=== PATIENT | male | born 1970 | race Two or more races ===

== ENCOUNTER → 2020-03-20 19:27 | Outpatient (REF) | payer MEDICAID, SELFPAY | LOC: HO.SL 19:27 | PROVIDERS: PCP Internal Medicine; Visit Provider Nurse Practitioner Family | DX: G47.33 Obstructive sleep apnea (adult) (pediatric) (principal) | CPT/HCPCS: 95810 ==

== ENCOUNTER → 2020-03-24 13:39 | Outpatient (BNVA) | payer MEDICAID, SELFPAY | PROVIDERS: PCP Internal Medicine; Referring Provider Internal Medicine; Visit Provider Surgery | DX: Z87.19 Personal history of other diseases of the digestive system (principal) | CPT/HCPCS: 46600; 99213 ==

== ENCOUNTER → 2020-03-31 14:11 | Outpatient (BNVA) | payer MEDICAID, SELFPAY | PROVIDERS: PCP Internal Medicine; Referring Provider Internal Medicine; Visit Provider Internal Medicine Endocrinology, Diabetes & Metabolism | DX: E10.65 Type 1 diabetes mellitus with hyperglycemia (principal); E10.649 Type 1 diabetes mellitus with hypoglycemia without coma; E10.21 Type 1 diabetes mellitus with diabetic nephropathy; E10.42 Type 1 diabetes mellitus with diabetic polyneuropathy; E78.5 Hyperlipidemia, unspecified; I10 Essential (primary) hypertension; E55.9 Vitamin D deficiency, unspecified; G47.30 Sleep apnea, unspecified; Z96.41 Presence of insulin pump (external) (internal) | CPT/HCPCS: 82947; 99214 ==

== ENCOUNTER → 2020-04-19 08:50 | Outpatient (BNVA) | payer MEDICAID, SELFPAY | PROVIDERS: Visit Provider Nurse Practitioner Family | DX: G47.33 Obstructive sleep apnea (adult) (pediatric) (principal); E10.42 Type 1 diabetes mellitus with diabetic polyneuropathy; E10.21 Type 1 diabetes mellitus with diabetic nephropathy; E10.649 Type 1 diabetes mellitus with hypoglycemia without coma; I10 Essential (primary) hypertension; E55.9 Vitamin D deficiency, unspecified | CPT/HCPCS: 99212 ==

== ENCOUNTER → 2020-07-04 14:16 | Outpatient (BNVA) | payer MEDICAID, SELFPAY | PROVIDERS: PCP Internal Medicine; Visit Provider Internal Medicine Endocrinology, Diabetes & Metabolism | DX: E10.65 Type 1 diabetes mellitus with hyperglycemia (principal); E10.649 Type 1 diabetes mellitus with hypoglycemia without coma; E10.21 Type 1 diabetes mellitus with diabetic nephropathy; E10.42 Type 1 diabetes mellitus with diabetic polyneuropathy; E55.9 Vitamin D deficiency, unspecified; E78.5 Hyperlipidemia, unspecified; I10 Essential (primary) hypertension | CPT/HCPCS: 82947; 99212 ==

== ENCOUNTER → 2020-07-26 09:42 | Outpatient (BNVA) | payer MEDICAID, SELFPAY | PROVIDERS: PCP Internal Medicine; Visit Provider Nurse Practitioner Family ==

== ENCOUNTER → 2020-10-05 14:16 | Outpatient (BNVA) | payer MEDICAID, SELFPAY | PROVIDERS: PCP Internal Medicine; Visit Provider Internal Medicine Endocrinology, Diabetes & Metabolism | DX: E10.65 Type 1 diabetes mellitus with hyperglycemia (principal); E10.649 Type 1 diabetes mellitus with hypoglycemia without coma; E10.21 Type 1 diabetes mellitus with diabetic nephropathy; E10.42 Type 1 diabetes mellitus with diabetic polyneuropathy; E55.9 Vitamin D deficiency, unspecified; E78.5 Hyperlipidemia, unspecified; I10 Essential (primary) hypertension | CPT/HCPCS: 82947; 99212 ==

== ENCOUNTER → 2020-11-22 08:36 | Outpatient (BNVA) | payer MEDICAID, SELFPAY | PROVIDERS: PCP Internal Medicine; Visit Provider Nurse Practitioner Family ==

== ENCOUNTER 2020-12-31 08:09 | Outpatient (REF) | payer MEDICAID, SELFPAY ==
[2020-12-31 10:38] LABS: Alanine Aminotransferase 27 U/L (0-40); Albumin Level 4.4 g/dL (3.5-5.0); Alkaline Phosphatase 60 U/L (39-117); Anion Gap 11 (12-20); Aspartate Amino Transferase 24 U/L (5-37); Bilirubin Total 0.8 mg/dL (0.0-1.0); Blood Urea Nitrogen 19 mg/dL (9-16); Calcium 9.8 mg/dL (8.4-10.2); Carbon Dioxide 27 mmol/L (22-29); Chloride 105 mmol/L (96-108); Cholesterol 196 mg/dL; Estimated Glomerular Filt Rate > 60; Glucose Fasting 112 mg/dL (60-99); HDL Cholesterol 78 mg/dL; LDL Cholesterol Calculated 112 mg/dl; Sodium 138 mmol/L (135-145); Total Protein 6.7 g/dL (6.5-8.0); Triglycerides 31 mg/dL
[2020-12-31 10:44] LABS: Free T4 (Free Thyroxine) 0.99 ng/dL (0.71-1.85); Thyroid Stimulating Hormone 0.78 uIU/mL (0.32-4.0)
[2021-01-01 13:56] LABS: LDL Cholesterol Direct 102 mg/dL (<100)
[2021-01-02 10:04] LABS: Vitamin B12 682 pg/mL (200-900)
== END 2020-12-31 08:10 | disposition home or self-care (01) ==
LOC: HO.LAB 08:09
PROVIDERS: PCP Internal Medicine; Visit Provider Internal Medicine Endocrinology, Diabetes & Metabolism
DX: E10.65 Type 1 diabetes mellitus with hyperglycemia (principal)
CPT/HCPCS: 36415; 80053; 80061; 82607; 83721; 84439; 84443

== ENCOUNTER → 2021-01-03 14:26 | Outpatient (BNVA) | payer MEDICAID, SELFPAY | PROVIDERS: PCP Internal Medicine; Visit Provider Internal Medicine Endocrinology, Diabetes & Metabolism | DX: E10.65 Type 1 diabetes mellitus with hyperglycemia (principal); E10.649 Type 1 diabetes mellitus with hypoglycemia without coma; E10.21 Type 1 diabetes mellitus with diabetic nephropathy; E10.42 Type 1 diabetes mellitus with diabetic polyneuropathy; E78.00 Pure hypercholesterolemia, unspecified; E55.9 Vitamin D deficiency, unspecified; I10 Essential (primary) hypertension | CPT/HCPCS: 82947; 99212 ==

== ENCOUNTER → 2021-04-12 15:10 | Outpatient (BNVA) | payer MEDICAID, SELFPAY | PROVIDERS: PCP Internal Medicine; Referring Provider Internal Medicine; Visit Provider Surgery | DX: Z87.19 Personal history of other diseases of the digestive system (principal) | CPT/HCPCS: 46600; 99212 ==

== ENCOUNTER 2021-04-17 13:44 | Outpatient (REF) | payer MEDICAID, SELFPAY | END 2021-04-17 13:45 | disposition home or self-care (01) | LOC: HO.LAB 13:44 | PROVIDERS: PCP Internal Medicine; Visit Provider Internal Medicine | DX: Z20.822 Contact with and (suspected) exposure to COVID-19 (principal) | CPT/HCPCS: C9803; U0003; U0005 ==

== ENCOUNTER 2021-04-27 09:37 | Outpatient (REF) | payer MEDICAID, SELFPAY ==
[2021-04-27 10:04] LABS: COVID-19 Test Negative (Negative)
== END 2021-04-27 09:38 | disposition home or self-care (01) ==
LOC: HO.LAB 09:37
PROVIDERS: PCP Internal Medicine; Visit Provider Internal Medicine
DX: Z20.822 Contact with and (suspected) exposure to COVID-19 (principal)
CPT/HCPCS: 36415; 87635; C9803

== ENCOUNTER → 2021-05-16 13:33 | Outpatient (BNVA) | payer MEDICAID, SELFPAY | PROVIDERS: PCP Internal Medicine; Visit Provider Nurse Practitioner Gerontology | DX: E10.65 Type 1 diabetes mellitus with hyperglycemia (principal); E10.649 Type 1 diabetes mellitus with hypoglycemia without coma; E10.21 Type 1 diabetes mellitus with diabetic nephropathy; E10.42 Type 1 diabetes mellitus with diabetic polyneuropathy; E78.00 Pure hypercholesterolemia, unspecified; E55.9 Vitamin D deficiency, unspecified; I10 Essential (primary) hypertension; Z79.4 Long term (current) use of insulin; Z96.41 Presence of insulin pump (external) (internal) | CPT/HCPCS: 82947; 83036; 99212 ==

== ENCOUNTER → 2021-06-08 14:05 | Outpatient (BNVA) | payer MEDICAID, SELFPAY | PROVIDERS: PCP Internal Medicine; Visit Provider Registered Nurse Diabetes Educator | DX: E10.21 Type 1 diabetes mellitus with diabetic nephropathy (principal); Z79.4 Long term (current) use of insulin; Z96.41 Presence of insulin pump (external) (internal) | CPT/HCPCS: 99211 ==

== ENCOUNTER → 2021-06-23 14:04 | Outpatient (BNVA) | payer MEDICAID, SELFPAY | PROVIDERS: PCP Internal Medicine; Visit Provider Registered Nurse Diabetes Educator | DX: E10.649 Type 1 diabetes mellitus with hypoglycemia without coma (principal); Z79.4 Long term (current) use of insulin | CPT/HCPCS: 99211 ==

== ENCOUNTER → 2021-07-13 14:36 | Outpatient (BNVA) | payer MEDICAID, SELFPAY | PROVIDERS: PCP Internal Medicine; Visit Provider Registered Nurse Diabetes Educator | DX: E10.649 Type 1 diabetes mellitus with hypoglycemia without coma (principal); Z79.4 Long term (current) use of insulin; Z96.41 Presence of insulin pump (external) (internal) | CPT/HCPCS: 99211 ==

== ENCOUNTER → 2021-08-23 15:07 | Outpatient (BNVA) | payer MEDICAID, SELFPAY | PROVIDERS: PCP Internal Medicine; Visit Provider Registered Nurse Diabetes Educator | DX: E10.21 Type 1 diabetes mellitus with diabetic nephropathy (principal); Z46.81 Encounter for fitting and adjustment of insulin pump; Z79.4 Long term (current) use of insulin | CPT/HCPCS: 99211 ==

== ENCOUNTER → 2021-09-04 14:46 | Outpatient (BNVA) | payer MEDICAID, SELFPAY | PROVIDERS: PCP Internal Medicine; Visit Provider Nurse Practitioner Gerontology | DX: E10.65 Type 1 diabetes mellitus with hyperglycemia (principal); E10.42 Type 1 diabetes mellitus with diabetic polyneuropathy; E10.21 Type 1 diabetes mellitus with diabetic nephropathy; E10.649 Type 1 diabetes mellitus with hypoglycemia without coma; E78.00 Pure hypercholesterolemia, unspecified; E55.9 Vitamin D deficiency, unspecified; I10 Essential (primary) hypertension; Z79.4 Long term (current) use of insulin; Z96.41 Presence of insulin pump (external) (internal) | CPT/HCPCS: 82947; 83036; 99212 ==

== ENCOUNTER → 2021-09-18 15:03 | Outpatient (BNVA) | payer MEDICAID, SELFPAY | PROVIDERS: PCP Internal Medicine; Visit Provider Registered Nurse Diabetes Educator | DX: E10.649 Type 1 diabetes mellitus with hypoglycemia without coma (principal); Z96.41 Presence of insulin pump (external) (internal); Z79.4 Long term (current) use of insulin | CPT/HCPCS: 99211 ==

== ENCOUNTER → 2021-10-19 13:27 | Outpatient (BNVA) | payer MEDICAID, SELFPAY | PROVIDERS: PCP Internal Medicine; Visit Provider Dietitian, Registered | DX: E10.649 Type 1 diabetes mellitus with hypoglycemia without coma (principal) | CPT/HCPCS: 97802 ==

== ENCOUNTER → 2021-12-13 14:14 | Outpatient (BNVA) | payer MEDICAID, SELFPAY | PROVIDERS: PCP Internal Medicine; Visit Provider Nurse Practitioner Gerontology | DX: E10.65 Type 1 diabetes mellitus with hyperglycemia (principal); E10.649 Type 1 diabetes mellitus with hypoglycemia without coma; E10.42 Type 1 diabetes mellitus with diabetic polyneuropathy; E10.21 Type 1 diabetes mellitus with diabetic nephropathy; E78.00 Pure hypercholesterolemia, unspecified; I10 Essential (primary) hypertension; E55.9 Vitamin D deficiency, unspecified; Z46.81 Encounter for fitting and adjustment of insulin pump; Z79.899 Other long term (current) drug therapy | CPT/HCPCS: 82947; 83036; 99212 ==

== ENCOUNTER → 2021-12-19 14:54 | Outpatient (BNVA) | payer MEDICAID, SELFPAY | PROVIDERS: PCP Internal Medicine; Visit Provider Registered Nurse Diabetes Educator | DX: Z46.81 Encounter for fitting and adjustment of insulin pump (principal); E10.649 Type 1 diabetes mellitus with hypoglycemia without coma | CPT/HCPCS: 99211 ==

== ENCOUNTER → 2022-01-10 14:06 | Outpatient (BNVA) | payer MEDICAID, SELFPAY | PROVIDERS: PCP Internal Medicine; Visit Provider Registered Nurse Diabetes Educator | DX: Z46.81 Encounter for fitting and adjustment of insulin pump (principal); E10.21 Type 1 diabetes mellitus with diabetic nephropathy | CPT/HCPCS: 99211 ==

== ENCOUNTER → 2022-01-26 13:09 | Outpatient (BNVA) | payer MEDICAID, SELFPAY | PROVIDERS: PCP Internal Medicine; Visit Provider Registered Nurse Diabetes Educator | DX: E10.649 Type 1 diabetes mellitus with hypoglycemia without coma (principal) | CPT/HCPCS: 99211 ==

== ENCOUNTER → 2022-02-01 08:21 | Outpatient (BNVA) | payer MEDICAID, SELFPAY | PROVIDERS: PCP Internal Medicine; Visit Provider Registered Nurse Diabetes Educator | DX: Z46.81 Encounter for fitting and adjustment of insulin pump (principal); E10.21 Type 1 diabetes mellitus with diabetic nephropathy; Z79.4 Long term (current) use of insulin | CPT/HCPCS: 99211 ==

== ENCOUNTER → 2022-02-08 14:58 | Outpatient (BNVA) | payer MEDICAID, SELFPAY | PROVIDERS: PCP Internal Medicine; Visit Provider Registered Nurse Diabetes Educator | DX: Z46.81 Encounter for fitting and adjustment of insulin pump (principal); E10.649 Type 1 diabetes mellitus with hypoglycemia without coma; E10.21 Type 1 diabetes mellitus with diabetic nephropathy; E10.42 Type 1 diabetes mellitus with diabetic polyneuropathy | CPT/HCPCS: 99211 ==

== ENCOUNTER → 2022-03-15 15:09 | Outpatient (BNVA) | payer MEDICAID, SELFPAY | PROVIDERS: PCP Internal Medicine; Visit Provider Internal Medicine Endocrinology, Diabetes & Metabolism | DX: E10.649 Type 1 diabetes mellitus with hypoglycemia without coma (principal) | CPT/HCPCS: 82947; 83036; 99211; 99212 ==

== ENCOUNTER 2022-03-17 07:30 | Outpatient (REF) | payer MEDICAID, SELFPAY ==
[2022-03-17 08:21] LABS: Anion Gap 15 (12-20); Blood Urea Nitrogen 13 mg/dL (9-16); Calcium 9.6 mg/dL (8.4-10.2); Carbon Dioxide 26 mmol/L (22-29); Chloride 105 mmol/L (96-108); Cholesterol 114 mg/dL; Estimated Glomerular Filt Rate > 60; Glucose Random 102 mg/dL (60-115); HDL Cholesterol 60 mg/dL; LDL Cholesterol Calculated 47 mg/dl; Potassium 4.6 mmol/L (3.3-5.1); Sodium 141 mmol/L (135-145); Triglycerides 38 mg/dL
[2022-03-17 10:13] LABS: Creatinine Urine 46.72 mg/dL; Microalbum/Creatinine Ratio Ur 34.2 ug/mg cr
== END 2022-03-17 07:31 | disposition home or self-care (01) ==
LOC: HO.LAB 07:30
PROVIDERS: Absent Provider Nurse Practitioner Gerontology; PCP Internal Medicine; Visit Provider Internal Medicine Endocrinology, Diabetes & Metabolism
DX: E10.65 Type 1 diabetes mellitus with hyperglycemia (principal)
CPT/HCPCS: 36415; 80048; 80061; 82043

== ENCOUNTER → 2022-04-03 14:58 | Outpatient (BNVA) | payer MEDICAID, SELFPAY | PROVIDERS: PCP Internal Medicine; Visit Provider Registered Nurse Diabetes Educator | DX: E10.21 Type 1 diabetes mellitus with diabetic nephropathy (principal); Z96.41 Presence of insulin pump (external) (internal); Z79.4 Long term (current) use of insulin | CPT/HCPCS: 99211; 99499 ==

== ENCOUNTER → 2022-05-23 15:06 | Outpatient (BNVA) | payer MEDICAID, SELFPAY | PROVIDERS: PCP Internal Medicine; Visit Provider Registered Nurse Diabetes Educator | DX: E10.649 Type 1 diabetes mellitus with hypoglycemia without coma (principal); Z46.81 Encounter for fitting and adjustment of insulin pump; Z79.4 Long term (current) use of insulin | CPT/HCPCS: 99211 ==

== ENCOUNTER → 2022-05-31 09:04 | Outpatient (BNVA) | payer OTHER, MEDICAID, SELFPAY | PROVIDERS: PCP Internal Medicine; Visit Provider Registered Nurse Diabetes Educator | DX: Z46.81 Encounter for fitting and adjustment of insulin pump (principal); E10.649 Type 1 diabetes mellitus with hypoglycemia without coma | CPT/HCPCS: 99211 ==

== ENCOUNTER → 2022-06-12 15:30 | Outpatient (BNVA) | payer OTHER, MEDICAID, SELFPAY | PROVIDERS: PCP Internal Medicine; Visit Provider Internal Medicine Endocrinology, Diabetes & Metabolism | DX: E10.65 Type 1 diabetes mellitus with hyperglycemia (principal); Z96.41 Presence of insulin pump (external) (internal) | CPT/HCPCS: 82947; 83036; 99212 ==

== ENCOUNTER → 2022-06-20 13:17 | Outpatient (BNVA) | payer OTHER, MEDICAID, SELFPAY | PROVIDERS: PCP Internal Medicine; Visit Provider Registered Nurse Diabetes Educator | DX: Z46.81 Encounter for fitting and adjustment of insulin pump (principal); E10.649 Type 1 diabetes mellitus with hypoglycemia without coma; E10.42 Type 1 diabetes mellitus with diabetic polyneuropathy | CPT/HCPCS: 99211 ==

== ENCOUNTER → 2022-08-08 13:29 | Outpatient (BNVA) | payer OTHER, MEDICAID, SELFPAY | PROVIDERS: PCP Internal Medicine; Visit Provider Dietitian, Registered | DX: E10.649 Type 1 diabetes mellitus with hypoglycemia without coma (principal) | CPT/HCPCS: 97802 ==

== ENCOUNTER → 2022-10-26 07:44 | Outpatient (BNVA) | payer OTHER, MEDICAID, SELFPAY | PROVIDERS: PCP Internal Medicine; Visit Provider Registered Nurse Diabetes Educator ==

== ENCOUNTER → 2022-11-13 15:02 | Outpatient (BNVA) | payer OTHER, MEDICAID, SELFPAY | PROVIDERS: PCP Internal Medicine; Visit Provider Internal Medicine Endocrinology, Diabetes & Metabolism | DX: E10.65 Type 1 diabetes mellitus with hyperglycemia (principal); Z79.4 Long term (current) use of insulin; Z96.41 Presence of insulin pump (external) (internal) | CPT/HCPCS: 82947; 83036 ==

== ENCOUNTER → 2022-11-15 11:33 | Outpatient (BNVA) | payer OTHER, MEDICAID, SELFPAY | PROVIDERS: PCP Internal Medicine; Visit Provider Registered Nurse Diabetes Educator ==

== ENCOUNTER 2022-11-17 10:07 | Outpatient (REF) | payer OTHER, MEDICAID, SELFPAY ==
[2022-11-17 11:26] LABS: Alanine Aminotransferase 17 U/L (0-40); Albumin Level 4.4 g/dL (3.5-5.0); Alkaline Phosphatase 79 U/L (39-117); Anion Gap 15 (12-20); Aspartate Amino Transferase 19 U/L (5-37); Bilirubin Direct 0.2 mg/dL (0.0-0.5); Bilirubin Total 0.6 mg/dL (0.0-1.0); Blood Urea Nitrogen 13 mg/dL (9-16); Carbon Dioxide 28 mmol/L (22-29); Chloride 104 mmol/L (96-108); Cholesterol 155 mg/dL; Estimated Glomerular Filt Rate > 60; Glucose Random 166 mg/dL (60-115); HDL Cholesterol 72 mg/dL; LDL Cholesterol Calculated 73 mg/dl; Potassium 4.7 mmol/L (3.3-5.1); Sodium 142 mmol/L (135-145); Total Protein 6.9 g/dL (6.5-8.0); Triglycerides 50 mg/dL
[2022-11-17 11:59] LABS: Prostate Specific Antigen 0.34 ng/mL (<0.05-4.0); TSH reflex Free T4 1.53 uIU/mL (0.32-4.0)
[2022-11-17 12:43] LABS: Reflex LDLD? No
[2022-11-19 04:37] LABS: HIV AB/AG Nonreactive (Nonreactive); HIV Num 1 0.06 S/CO (0.00-0.99)
[2022-11-19 04:44] LABS: ~HepC Num1 0.08 S/CO (0.00-0.79); ~Hepatitis C Antibody Nonreactive (Nonreactive)
== END 2022-11-17 10:08 | disposition home or self-care (01) ==
LOC: HO.LAB 10:07
PROVIDERS: PCP Internal Medicine; Visit Provider Internal Medicine
DX: Z00.00 Encounter for general adult medical examination without abnormal findings (principal); Z12.5 Encounter for screening for malignant neoplasm of prostate; Z11.4 Encounter for screening for human immunodeficiency virus [HIV]; E78.2 Mixed hyperlipidemia; E10.42 Type 1 diabetes mellitus with diabetic polyneuropathy; I10 Essential (primary) hypertension
CPT/HCPCS: 36415; 80048; 80061; 80076; 84153; 84443; 86803; 87389

== ENCOUNTER → 2022-12-19 10:04 | Outpatient (BNVA) | payer OTHER, MEDICAID, SELFPAY | PROVIDERS: PCP Internal Medicine; Visit Provider Surgery | DX: Z87.19 Personal history of other diseases of the digestive system (principal); K64.4 Residual hemorrhoidal skin tags | CPT/HCPCS: 46600 ==

== ENCOUNTER → 2022-12-21 07:36 | Outpatient (BNVA) | payer OTHER, MEDICAID, SELFPAY | PROVIDERS: PCP Internal Medicine; Visit Provider Registered Nurse Diabetes Educator ==

== ENCOUNTER 2023-01-28 10:06 | Outpatient (AMB) | payer OTHER, MEDICAID, SELFPAY ==
[2023-01-28 10:23] VITALS: BP 140/70
--- NOTE | 2023-01-28 10:23 | MHC.OFFVIS ---
Intake Vital Signs 01/28/23 10:23 Height 5 ft 5 in BP 140/70 H Blood Pressure Location Lt brachial Position Sitting Intake Visit Reasons: Cyst~ Lt buttock Intake Note: This patient presents for an assessment for a cyst on the left buttock. Patient c/o; reports left buttock cyst, reports tenderness. Artist'S Representative Required: No Accompanied by: Self / Same As Patient Allergies almond Allergy (Severe, Verified 01/28/23 10:24) THROAT CLOSES UP divalproex sodium [From DEPAKOTE] Allergy (Unknown, Verified 01/28/23 10:24) HIVES Medication List - Last Reconciled 01/28/23 by Aden Moore MD amlodipine 2.5 mg PO DAILY blood sugar diagnostic (FreeStyle Lite Strips) USE DIRECTED TO CHECK BLOOD SUGAR FOUR TIMES DAILY blood-glucose meter (FreeStyle Lite Meter kit) USE TO CHECK BLOOD GLUCOSE LEVEL FOUR TIMES DAILY bupropion HCl 150 mg PO QAM cholecalciferol (vitamin D3) 50 mcg PO DAILY 30 days ezetimibe 10 mg PO DAILY gabapentin 800 mg PO TID glucagon 3 mg/actuation (Baqsimi) 3 mg intranasal ONCE 30 days insulin lispro (Humalog U-100 Insulin) Up to 100 units daily via insulin pump subcut daily; via insulin pump 30 days insulin pump cart,auto,BT-cntr (Omnipod 5 G6 Intro Kit (Gen 5) subcutaneous cartridge with controller) As directed insulin pump cart,automated,BT (Omnipod 5 G6 Pods (Gen 5) subcutaneous cartridge) As directed change every 72 hrs insulin pump cart,cont inf,BT (Omnipod Dash Pods (Gen 4) subcutaneous cartridge) Replace pod every 48 hours insulin syringes (disposable) As directed injects 4 X/day lamotrigine 25 mg PO DAILY lancets (FreeStyle Lancets) As directed tests 4X/day lisinopril 40 mg PO DAILY paliperidone palmitate (Invega Sustenna) 78 mg IM quetiapine 25 mg PO BEDTIME risperidone (Risperdal) 0.5 mg PO DAILY ropinirole 1 mg PO BEDTIME rosuvastatin 40 mg PO DAILY zolpidem 10 mg PO BEDTIME PRN HPI Cyst~ Lt buttock HPI Details He has a lump on the left buttock that he wants removed. He says he has noticed this for about 4 months now. He says that this has been bothering him with pain and discomfort. 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 Mass of buttock Sleep apnea Vitamin D deficiency Surgical History History of colonoscopy (~2013) History of excision of lesion Family History Father History of hypertension Mother History of diabetes mellitus History of cardiovascular disorder History of hypertension Son History of muscular dystrophy Maternal Uncle History of prostate cancer Social History Household Members: Spouse Alcohol intake: current Alcohol intake frequency: holidays/special occasions only Patient Tobacco Use Status: Never used Tobacco e-Cigarette/Vaping Use: Currently Using Substance Use Type: Former Substance User and Marijuana Review of Systems Const Denies chills and Denies fever(s) Card Denies chest pain, Denies dyspnea and Denies dyspnea on exertion Resp Denies cough, Denies dyspnea and Denies dyspnea on exertion GI Denies hematochezia and Denies change in bowel habits Denies hematuria and Denies difficulty urinating Musc Denies back pain and Denies limited range of motion Neuro Denies focal weakness and Denies convulsions Psych Denies depression and Denies mood swings Physical Exam Vital Signs: Last Vital Signs BP 140/70 H 01/28/23 10:23 Const General: comfortable and no acute distress Orientation/consciousness: patient oriented x3 Neck Neck: Yes no lymphadenopathy Resp Auscultation: clear to auscultation bilaterally Cardio Rhythm: regular rhythm GI Palpation (GI): Soft to palpation, nontender and no guarding Back/Spine/Pelvis Other: Subcutaneous mass in the left buttock, about 1 cm in diameter, mobile and well-defined Neuro General: patient oriented x3 Assessment & Plan Assessment & Plan (1) Mass of buttock: Code(s): R22.2 - Localized swelling, mass and lump, trunk Plan: The seems to be a lipoma. I explained the technique of excision under local anesthesia in the office. I reviewed the risks including but not limited to bleeding and infections, as well as the benefits and alternatives. He wants to proceed. This will be done in the office on his next visit. Coding Level of Care Code Est Pt Level 3 (42366) Diagnoses Mass of buttock R22.2
== END 2023-01-28 10:53 | disposition home or self-care (01) ==
PROVIDERS: PCP Internal Medicine; Referring Provider Internal Medicine Geriatric Medicine; Visit Provider Surgery
DX: R22.2 Localized swelling, mass and lump, trunk (principal)
CPT/HCPCS: 99213

== ENCOUNTER → 2023-01-28 10:06 | Outpatient (BNVA) | payer OTHER, MEDICAID, SELFPAY | PROVIDERS: PCP Internal Medicine; Referring Provider Internal Medicine Geriatric Medicine; Visit Provider Surgery ==

== ENCOUNTER 2023-01-28 14:45 | Outpatient (AMB) | payer OTHER, MEDICAID, SELFPAY ==
--- NOTE | 2023-01-28 15:23 | MHC.AMDMED ---
Intake Intake Visit Reasons: DM Automatic Chief Required: No Accompanied by: Self / Same As Patient Allergies almond Allergy (Severe, Verified 01/28/23 10:24) THROAT CLOSES UP divalproex sodium [From DEPAKOTE] Allergy (Unknown, Verified 01/28/23 10:24) HIVES HPI Comprehensive Diabetes Asmnt Most Recent Diabetes Results: Cholesterol 155 mg/dL 11/17/22 HDL Cholesterol 72 mg/dL 11/17/22 Triglycerides 50 mg/dL 11/17/22 Creatinine 1.05 mg/dL (0.5-1.4) 11/17/22 Blood Urea Nitrogen 13 mg/dL (9-16) 11/17/22 Sodium 142 mmol/L (135-145) 11/17/22 Potassium 4.7 mmol/L (3.3-5.1) 11/17/22 Chloride 104 mmol/L (96-108) 11/17/22 Carbon Dioxide 28 mmol/L (22-29) 11/17/22 Calcium 10.0 mg/dL (8.4-10.2) 11/17/22 AST 19 U/L (5-37) 11/17/22 ALT 17 U/L (0-40) 11/17/22 Total Protein 6.9 g/dL (6.5-8.0) 11/17/22 Albumin 4.4 g/dL (3.5-5.0) 11/17/22 [facility] Medical History (Updated 01/28/23 @ 10:51 by Aden Moore MD) AIN grade II Diabetes mellitus Diabetes type 1, uncontrolled Diabetic nephropathy associated with type 1 diabetes mellitus Diabetic polyneuropathy associated with type 1 diabetes mellitus History of anal dysplasia Hyperlipidemia Hypertension 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 Mass of buttock Sleep apnea Vitamin D deficiency Surgical History History of colonoscopy (~2013) History of excision of lesion Family History Father History of hypertension Mother History of diabetes mellitus History of cardiovascular disorder History of hypertension Son History of muscular dystrophy Maternal Uncle History of prostate cancer Social History Household Members: Spouse Alcohol intake: current Alcohol intake frequency: holidays/special occasions only Patient Tobacco Use Status: Never used Tobacco e-Cigarette/Vaping Use: Currently Using Substance Use Type: Former Substance User and Marijuana Assessment & Plan Assessment & Plan (1) 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 Patient reports when he has hyperglycemia he prefers to set increase temp basal. Patient also continues to bolus after eating, which contributes to postprandial hyperglycemia. The following topics were reviewed today: - using activity feature with Omnipod 5 - How to interpret data - benefits of using auto mode ?auto mode:7% ?manual mode:93% - Inserting infusion set or Pod site rotation Average glucose for the past 2 weeks with 152 mg/dL Patient above target 33% Patient at target 59% Patient below target 8% Encourage patient to use auto mode as much as possible. Adjusted lunchtime insulin to carb ratio, and decreased target goals. See changes below Dexcom account information: User Name: [email or web address] Password: [email or web address] Setting verified by [employer] Basal rate(s) (units/hour) : 12 AM to 12 AM 0.65 units / hr 12 PM? to 12 AM ? 0.95 units / hr? Bolus setting Insulin Carbohydrate Ratio (s) 12 AM? to? 11 AM? 1:15?? New 11 AM to 3 PM 1:18 3 PM to 12 AM 1:14 Correction Factor / Sensitivity Factor 12 AM-5:30 AM 1:70 5:30 AM to 12 AM 1:50 Active Insulin Time:?New 3 hours Target(s): New 12 AM to 6 AM 120 mg/dL New 6 AM to 3 PM? 110 mg/dL New 3 PM to 12 AM 110 mg/dL Reverse correction: On Patient Instructions: Patient will follow-up with clinical nurse educator in 3 weeks Coding Level of Care Code Est Pt Level 1 (52705) Diagnoses 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 E10.649
== END 2023-01-28 15:28 | disposition home or self-care (01) ==
PROVIDERS: PCP Internal Medicine; Visit Provider Registered Nurse Diabetes Educator
DX: E10.649 Type 1 diabetes mellitus with hypoglycemia without coma (principal)
CPT/HCPCS: 99211

== ENCOUNTER 2023-02-11 14:40 | Outpatient (REF) | payer OTHER, MEDICAID, SELFPAY | END 2023-02-11 14:41 | disposition home or self-care (01) | LOC: HO.LNP 14:40 | PROVIDERS: PCP Internal Medicine; Visit Provider Surgery | DX: R22.2 Localized swelling, mass and lump, trunk (principal) | CPT/HCPCS: 11402; 88304; 88305 ==

== ENCOUNTER 2023-02-11 14:40 | Outpatient (AMB) | payer OTHER, MEDICAID, SELFPAY ==
[2023-02-11 14:55] VITALS: BP 96/52; PULSE 75; BMI 24.8
--- NOTE | 2023-02-11 14:55 | MHC.OFFVIS ---
Intake Vital Signs 02/11/23 14:55 Height 5 ft 5 in Weight 149 lb BMI 24.8 BP 96/52 L Blood Pressure Location Rt brachial Position Sitting Pulse 75 Intake Visit Reasons: Exc subcutaneous left buttock mass Intake Note: Ptient here for exc of lt buttock mass. 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 Mass of buttock Sleep apnea Vitamin D deficiency Surgical History History of colonoscopy (~2013) History of excision of lesion Family History Father History of hypertension Mother History of diabetes mellitus History of cardiovascular disorder History of hypertension Son History of muscular dystrophy Maternal Uncle History of prostate cancer Social History Household Members: Spouse Alcohol intake: current Alcohol intake frequency: holidays/special occasions only Patient Tobacco Use Status: Never used Tobacco e-Cigarette/Vaping Use: Currently Using Substance Use Type: Former Substance User and Marijuana Physical Exam Vital Signs: Last Vital Signs Pulse 75 02/11/23 14:55 BP 96/52 L 02/11/23 14:55 BMI result Body Mass Index 24.8 Office Procedures Excision Details: He was placed in prone position. The area of the subcutaneous mass was prepped and draped. Lidocaine 1% was used for local anesthesia. I made an incision on the skin overlying the mass. This was carried down sharply through the full-thickness of the skin and subcutaneous mass until I have visualize the mass. This was an irregular, fibrotic and calcified mass, about 1 cm in size. This was excised sharply and sent as a specimen. I closed the incision with full-thickness nylon 3-0 interrupted sutures. Dressings were applied. The procedure was completed. He tolerated procedure well. There were no immediate complications. There was minimal blood loss. [id number]/arms/legs 1.1-2cm Procedure code (CPT) selection complete Assessment & Plan Assessment & Plan (1) Mass of buttock: Code(s): R22.2 - Localized swelling, mass and lump, trunk Plan: Excision was done. He tolerated procedure well. He was given wound care instructions. He will be seen in the office for follow-up. We will await for the path report. Coding Level of Care Code Procedure Only Diagnoses Mass of buttock R22.2 CPT Codes Trunk/Arms/Legs - CPT: 73053-zaxgo/arms/legs 1.1-2cm ([id number])
== END 2023-02-11 15:38 | disposition home or self-care (01) ==
PROVIDERS: PCP Internal Medicine; Visit Provider Surgery
DX: L72.0 Epidermal cyst (principal)
CPT/HCPCS: 11402

== ENCOUNTER 2023-02-13 15:06 | Outpatient (AMB) | payer OTHER, MEDICAID, SELFPAY ==
--- NOTE | 2023-02-13 15:07 | A.OFFVIS_ITS ---
Intake Vital Signs 02/13/23 15:08 Height 5 ft 5 in Weight 149 lb 4.047 oz BMI 24.8 BP 102/44 L Blood Pressure Location Lt brachial Position Sitting Pulse 69 Pulse Source Pulse Oximeter Intake Visit Reasons: DM pump and sensor Intake Note: Patient present today to follow up on Type 1 Diabetes Mellitus. Patient receives DME supplies through: [employer] Last Diabetic Eye exam: approx 9 months ago Last Podiatry Visit: Over 1 year ago Random Glucose: 144 mg/dl HgA1C: 6.4% Javascript Ui Developer Required: No Accompanied by: Self / Same As Patient Allergies almond Allergy (Severe, Verified 02/13/23 15:12) THROAT CLOSES UP divalproex sodium [From DEPAKOTE] Allergy (Unknown, Verified 02/13/23 15:12) HIVES HPI HPI Comments History of Present Illness Details Patient is 52-year-old male with DM type 1 diagnosed at 7 years of age who presents for management of diabetes. Past medical history: Diabetes type 1, bipolar disorder hypertension hyperlipidemia Micro and macrovascular complications: Retinopathy, nephropathy Diabetes medications: Omnipod pump 5 and Dexcom G 6 with Humalog insulin. Settings Basal rate(s) (units/hour) : 12 AM to 12 AM 0.65 units / hr 12 PM? to 12 AM ? 0.95 units / hr? Bolus setting Insulin Carbohydrate Ratio (s) 12 AM? to? 11 AM? 1:15?? New 11 AM to 3 PM 1:18 3 PM to 12 AM 1:14 Correction Factor / Sensitivity Factor 12 AM-5:30 AM 1:70 5:30 AM to 12 AM 1:50 Active Insulin Time:?New 3 hours Target(s): New 12 AM to 6 AM 120 mg/dL New 6 AM to 3 PM? 110 mg/dL New 3 PM to 12 AM 110 mg/dL Total daily dose of insulin is 25.7 with 60% basal and 40% bolus. Order motors use 85% of time with manual mode 15%. Total carbs 146.5 CGM: average blood glucose for the last 2 weeks is 144. standard deviations 54. GM I 6.8 3% blood glucose very low less than 54. 4% low less than 70. 63% in target range of 71-180. The rest high. C GM is active 100%. Pattern shows hypoglycemia occurring after dinner and to a lesser extent after breakfast and lunch Symptoms reported: + Tingling in lower extremities Hypoglycemia: most days, sometimes after meals and 3 in the afternoon particularly if doesn't eat lunch . Reports that blood glucose can be down to 30 can feel normal. Treats with juice Hyperglycemia: denies urinary frequency, + nocturia, polydypsia States he is not eating as much as lost 10 lb. 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 Ophthalmology evaluation: last saw 2 mos ago Laboratory Tests 12/31/20 12/31/20 12/31/20 08:30 08:30 08:30 Creatinine 1.02 Estimated GFR > 60 Hgb A1c (Clinic) Triglycerides 31 Cholesterol 196 LDL Cholesterol Di rect 102 H LDL Cholesterol, C alc 112 HDL Cholesterol 78 Vitamin B12 682 TSH 0.78 01/03/21 15:06 Creatinine Estimated GFR Hgb A1c (Clinic) 7.3 H Triglycerides Cholesterol LDL Cholesterol Di rect LDL Cholesterol, C alc HDL Cholesterol Vitamin B12 TSH PFSH Medical History AIN grade II Diabetes mellitus Diabetes type 1, uncontrolled Diabetic nephropathy associated with type 1 diabetes mellitus Diabetic polyneuropathy associated with type 1 diabetes mellitus History of anal dysplasia Hyperlipidemia Hypertension 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 Mass of buttock Sleep apnea Vitamin D deficiency Surgical History History of colonoscopy (~2013) History of excision of lesion Family History Father History of hypertension Mother History of diabetes mellitus History of cardiovascular disorder History of hypertension Son History of muscular dystrophy Maternal Uncle History of prostate cancer Social History Household Members: Spouse Alcohol intake: current Alcohol intake frequency: holidays/special occasions only Patient Tobacco Use Status: Never used Tobacco e-Cigarette/Vaping Use: Currently Using Substance Use Type: Former Substance User and Marijuana Physical Exam Vital Signs: Last Vital Signs Pulse 69 02/13/23 15:08 BP 102/44 L 02/13/23 15:08 BMI result Body Mass Index 24.8 Absence of Cushingoid features. Absence of acromegalic features. Neck exam reveals nl size thyroid about 15 gms. No thyroid nodules palpable. No carotid bruits present. Lungs CTA. Heart S1 S2, Reg R/R. No M/R/ G. Skin exam reveals absence of vitiligo or acanthosis nigricans. Abdominal exam reveals Soft NT/ND with NA BS. No organomegaly present. Extrem Other: Visual exam of foot performed. No ulcerations or open lesions. No onchomycosis, no callouses.Pulses 2 + distally. Sensation intact to monofilament exam. Vibratory sensation sensed 10 seconds in right, 10 seconds in left with 128 Hz tuning fork Results AMB Hemoglobin A1c AMB Hemoglobin A1c 6.4 % Last Edit by Amber Spicer on 02/13/23 15:31 Results Reviewed Results Reviewed: 02/13/23 15:18 Glucose, Whole Blood Routine Laboratory Last Values Glucose (Clinic) 144 mg/dL (60-115) H 02/13/23 15:18 Hgb A1c (Clinic) 6.4 % (4.0-6.0) H 02/13/23 15:24 Assessment & Plan Assessment & Plan (1) Diabetes type 1, uncontrolled: Code(s): E10.65 - Type 1 diabetes mellitus with hyperglycemia Qualifiers: Glycemic state: with hyperglycemia Qualified Code(s): E10.65 - Type 1 diabetes mellitus with hyperglycemia Plan: This is a 51-year-old male with history of type 1 diabetes being treated with the Omnipod 5 pump with Dexcom G6 with good glycemic control and known microvascular complications namely neuropathy. The plan is to loosen the I:C to 1:15 at 3 PM Patient will follow up with automated teller manager and additional changes including loosening the insulin: Carbohydrate at lunch if patient continues to have hypoglycemia mid- afternoon may need to be made Orders: Orders AMB Hemoglobin A1c Today E10.649 - Type 1 diabetes mellitus with hypoglycemia without coma Coding Level of Care Code Est Pt Level 4 (15640) Diagnoses Diabetes type 1, uncontrolled E10.65 Glycemic state: with hyperglycemia
[2023-02-13 15:08] VITALS: BP 102/44; PULSE 69; BMI 24.8
[2023-02-13 15:22] LABS: Glucose, Whole Blood 144 mg/dL (60-115)
== END 2023-02-13 15:41 | disposition home or self-care (01) ==
PROVIDERS: PCP Internal Medicine; Visit Provider Internal Medicine Endocrinology, Diabetes & Metabolism
DX: E10.65 Type 1 diabetes mellitus with hyperglycemia (principal); E10.649 Type 1 diabetes mellitus with hypoglycemia without coma
CPT/HCPCS: 99214

== ENCOUNTER → 2023-02-13 15:06 | Outpatient (BNVA) | payer OTHER, MEDICAID, SELFPAY | PROVIDERS: PCP Internal Medicine; Visit Provider Internal Medicine Endocrinology, Diabetes & Metabolism | DX: E10.649 Type 1 diabetes mellitus with hypoglycemia without coma (principal); E10.65 Type 1 diabetes mellitus with hyperglycemia; E10.21 Type 1 diabetes mellitus with diabetic nephropathy; E10.42 Type 1 diabetes mellitus with diabetic polyneuropathy; Z79.4 Long term (current) use of insulin; Z96.41 Presence of insulin pump (external) (internal) | CPT/HCPCS: 82947; 83036 ==

== ENCOUNTER 2023-02-20 14:12 | Outpatient (AMB) | payer OTHER, MEDICAID, SELFPAY ==
--- NOTE | 2023-02-20 14:44 | A.OFFVIS_ITS ---
Intake Intake Visit Reasons: DM Computer Network And Systems Engineer Required: No Accompanied by: Self / Same As Patient Allergies almond Allergy (Severe, Verified 02/13/23 15:12) THROAT CLOSES UP divalproex sodium [From DEPAKOTE] Allergy (Unknown, Verified 02/13/23 15:12) HIVES HPI Comprehensive Diabetes Asmnt Most Recent Diabetes Results: Cholesterol 155 mg/dL 11/17/22 HDL Cholesterol 72 mg/dL 11/17/22 Triglycerides 50 mg/dL 11/17/22 Creatinine 1.05 mg/dL (0.5-1.4) 11/17/22 Blood Urea Nitrogen 13 mg/dL (9-16) 11/17/22 Sodium 142 mmol/L (135-145) 11/17/22 Potassium 4.7 mmol/L (3.3-5.1) 11/17/22 Chloride 104 mmol/L (96-108) 11/17/22 Carbon Dioxide 28 mmol/L (22-29) 11/17/22 Calcium 10.0 mg/dL (8.4-10.2) 11/17/22 AST 19 U/L (5-37) 11/17/22 ALT 17 U/L (0-40) 11/17/22 Total Protein 6.9 g/dL (6.5-8.0) 11/17/22 Albumin 4.4 g/dL (3.5-5.0) 11/17/22 [facility] Medical History AIN grade II Diabetes mellitus Diabetes type 1, uncontrolled Diabetic nephropathy associated with type 1 diabetes mellitus Diabetic polyneuropathy associated with type 1 diabetes mellitus History of anal dysplasia Hyperlipidemia Hypertension 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 Mass of buttock Sleep apnea Vitamin D deficiency Surgical History History of colonoscopy (~2013) History of excision of lesion Family History Father History of hypertension Mother History of diabetes mellitus History of cardiovascular disorder History of hypertension Son History of muscular dystrophy Maternal Uncle History of prostate cancer Social History Household Members: Spouse Alcohol intake: current Alcohol intake frequency: holidays/special occasions only Patient Tobacco Use Status: Never used Tobacco e-Cigarette/Vaping Use: Currently Using Substance Use Type: Former Substance User and Marijuana Assessment & Plan Assessment & Plan (1) 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 Patient reports when he has hyperglycemia he prefers to set increase temp basal.? Patient also continues to bolus after eating, which contributes to postprandial hyperglycemia. The following topics were reviewed today: - using activity feature with Omnipod 5 - How to interpret data - benefits of using auto mode ?auto mode:65% ?manual mode:35% - Inserting infusion set or Pod site rotation Average glucose for the past 2 weeks with 146 mg/dL Patient above target 25% Patient at target 67% Patient below target 8% Patient has improved time spent in auto mode from 7% to 65% in the last 3 weeks, patient is still consistently having extended hypoglycemic events when he is in auto mode. See decreases to basal rate in increase to insulin to carb ratio below. ? Dexcom account information: User Name: [email or web address] Password: [email or web address] Setting verified by [employer], see changes below Basal rate(s) (units/hour) : 12 AM to 12 AM 0.65 units / hr New 12 AM to 12 AM 0.50 units / hr 12 PM? to 12 AM ? 0.95 units / hr?New 2 PM? to 12 AM ? 0.75 units / hr? Bolus setting Insulin Carbohydrate Ratio (s) 12 AM? to? 11 AM? 1:15??New 12 AM? to? 11 AM? 1:16 11 AM to 3 PM 1:18 New 11 AM to 3 PM 1:18.5 3 PM to 12 AM 1:15 New 3 PM to 12 AM 1:16 Correction Factor / Sensitivity Factor 12 AM-5:30 AM 1:70 5:30 AM to 12 AM 1:50 Active Insulin Time:?New 3 hours Target(s): 12 AM to 6 AM 120 mg/dL 6 AM to 3 PM? 110 mg/dL 3 PM to 12 AM 110 mg/dL Reverse correction: On Patient Instructions: Patient will follow-up with sewer pipe offbearer in 3 months, patient will contact sewer pipe offbearer if hypoglycemia persists Coding Level of Care Code Est Pt Level 1 (64911) Diagnoses 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 E10.649
== END 2023-02-20 14:44 | disposition home or self-care (01) ==
PROVIDERS: PCP Internal Medicine; Visit Provider Registered Nurse Diabetes Educator
DX: E10.649 Type 1 diabetes mellitus with hypoglycemia without coma (principal)

== ENCOUNTER → 2023-02-20 14:12 | Outpatient (BNVA) | payer OTHER, MEDICAID, SELFPAY | PROVIDERS: PCP Internal Medicine; Visit Provider Registered Nurse Diabetes Educator | DX: Z46.81 Encounter for fitting and adjustment of insulin pump (principal); E10.649 Type 1 diabetes mellitus with hypoglycemia without coma | CPT/HCPCS: 99211 ==

== ENCOUNTER 2023-02-25 14:45 | Outpatient (AMB) | payer OTHER, MEDICAID, SELFPAY ==
--- NOTE | 2023-02-25 14:48 | A.OFFVIS_ITS ---
Intake Vital Signs 02/25/23 14:52 Height 5 ft 5 in Weight 147 lb BMI 24.5 BP 119/56 L Blood Pressure Location Rt brachial Position Sitting Pulse 67 Intake Visit Reasons: Follow Up Exc left buttock mass Intake Note: This patient presents for a post-op assessment status post excision left buttock mass. Patient c/o; reports no complaints or concerns at this time pertaining to surgery. Lands Resource Manager Required: No Accompanied by: Self / Same As Patient Allergies almond Allergy (Severe, Verified 02/25/23 14:53) THROAT CLOSES UP divalproex sodium [From DEPAKOTE] Allergy (Unknown, Verified 02/25/23 14:53) HIVES HPI Follow Up Exc left buttock mass HPI Details He underwent excision of a left buttock mass under local anesthesia last 02/11/2023. He tolerated procedure well and currently denies significant complaints. 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 Diabetic nephropathy associated with type 1 diabetes mellitus Diabetic polyneuropathy associated with type 1 diabetes mellitus Diabetes type 1, uncontrolled AIN grade II Hyperlipidemia Hypertension Diabetes mellitus Surgical History History of excision of mass (~02/11/23) History of excision of lesion History of colonoscopy (~2013) Family History Father History of hypertension Mother History of diabetes mellitus History of cardiovascular disorder History of hypertension Son History of muscular dystrophy Maternal Uncle History of prostate cancer Social History Household Members: Spouse Alcohol intake: current Alcohol intake frequency: holidays/special occasions only Patient Tobacco Use Status: Never used Tobacco e-Cigarette/Vaping Use: Currently Using Substance Use Type: Former Substance User and Marijuana Review of Systems Const Denies chills and Denies fever(s) Card Denies chest pain, Denies dyspnea and Denies dyspnea on exertion Resp Denies cough, Denies dyspnea and Denies dyspnea on exertion GI Denies hematochezia and Denies change in bowel habits Denies hematuria and Denies difficulty urinating Musc Denies back pain and Denies limited range of motion Neuro Denies focal weakness and Denies convulsions Psych Denies depression and Denies mood swings Physical Exam Vital Signs: Last Vital Signs Pulse 67 02/25/23 14:52 BP 119/56 L 02/25/23 14:52 BMI result Body Mass Index 24.5 Const General: comfortable and no acute distress Back/Spine/Pelvis Other: Excision site on the left buttock is well healed, not infected, sutures intact Assessment & Plan Assessment & Plan (1) Mass of buttock: Code(s): R22.2 - Localized swelling, mass and lump, trunk Plan: Status post excision. His path report shows panniculitis and subcutaneous fat necrosis. His incision is well healed. I removed his sutures. I explained to him the benign nature of the pathology. He can follow up on a p.r.n. basis. Coding Level of Care Code Global (81302) Diagnoses Mass of buttock R22.2
[2023-02-25 14:52] VITALS: BP 119/56; PULSE 67; BMI 24.5
== END 2023-02-25 14:57 | disposition home or self-care (01) ==
PROVIDERS: PCP Internal Medicine; Visit Provider Surgery
DX: R22.2 Localized swelling, mass and lump, trunk (principal)
CPT/HCPCS: 99024

== ENCOUNTER → 2023-02-25 14:45 | Outpatient (BNVA) | payer OTHER, MEDICAID, SELFPAY | PROVIDERS: PCP Internal Medicine; Visit Provider Surgery ==

== ENCOUNTER 2023-05-22 14:35 | Outpatient (AMB) | payer OTHER, MEDICAID, SELFPAY ==
--- NOTE | 2023-05-22 15:13 | MHC.AMDMED ---
Intake Intake Visit Reasons: DM/Confirmed Junior Designer Required: No Accompanied by: Self / Same As Patient Allergies almond Allergy (Severe, Verified 02/25/23 14:53) THROAT CLOSES UP divalproex sodium [From DEPAKOTE] Allergy (Unknown, Verified 02/25/23 14:53) HIVES HPI Comprehensive Diabetes Asmnt Most Recent Diabetes Results: No Data to Display [facility] Medical History Mass of buttock History of anal dysplasia Sleep apnea Vitamin D deficiency 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 Diabetic nephropathy associated with type 1 diabetes mellitus Diabetic polyneuropathy associated with type 1 diabetes mellitus Diabetes type 1, uncontrolled AIN grade II Hyperlipidemia Hypertension Diabetes mellitus Surgical History History of excision of mass (~02/11/23) History of excision of lesion History of colonoscopy (~2013) Family History Father History of hypertension Mother History of diabetes mellitus History of cardiovascular disorder History of hypertension Son History of muscular dystrophy Maternal Uncle History of prostate cancer Social History Household Members: Spouse Alcohol intake: current Alcohol intake frequency: holidays/special occasions only Patient Tobacco Use Status: Never used Tobacco e-Cigarette/Vaping Use: Currently Using Substance Use Type: Former Substance User and Marijuana Assessment & Plan Assessment & Plan (1) 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: Code(s): E10.649 - Type 1 diabetes mellitus with hypoglycemia without coma Plan: Patient presents for pump training for Omnipod 5 with Dexcom G 6 The following topics were reviewed today: - using activity feature with Omnipod 5 - How to interpret data - benefits of using auto mode - Inserting infusion set or Pod site rotation Average glucose for the past 2 weeks with 184 mg/dL Patient above target 43% Patient at target 52% Patient below target 4% patient is in auto mode 52% the time in manual on 48% time. on days where patient is in auto mode his average glucose is 140 mg/dL, on days that patient is in manual mode his glucose is averaging 200 mg/dL patient reports that he has been eating more than usual so he has been switching into manual mode to use temp basal, but then forgets to go back into auto mode Patient also continues to bolus after eating, which contributes to postprandial hyperglycemia. encourage patient to bolus 15 minutes prior to meals ? Dexcom account information: User Name: [email or web address] Password: [email or web address] Setting verified by [facility], see changes below Basal rate(s) (units/hour) : 12 AM to 12 AM 0.60 units / hr New 12 AM to 12 AM 0.65 units / hr 12 PM? to 12 AM ? 0.75 units / hr?New 2 PM? to 12 AM ? 0.95 units / hr? Bolus setting Insulin Carbohydrate Ratio (s) 12 AM? to? 11 AM? 1:16??New 12 AM? to? 11 AM? 1:15.5 11 AM to 3 PM 1:18.5 New 11 AM to 3 PM 1:18 3 PM to 12 AM 1:16 New 3 PM to 12 AM 1:15.5 Correction Factor / Sensitivity Factor 12 AM-5:30 AM 1:70 5:30 AM to 12 AM 1:50 Active Insulin Time:?New 3 hours Target(s): 12 AM to 6 AM 120 mg/dL 6 AM to 3 PM? 110 mg/dL 3 PM to 12 AM 110 mg/dL Reverse correction: On Coding Level of Care Code Est Pt Level 1 (13240) Diagnoses 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 E10.649
== END 2023-05-22 15:14 | disposition home or self-care (01) ==
PROVIDERS: PCP Internal Medicine; Visit Provider Registered Nurse Diabetes Educator
DX: E10.649 Type 1 diabetes mellitus with hypoglycemia without coma (principal)

== ENCOUNTER → 2023-05-22 14:35 | Outpatient (BNVA) | payer OTHER, MEDICAID, SELFPAY | PROVIDERS: PCP Internal Medicine; Visit Provider Registered Nurse Diabetes Educator | DX: Z46.81 Encounter for fitting and adjustment of insulin pump (principal); E10.649 Type 1 diabetes mellitus with hypoglycemia without coma | CPT/HCPCS: 99211 ==

== ENCOUNTER 2023-05-29 14:41 | Outpatient (AMB) | payer OTHER, MEDICAID, SELFPAY ==
[2023-05-29 14:42] VITALS: BP 122/48; PULSE 66; BMI 25.0
--- NOTE | 2023-05-29 14:42 | MHC.OFFVIS ---
Intake Vital Signs 05/29/23 14:42 Height 5 ft 5 in Weight 150 lb 5.684 oz BMI 25.0 BP 122/48 L Blood Pressure Location Lt brachial Position Sitting Pulse 66 Pulse Source Pulse Oximeter Intake Visit Reasons: DM-CONFIRMED Intake Note: Patient presents today to follow up on DMT1. Last Diabetic Eye exam: 04/2022 Last Podiatry Visit: None Random Glucose: 153 mg/dl HgA1C:7.1% Entry Level Paralegal Required: No Accompanied by: Self / Same As Patient Allergies almond Allergy (Severe, Verified 05/29/23 14:48) THROAT CLOSES UP divalproex sodium [From DEPAKOTE] Allergy (Unknown, Verified 05/29/23 14:48) HIVES HPI HPI Comments History of Present Illness Details Patient is 52-year-old male with DM type 1 diagnosed at 7 years of age who presents for management of diabetes. Past medical history: Diabetes type 1, bipolar disorder hypertension hyperlipidemia Micro and macrovascular complications: Retinopathy, nephropathy Diabetes medications: Omnipod pump 5 and Dexcom G 6 with Humalog insulin. Settings Basal rate(s) (units/hour) : 12 AM to 12 PM 0.65 units / hr 12 PM? to 12 AM ? 0.95 units / hr? Bolus setting Insulin Carbohydrate Ratio (s) 12 AM? to? 11 AM? 1:15.5?? New 11 AM to 3 PM 1:18 3 PM to 12 AM 1:15.5 Correction Factor / Sensitivity Factor 12 AM-5:30 AM 1:70 5:30 AM to 12 AM 1:60 Active Insulin Time:?New 3 hours Target(s): New 12 AM to 6 AM 120 mg/dL New 6 AM to 3 PM? 110 mg/dL New 3 PM to 12 AM 110 mg/dL Total daily dose of insulin is 27.5 with 59% basal and 41% bolus. Auto mode use 55% of time with manual mode 45%. Total carbs 127.8 CGM: average blood glucose for the last 2 weeks is 162. standard deviations 68. GM I 7.2 23% blood glucose very low less than 54. 4% low less than 70. 58% in target range of 71-180. The rest high. C GM is active 100%. Pattern shows hypoglycemia occurring after dinner and to a lesser extent after breakfast and lunch Symptoms reported: + Tingling in lower extremities Hypoglycemia: rare l. Treats with juice Hyperglycemia: denies urinary frequency, + nocturia, polydypsia States he is not eating as much as lost 10 lb. 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 Ophthalmology evaluation: last saw beginning of this yr Laboratory Tests 12/31/20 12/31/20 12/31/20 08:30 08:30 08:30 Creatinine 1.02 Estimated GFR > 60 Hgb A1c (Clinic) Triglycerides 31 Cholesterol 196 LDL Cholesterol Di rect 102 H LDL Cholesterol, C alc 112 HDL Cholesterol 78 Vitamin B12 682 TSH 0.78 01/03/21 15:06 Creatinine Estimated GFR Hgb A1c (Clinic) 7.3 H Triglycerides Cholesterol LDL Cholesterol Di rect LDL Cholesterol, C alc HDL Cholesterol Vitamin B12 TSH PFSH Medical History Mass of buttock History of anal dysplasia Sleep apnea Vitamin D deficiency 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 Diabetic nephropathy associated with type 1 diabetes mellitus Diabetic polyneuropathy associated with type 1 diabetes mellitus Diabetes type 1, uncontrolled AIN grade II Hyperlipidemia Hypertension Diabetes mellitus Surgical History History of excision of mass (~02/11/23) History of excision of lesion History of colonoscopy (~2013) Family History Father History of hypertension Mother History of diabetes mellitus History of cardiovascular disorder History of hypertension Son History of muscular dystrophy Maternal Uncle History of prostate cancer Social History Household Members: Spouse Alcohol intake: current Alcohol intake frequency: holidays/special occasions only Patient Tobacco Use Status: Never used Tobacco e-Cigarette/Vaping Use: Currently Using Substance Use Type: Former Substance User and Marijuana Physical Exam Vital Signs: Last Vital Signs Pulse 66 05/29/23 14:42 BP 122/48 L 05/29/23 14:42 BMI result Body Mass Index 25.0 Absence of Cushingoid features. Absence of acromegalic features. Neck exam reveals nl size thyroid about 15 gms. No thyroid nodules palpable. No carotid bruits present. Lungs CTA. Heart S1 S2, Reg R/R. No M/R/ G. Skin exam reveals absence of vitiligo or acanthosis nigricans. Abdominal exam reveals Soft NT/ND with NA BS. No organomegaly present. Extrem Other: Visual exam of foot performed. No ulcerations or open lesions. No onchomycosis, no callouses.Pulses 2 + distally. Sensation intact to monofilament exam. Vibratory sensation sensed 10 seconds in right, 10 seconds in left with 128 Hz tuning fork Results Reviewed Results Reviewed: Laboratory Last Values Glucose (Clinic) 153 mg/dL (60-115) H 05/29/23 14:53 Assessment & Plan Assessment & Plan (1) Diabetes type 1, uncontrolled: Code(s): E10.65 - Type 1 diabetes mellitus with hyperglycemia Qualifiers: Glycemic state: with hyperglycemia Qualified Code(s): E10.65 - Type 1 diabetes mellitus with hyperglycemia Plan: This is a 51-year-old male with history of type 1 diabetes being treated with the Omnipod 5 pump with Dexcom G6 with good glycemic control and known microvascular complications namely neuropathy. But significant hypoglycemia early and mid afternoon The plan is to impress on the patient to use the auto mode more frequently and to bolus before meals. If he continues to experience hypoglycemia while in auto mode could consider loosening insulin: Carbohydrate at 00:00 to 01:16. He can make that adjustment we follows up with the telehealth nurse educator if necessary. Will also check microalbumin to creatinine ratio Orders: Orders Microalbumin, Random (w Creat) Today E10.65 - Type 1 diabetes mellitus with hyperglycemia Coding Level of Care Code Est Pt Level 4 (25899) Diagnoses Uncontrolled type 1 diabetes mellitus with hyperglycemia E10.65 Glycemic state: with hyperglycemia
[2023-05-29 14:58] LABS: Glucose, Whole Blood 153 mg/dL (60-115)
== END 2023-05-29 16:23 | disposition home or self-care (01) ==
PROVIDERS: PCP Internal Medicine; Visit Provider Internal Medicine Endocrinology, Diabetes & Metabolism
DX: E10.65 Type 1 diabetes mellitus with hyperglycemia (principal)
CPT/HCPCS: 99214

== ENCOUNTER → 2023-05-29 14:41 | Outpatient (BNVA) | payer OTHER, MEDICAID, SELFPAY | PROVIDERS: PCP Internal Medicine; Visit Provider Internal Medicine Endocrinology, Diabetes & Metabolism | DX: E10.65 Type 1 diabetes mellitus with hyperglycemia (principal); Z96.41 Presence of insulin pump (external) (internal) | CPT/HCPCS: 82947 ==

== ENCOUNTER → 2023-05-30 14:20 | Outpatient (BNV) | payer OTHER, MEDICAID, SELFPAY | PROVIDERS: PCP Internal Medicine; Visit Provider Internal Medicine Endocrinology, Diabetes & Metabolism | DX: E10.42 Type 1 diabetes mellitus with diabetic polyneuropathy (principal) | CPT/HCPCS: 83036 ==

== ENCOUNTER 2023-07-23 15:01 | Outpatient (AMB) | payer OTHER, MEDICAID, SELFPAY ==
--- NOTE | 2023-07-23 15:05 | A.OFFVIS_ITS ---
Intake Intake Visit Reasons: DM/CONFIRMED Airdrop Systems Technician Required: No Accompanied by: Self / Same As Patient Allergies almond Allergy (Severe, Verified 05/29/23 14:48) THROAT CLOSES UP divalproex sodium [From DEPAKOTE] Allergy (Unknown, Verified 05/29/23 14:48) HIVES HPI Comprehensive Diabetes Asmnt Most Recent Diabetes Results: No Data to Display [facility] Medical History Mass of buttock History of anal dysplasia Sleep apnea Vitamin D deficiency 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 Diabetic nephropathy associated with type 1 diabetes mellitus Diabetic polyneuropathy associated with type 1 diabetes mellitus Diabetes type 1, uncontrolled AIN grade II Hyperlipidemia Hypertension Diabetes mellitus Surgical History History of excision of mass (~02/11/23) History of excision of lesion History of colonoscopy (~2013) Family History Father History of hypertension Mother History of diabetes mellitus History of cardiovascular disorder History of hypertension Son History of muscular dystrophy Maternal Uncle History of prostate cancer Social History Household Members: Spouse Alcohol intake: current Alcohol intake frequency: holidays/special occasions only Patient Tobacco Use Status: Never used Tobacco e-Cigarette/Vaping Use: Currently Using Substance Use Type: Former Substance User and Marijuana Assessment & Plan Assessment & Plan (1) Diabetic polyneuropathy associated with type 1 diabetes mellitus: Code(s): E10.42 - Type 1 diabetes mellitus with diabetic polyneuropathy Plan: Patient presents for pump training for Omnipod 5 with Dexcom G 6 The following topics were reviewed today: - using activity feature with Omnipod 5 - How to interpret data - benefits of using auto mode - Inserting infusion set or Pod site rotation Average glucose for the past 2 weeks with 152 mg/dL Patient above target 30% Patient at target 65% Patient below target 5% patient has increase automode 83% from 52% at prior visit. Reports he still uses temp basal when he knows he is going to eat lot of high carbohydrate foods. He also will use temp basal when he feels his glucose levels are going too low Patient continues to work towards bolusing before meals ? Dexcom account information: User Name: [email or web address] Password: [email or web address]! Setting verified by [facility], no changes made at today's visit Basal rate(s) (units/hour) : 12 AM to 12 AM 0.65 units / hr 2 PM? to 12 AM ? 0.95 units / hr? Bolus setting Insulin Carbohydrate Ratio (s) 12 AM? to? 11 AM? 1:15.5 11 AM to 3 PM 1:18 New 3 PM to 12 AM 1:15.5 Correction Factor / Sensitivity Factor 12 AM-5:30 AM 1:70 5:30 AM to 12 AM 1:50 Active Insulin Time:?New 3 hours Target(s): 12 AM to 6 AM 120 mg/dL 6 AM to 3 PM? 110 mg/dL 3 PM to 12 AM 110 mg/dL Reverse correction: On Patient Instructions: Patient will follow-up with welding machine operator thermit in 4 months Coding Level of Care Code Est Pt Level 1 (99871) Diagnoses Diabetic polyneuropathy associated with type 1 diabetes mellitus E10.42
== END 2023-07-23 15:28 | disposition home or self-care (01) ==
PROVIDERS: PCP Internal Medicine; Visit Provider Registered Nurse Diabetes Educator
DX: E10.42 Type 1 diabetes mellitus with diabetic polyneuropathy (principal)

== ENCOUNTER → 2023-07-23 15:01 | Outpatient (BNVA) | payer OTHER, MEDICAID, SELFPAY | PROVIDERS: PCP Internal Medicine; Visit Provider Registered Nurse Diabetes Educator | DX: Z46.81 Encounter for fitting and adjustment of insulin pump (principal); E10.42 Type 1 diabetes mellitus with diabetic polyneuropathy | CPT/HCPCS: 99211 ==

== ENCOUNTER 2023-09-14 09:08 | Outpatient (REF) | payer OTHER, MEDICAID, SELFPAY ==
[2023-09-14 10:13] LABS: Creatinine Urine 61.05 mg/dL; Microalbum/Creatinine Ratio Ur 173.6 ug/mg cr (<30)
== END 2023-09-14 09:09 | disposition home or self-care (01) ==
LOC: HO.LAB 09:08
PROVIDERS: PCP Internal Medicine; Visit Provider Internal Medicine Endocrinology, Diabetes & Metabolism
DX: E10.65 Type 1 diabetes mellitus with hyperglycemia (principal)
CPT/HCPCS: 82043; 82570

== ENCOUNTER 2023-10-09 14:24 | Outpatient (AMB) | payer OTHER, MEDICAID, SELFPAY ==
--- NOTE | 2023-10-09 14:33 | A.OFFVIS_ITS ---
Vital Signs 10/09/23 14:38 Height 5 ft 5 in Weight 151 lb 10.848 oz BMI 25.2 BP 132/56 L Blood Pressure Location Rt brachial Position Sitting Pulse 72 Pulse Source Pulse Oximeter Intake Visit Reasons: DM with pump Intake Note: Patient presents today to follow up on D1MT. Patient receives DME supplies through: [employer] Patient receives pump supplies through: [facility] Last Diabetic Eye exam:has an upcoming appt in November Last Podiatry Visit: Does not see a Director [employer] Random Glucose: 197 mg/dl HgA1c: 7.4% Lead Burner Helper Required: No Accompanied by: Self / Same As Patient Allergies almond Allergy (Severe, Verified 10/09/23 14:39) THROAT CLOSES UP divalproex sodium [From DEPAKOTE] Allergy (Unknown, Verified 10/09/23 14:39) HIVES Medication List - Last Reconciled 10/09/23 by Peña Garcia MD blood sugar diagnostic (FreeStyle Lite Strips) DIRECTED TO TEST BLOOD SUGAR FOUR TIMES DAILY blood-glucose meter (FreeStyle Lite Meter kit) USE DIRECTED TO TEST BLOOD SUGAR FOUR TIMES DAILY. bupropion HCl XL 300 mg PO QAM buspirone 10 mg PO BID gabapentin 800 mg PO TID insulin lispro (Humalog U-100 Insulin) Up to 100 units daily via insulin pump subcut daily; via insulin pump 30 days insulin pump cart,auto,BT-cntr (Omnipod 5 G6 Intro Kit (Gen 5) subcutaneous cartridge with controller) As directed insulin pump cart,automated,BT (Omnipod 5 G6 Pods (Gen 5) subcutaneous cartridge) As directed change every 72 hrs insulin pump cart,cont inf,BT (Omnipod Dash Pods (Gen 4) subcutaneous cartridge) Replace pod every 48 hours insulin syringes (disposable) As directed injects 4 X/day lancets (FreeStyle Lancets) As directed tests 4X/day lisinopril 40 mg PO DAILY lorazepam 0.5 mg PO TID PRN mirtazapine 45 mg PO BEDTIME quetiapine 25 mg PO BEDTIME quetiapine 200 mg PO BEDTIME rosuvastatin 40 mg PO DAILY HPI Comments Details: Patient is 53-year-old male with DM type 1 diagnosed at 7 years of age who presents for management of diabetes. Past medical history: Diabetes type 1, bipolar disorder hypertension hyperlipidemia Micro and macrovascular complications: Retinopathy, nephropathy Diabetes medications: Omnipod pump 5 and Dexcom G 6 with Humalog insulin. Settings Basal rate(s) (units/hour) : 12 AM to 12 PM 0.60 units / hr 12 PM? to 12 AM ? 0.95 units / hr? Bolus setting Insulin Carbohydrate Ratio (s) 12 AM? to? 11 AM? 1:15.5 11 AM to 3 PM 1:18 New 3 PM to 12 AM 1:15.5 Correction Factor / Sensitivity Factor 12 AM-5:30 AM 1:70 5:30 AM to 12 AM 1:50 Active Insulin Time:?New 3 hours Target(s): 12 AM to 6 AM 120 mg/dL 6 AM to 3 PM? 110 mg/dL 3 PM to 12 AM 110 mg/dL Total daily dose of insulin is 27.3 with 58% basal and 42% bolus. Auto mode use 93% of time with manual mode 7%. Total carbs 142.9 CGM: average blood glucose for the last 2 weeks is 157 . standard deviations 60. GM I 7.1 1 % blood glucose very low less than 54. 3% low less than 70. 58% in target range of 71-180. The rest high. C GM is active 100%. Pattern shows hypoglycemia occurring after breakfas tand to a lesser extent after lunch and dinner Symptoms reported: + Tingling in lower extremities Hypoglycemia: after breakfast Treats with juice Hyperglycemia: denies urinary frequency, + nocturia, polydypsia States he is not eating as much as lost 10 lb. 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 Ophthalmology evaluation: last saw last yr - has appt 11/2023 Laboratory Tests 12/31/20 12/31/20 12/31/20 08:30 08:30 08:30 Creatinine 1.02 Estimated GFR > 60 Hgb A1c (Clinic) Triglycerides 31 Cholesterol 196 LDL Cholesterol Direct 102 H LDL Cholesterol, Calc 112 HDL Cholesterol 78 Vitamin B12 682 TSH 0.78 01/03/21 15:06 Creatinine Estimated GFR Hgb A1c (Clinic) 7.3 H Triglycerides Cholesterol LDL Cholesterol Direct LDL Cholesterol, Calc HDL Cholesterol Vitamin B12 TSH [facility] Medical History Mass of buttock History of anal dysplasia Sleep apnea Vitamin D deficiency 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 Diabetic nephropathy associated with type 1 diabetes mellitus Diabetic polyneuropathy associated with type 1 diabetes mellitus Diabetes type 1, uncontrolled AIN grade II Hyperlipidemia Hypertension Diabetes mellitus Surgical History History of excision of mass (~02/11/23) History of excision of lesion History of colonoscopy (~2013) Family History Father History of hypertension Mother History of diabetes mellitus History of cardiovascular disorder History of hypertension Son History of muscular dystrophy Maternal Uncle History of prostate cancer Social History Household Members: Spouse Alcohol intake: current Alcohol intake frequency: holidays/special occasions only Patient Tobacco Use Status: Never used Tobacco e-Cigarette/Vaping Use: Currently Using Substance Use Type: Former Substance User and Marijuana Physical Exam Vital Signs: Last Vital Signs Pulse 72 10/09/23 14:38 BP 132/56 L 10/09/23 14:38 BMI result Body Mass Index 25.2 Absence of Cushingoid features. Absence of acromegalic features. Neck exam reveals nl size thyroid about 15 gms. No thyroid nodules palpable. No carotid bruits present. Lungs CTA. Heart S1 S2, Reg R/R. No M/R/ G. Skin exam reveals absence of vitiligo or acanthosis nigricans. Abdominal exam reveals Soft NT/ND with NA BS. No organomegaly present. Extrem Other: Visual exam of foot performed. No ulcerations or open lesions. No onchomycosis, no callouses.Pulses 2 + distally. Sensation intact to monofilament exam. Vibratory sensation sensed 10 seconds in right, 10 seconds in left with 128 Hz tuning fork Results AMB Hemoglobin A1c AMB Hemoglobin A1c 7.4 % Last Edit by ATIF Carrasco on 10/09/23 15:03 Results Reviewed Results Reviewed: Laboratory Last Values Glucose (Clinic) 197 mg/dL (60-115) H 10/09/23 14:46 Assessment & Plan Assessment & Plan (1) Diabetes type 1, uncontrolled: Code(s): E10.65 - Type 1 diabetes mellitus with hyperglycemia Category: Medical Qualifiers: Glycemic state: with hyperglycemia Qualified Code(s): E10.65 - Type 1 diabetes mellitus with hyperglycemia Plan: This is a 53-year-old male with history of type 1 diabetes being treated with the Omnipod 5 pump with Dexcom G6 with good glycemic control and known microvascular complications namely neuropathy. But significant hypoglycemia early afternoon The plan is to i loosening insulin: Carbohydrate at 00:00 to 01:17. He can make that adjustment we follows up with the automatic machines supervisor if necessary. . Microalbuminuria has worsened and will recheck in 3 months' time. If microalbumin remains persistently elevated, could consider adding hydrochlorothiazide if bp remains elevated . Another alternative would be to add Karendia Orders: Orders Microalbumin, Random (w Creat) 3 Months E10.65 - Type 1 diabetes mellitus with hyperglycemia AMB Hemoglobin A1c Today E10.65 - Type 1 diabetes mellitus with hyperglycemia Coding Level of Care Code Est Pt Level 4 (01859) Diagnoses Uncontrolled type 1 diabetes mellitus with hyperglycemia E10.65 Glycemic state: with hyperglycemia
[2023-10-09 14:38] VITALS: BP 132/56; PULSE 72; BMI 25.2
[2023-10-09 14:50] LABS: Glucose, Whole Blood 197 mg/dL (60-115)
== END 2023-10-09 15:17 | disposition home or self-care (01) ==
PROVIDERS: PCP Internal Medicine; Visit Provider Internal Medicine Endocrinology, Diabetes & Metabolism
DX: E10.65 Type 1 diabetes mellitus with hyperglycemia (principal)
CPT/HCPCS: 99214

== ENCOUNTER → 2023-10-09 14:24 | Outpatient (BNVA) | payer OTHER, MEDICAID, SELFPAY | PROVIDERS: PCP Internal Medicine; Visit Provider Internal Medicine Endocrinology, Diabetes & Metabolism | DX: E10.65 Type 1 diabetes mellitus with hyperglycemia (principal); Z96.41 Presence of insulin pump (external) (internal) | CPT/HCPCS: 82947; 83036 ==

== ENCOUNTER 2023-10-15 12:31 | Outpatient (REF) | payer OTHER, MEDICAID, SELFPAY ==
--- NOTE | ~2023-10-15 | XR_ITS ---
EXAMINATION: XR SHOULDER, RIGHT CLINICAL INFORMATION: Right shoulder pain. COMPARISON: None available. TECHNIQUE: 5 views of the right shoulder. FINDINGS: Moderate degenerative changes in the acromioclavicular joint with joint space narrowing and hypertrophic change. Glenohumeral alignment preserved. Tiny calcifications in the soft tissues along the superolateral aspect of the humeral head suggestive of rotator cuff pathology. XR/XR shoulder RT min 2V IMPRESSION: 1. Moderate degenerative changes in the acromioclavicular joint. 2. Tiny calcifications in the soft tissues along the superolateral aspect of the humeral head suggestive of rotator cuff pathology.
== END 2023-10-15 12:32 | disposition home or self-care (01) ==
LOC: HO.XRAY 12:31
PROVIDERS: PCP Internal Medicine; Visit Provider Internal Medicine
DX: M25.511 Pain in right shoulder (principal)
CPT/HCPCS: 73030

== ENCOUNTER 2023-11-05 14:28 | Outpatient (AMB) | payer OTHER, MEDICAID, SELFPAY ==
[2023-11-05 14:45] VITALS: BMI 25.1
--- NOTE | 2023-11-05 14:45 | A.OFFVIS_ITS ---
Vital Signs 11/05/23 14:45 Height 5 ft 5 in Weight 151 lb BMI 25.1 Intake Visit Reasons: Acute pain of the right shoulder. Intake Note: Vasiliy is a 53 year old 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 male who presents as a new patient with Right shoulder pain and weakness. The patient states that his symptoms have gotten worse over the last year in spite of continued non operative treatments. 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 He has done physical therapy which aggravated his pain. The patient has failed the last 6 weeks of conservative treatment. He has tried Tylenol and anti- inflammatory medicines which gave him minimal relief. The patient states that he has weakness when lifting his right hand above shoulder height. Allergies almond Allergy (Severe, Verified 11/05/23 14:59) THROAT CLOSES UP divalproex sodium [From DEPAKOTE] Allergy (Unknown, Verified 11/05/23 14:59) [facility] Medical History Mass of buttock History of anal dysplasia Sleep apnea Vitamin D deficiency 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 Diabetic nephropathy associated with type 1 diabetes mellitus Diabetic polyneuropathy associated with type 1 diabetes mellitus Diabetes type 1, uncontrolled AIN grade II Hyperlipidemia Hypertension Diabetes mellitus Surgical History History of excision of mass (~02/11/23) History of excision of lesion History of colonoscopy (~2013) Family History Father History of hypertension Mother History of diabetes mellitus History of cardiovascular disorder History of hypertension Son History of muscular dystrophy Maternal Uncle History of prostate cancer Social History Household Members: Spouse Alcohol intake: current Alcohol intake frequency: holidays/special occasions only Patient Tobacco Use Status: Never used Tobacco e-Cigarette/Vaping Use: Currently Using Substance Use Type: Former Substance User and Marijuana Current occupational status: employed 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, 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 Physical Exam Vital Signs: BMI result Body Mass Index 25.1 Const Other: Well-nourished well-developed very friendly male awake alert and oriented x3 in no acute distress Extrem Other: Bilateral upper extremity examination shows good capillary refill, no skin lesions noted, normal sensation light touch Right shoulder examination shows decreased range of motion when compared to his left shoulder, 4+ out of 5 strength with supraspinatus testing, positive impingement signs, tenderness over his acromioclavicular joint, no instability Results Reviewed Results Reviewed: X-rays of the patient's right shoulder show severe acromioclavicular joint narrowing, a type 2 acromion, no acute bony abnormalities Assessment & Plan Assessment & Plan (1) Right shoulder pain: Code(s): M25.511 - Pain in right shoulder Category: Medical Plan Mr. Pierce presents with progressively worsening right shoulder pain and weakness due to impingement syndrome and possible full-thickness rotator cuff tearing. Thus, I will send the patient for an MRI of his right shoulder for further evaluation. If he does have a full-thickness tear I will recommend surgical repair to optimize his future functional level. The patient will continue with his range of motion exercises in the meantime. Feel free to call me at any time should questions regarding his orthopedic management arise. Thank you very much for asking me to see this very friendly gentleman. I spent 20 minutes in reviewing the patient's records and imaging studies, seeing the patient and documenting in the medical record. Orders: Orders MR shoulder RT wo con Today M25.511 - Pain in right shoulder Coding Level of Care Code New Pt Level 3 (58080) Diagnoses Right shoulder pain M25.511
== END 2023-11-05 15:23 | disposition home or self-care (01) ==
PROVIDERS: PCP Internal Medicine; Visit Provider Orthopaedic Surgery
DX: M25.511 Pain in right shoulder (principal)
CPT/HCPCS: 99203

== ENCOUNTER → 2023-11-05 14:28 | Outpatient (BNVA) | payer OTHER, MEDICAID, SELFPAY | PROVIDERS: PCP Internal Medicine; Visit Provider Orthopaedic Surgery ==

== ENCOUNTER 2023-11-19 12:57 | Outpatient (REF) | payer OTHER, MEDICAID, SELFPAY ==
[2023-11-19 14:32] LABS: Creatinine Urine 20.91 mg/dL
== END 2023-11-19 12:58 | disposition home or self-care (01) ==
LOC: HO.LAB 12:57
PROVIDERS: PCP Internal Medicine; Visit Provider Internal Medicine Endocrinology, Diabetes & Metabolism
DX: E10.65 Type 1 diabetes mellitus with hyperglycemia (principal)
CPT/HCPCS: 82043; 82570

== ENCOUNTER 2023-11-21 15:14 | Outpatient (AMB) | payer OTHER, MEDICAID, SELFPAY ==
--- NOTE | 2023-11-21 15:44 | MHC.AMDMED ---
Intake Intake Visit Reasons: DM/CONFIRMED Provisioning Analyst Required: No Accompanied by: Self / Same As Patient Allergies almond Allergy (Severe, Verified 11/05/23 14:59) THROAT CLOSES UP divalproex sodium [From DEPAKOTE] Allergy (Unknown, Verified 11/05/23 14:59) HIVES HPI Comprehensive Diabetes Asmnt Most Recent Diabetes Results: Microalb/Creat Ratio 86.0 ug/mg cr (<30) H 11/19/23 PFSH Medical History Mass of buttock History of anal dysplasia Sleep apnea Vitamin D deficiency 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 Diabetic nephropathy associated with type 1 diabetes mellitus Diabetic polyneuropathy associated with type 1 diabetes mellitus Diabetes type 1, uncontrolled AIN grade II Hyperlipidemia Hypertension Diabetes mellitus Surgical History History of excision of mass (~02/11/23) History of excision of lesion History of colonoscopy (~2013) Family History Father History of hypertension Mother History of diabetes mellitus History of cardiovascular disorder History of hypertension Son History of muscular dystrophy Maternal Uncle History of prostate cancer Social History Household Members: Spouse Alcohol intake: current Alcohol intake frequency: holidays/special occasions only Patient Tobacco Use Status: Never used Tobacco e-Cigarette/Vaping Use: Currently Using Substance Use Type: Former Substance User and Marijuana Current occupational status: employed 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 Dexcom account information: User Name: Password: [email or web address]! 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 Reviewed with patient how to use activity mode. Showed patient how to turn it on and set time. Reinforced the importance of reducing the amount of hypoglycemia. Changed insulin to carb ratio after 3PM, see below Setting verified by CDCES, see changes made at today's visit Basal rate(s) (units/hour) : 12 AM to 12 AM 0.65 units / hr 2 PM? to 12 AM ? 0.95 units / hr? Bolus setting Insulin Carbohydrate Ratio (s) 12 AM? to? 11 AM? 1:15.5 11 AM to 3 PM 1:18 3 PM to 12 AM 1:15.5 New 3 PM to 12 AM 1:16 Correction Factor / Sensitivity Factor 12 AM-5:30 AM 1:70 5:30 AM to 12 AM 1:50 Active Insulin Time:?New 3 hours Patient Instructions: Patient will follow-up in 2 weeks Coding Level of Care Code Est Pt Level 1 (39542) Diagnoses 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 E10.649
== END 2023-11-21 15:47 | disposition home or self-care (01) ==
PROVIDERS: PCP Internal Medicine; Visit Provider Registered Nurse Diabetes Educator
DX: E10.649 Type 1 diabetes mellitus with hypoglycemia without coma (principal)

== ENCOUNTER → 2023-11-21 15:14 | Outpatient (BNVA) | payer OTHER, MEDICAID, SELFPAY | PROVIDERS: PCP Internal Medicine; Visit Provider Registered Nurse Diabetes Educator | DX: E10.649 Type 1 diabetes mellitus with hypoglycemia without coma (principal); Z46.81 Encounter for fitting and adjustment of insulin pump; Z79.4 Long term (current) use of insulin | CPT/HCPCS: 99211 ==

== ENCOUNTER 2023-11-30 07:17 | Outpatient (REF) | payer OTHER, MEDICAID, SELFPAY ==
[2023-11-30 08:17] LABS: Anion Gap 12 (12-20); Blood Urea Nitrogen 13 mg/dL (9-16); Calcium 9.3 mg/dL (8.4-10.2); Carbon Dioxide 27 mmol/L (22-29); Chloride 108 mmol/L (96-108); Cholesterol 141 mg/dL (<200); Estimated Glomerular Filt Rate > 60; Glucose Random 108 mg/dL (60-115); HDL Cholesterol 71 mg/dL (>40); LDL Cholesterol Calculated 65 mg/dL (<100); Potassium 4.3 mmol/L (3.3-5.1); Sodium 143 mmol/L (135-145); Triglycerides 28 mg/dL (<150)
== END 2023-11-30 07:18 | disposition home or self-care (01) ==
LOC: HO.LAB 07:17
PROVIDERS: Visit Provider Internal Medicine Endocrinology, Diabetes & Metabolism
DX: E10.65 Type 1 diabetes mellitus with hyperglycemia (principal)
CPT/HCPCS: 36415; 80048; 80061

== ENCOUNTER 2023-12-05 15:08 | Outpatient (AMB) | payer OTHER, MEDICAID, SELFPAY ==
--- NOTE | 2023-12-05 15:30 | A.OFFVIS_ITS ---
Intake Intake Visit Reasons: DM/CONFIRMED Quality Assurance/R&D Lab Technician Required: No Accompanied by: Self / Same As Patient Allergies almond Allergy (Severe, Verified 11/05/23 14:59) THROAT CLOSES UP divalproex sodium [From DEPAKOTE] Allergy (Unknown, Verified 11/05/23 14:59) HIVES HPI Comprehensive Diabetes Asmnt Most Recent Diabetes Results: Microalb/Creat Ratio 86.0 ug/mg cr (<30) H 11/19/23 Cholesterol 141 mg/dL (<200) 11/30/23 HDL Cholesterol 71 mg/dL (>40) 11/30/23 Triglycerides 28 mg/dL (<150) 11/30/23 Creatinine 0.84 mg/dL (0.5-1.4) 11/30/23 Blood Urea Nitrogen 13 mg/dL (9-16) 11/30/23 Sodium 143 mmol/L (135-145) 11/30/23 Potassium 4.3 mmol/L (3.3-5.1) 11/30/23 Chloride 108 mmol/L (96-108) 11/30/23 Carbon Dioxide 27 mmol/L (22-29) 11/30/23 Calcium 9.3 mg/dL (8.4-10.2) 11/30/23 [facility] Medical History Mass of buttock History of anal dysplasia Sleep apnea Vitamin D deficiency 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 Diabetic nephropathy associated with type 1 diabetes mellitus Diabetic polyneuropathy associated with type 1 diabetes mellitus Diabetes type 1, uncontrolled AIN grade II Hyperlipidemia Hypertension Diabetes mellitus Surgical History History of excision of mass (~02/11/23) History of excision of lesion History of colonoscopy (~2013) Family History Father History of hypertension Mother History of diabetes mellitus History of cardiovascular disorder History of hypertension Son History of muscular dystrophy Maternal Uncle History of prostate cancer Social History Household Members: Spouse Alcohol intake: current Alcohol intake frequency: holidays/special occasions only Patient Tobacco Use Status: Never used Tobacco e-Cigarette/Vaping Use: Currently Using Substance Use Type: Former Substance User and Marijuana Current occupational status: employed 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, 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 Assessment & Plan Assessment & Plan (1) 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: Code(s): E10.649 - Type 1 diabetes mellitus with hypoglycemia without coma Plan: Patient presents for pump training for Omnipod 5 with Dexcom G 6 The following topics were reviewed today: - using activity feature with Omnipod 5 - using extended bolus for snacking in the evening - benefits of using auto mode - Inserting infusion set or Pod site rotation Average glucose for the past 2 weeks with 143 mg/dL Patient above target 21% Patient at target 74% Patient below target 5% Automode 80% Manual 20% ? Dexcom account information: User Name: [email or web address] Password: [email or web address]! Patient's of hypoglycemia has improved from 11% to 5%, patient is still having hypoglycemia in afternoon and early evening. This could be due to physicality of his job and patient is concerned about his kidney function so reports sometimes he over corrects or puts temp basal on when he thinks glucose is too high Setting verified by CDCES, see changes made at today's visit Basal rate(s) (units/hour) : 12 AM to 12 AM 0.65 units / hr 2 PM? to 12 AM ? 0.95 units / hr? Bolus setting Insulin Carbohydrate Ratio (s) 12 AM? to? 11 AM? 1:15.5 11 AM to 3 PM 1:18 3 PM to 12 AM 1:16 Correction Factor / Sensitivity Factor 12 AM-5:30 AM 1:70 5:30 AM to 12 AM 1:50 Target: 120 mg/dL Target threshold 130 mg/dL Due to patient's hypoglycemic events between 14:00 to 19:00 increased target goal to 130 mg/dL Active Insulin Time:?3 hours Patient Instructions: Patient will follow-up with staff educator in 1 month Coding Level of Care Code Est Pt Level 1 (72105) Diagnoses 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 E10.649
== END 2023-12-05 15:37 | disposition home or self-care (01) ==
PROVIDERS: PCP Internal Medicine; Visit Provider Registered Nurse Diabetes Educator
DX: E10.649 Type 1 diabetes mellitus with hypoglycemia without coma (principal)

== ENCOUNTER → 2023-12-05 15:08 | Outpatient (BNVA) | payer OTHER, MEDICAID, SELFPAY | PROVIDERS: PCP Internal Medicine; Visit Provider Registered Nurse Diabetes Educator | DX: Z46.81 Encounter for fitting and adjustment of insulin pump (principal); E10.649 Type 1 diabetes mellitus with hypoglycemia without coma | CPT/HCPCS: 99211 ==

== ENCOUNTER 2023-12-23 14:32 | Outpatient (AMB) | payer OTHER, MEDICAID, SELFPAY ==
[2023-12-23 14:34] VITALS: BMI 25.1
--- NOTE | 2023-12-23 14:34 | A.OFFVIS_ITS ---
Vital Signs 12/23/23 14:34 Height 5 ft 5 in Weight 151 lb BMI 25.1 Intake Visit Reasons: OV-Acute pain of the right shoulder-6wk F/U Intake Note: Vasiliy is a 53 year old right hand dominant male who presents today for a follow up of right shoulder pain. Patient reports that he is having pain in both of his shoulders, right shoulder worse than the left. 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 Hx of DM. Allergies almond Allergy (Severe, Verified 11/05/23 14:59) THROAT CLOSES UP divalproex sodium [From DEPAKOTE] Allergy (Unknown, Verified 11/05/23 14:59) HIVES HPI HPI OV-Acute pain of the right shoulder-6wk F/U: Details: This is a 53 yo M with right shoulder pain for ~6 months. 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 He is diabetic and his sugard have been running high ( 300s) recently. He describes right shoulder pain at night and with overhead work/reaching. [facility] Medical History Mass of buttock History of anal dysplasia Sleep apnea Vitamin D deficiency 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 Diabetic nephropathy associated with type 1 diabetes mellitus Diabetic polyneuropathy associated with type 1 diabetes mellitus Diabetes type 1, uncontrolled AIN grade II Hyperlipidemia Hypertension Diabetes mellitus Surgical History History of excision of mass (~02/11/23) History of excision of lesion History of colonoscopy (~2013) Family History Father History of hypertension Mother History of diabetes mellitus History of cardiovascular disorder History of hypertension Son History of muscular dystrophy Maternal Uncle History of prostate cancer Social History Household Members: Spouse Alcohol intake: current Alcohol intake frequency: holidays/special occasions only Patient Tobacco Use Status: Never used Tobacco e-Cigarette/Vaping Use: Currently Using Substance Use Type: Former Substance User and Marijuana Current occupational status: employed 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, 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 Physical Exam Vital Signs: BMI result Body Mass Index 25.1 Const General: cooperative, healthy appearing, no acute distress and well groomed Orientation/consciousness: oriented to person and oriented to place HEENT Head: Yes normal to inspection, Yes normocephalic and Yes atraumatic Eyes General: appearance normal, both eyes and all related structures Alignment and Position: alignment normal Conjunctivae: conjunctivae normal EOM: EOMs intact bilaterally Neck Neck: Yes normal visual inspection and Yes trachea midline Resp Other: No rerpiratory distress Effort & Inspection: normal respiratory effort and able to speak in complete sentences Cardio Other: Palpable radial pulse with no appreciable rythmic abnormalities GI Other: No abdominal distension Back/Spine/Pelvis Cervical Spine: normal cervical lordosis and cervical ROM normal Skin General skin exam: no rashes or lesions noted Neuro General: oriented to person, oriented to place and gait normal Extrem Other: Shoulder: 30/90/`30/L5 +H/N Neg lift off/EC Results Reviewed Results Reviewed: I personally reviewed relevant radiographs. Nl shoulder radiographs Assessment & Plan Assessment & Plan (1) Right shoulder pain: Code(s): M25.511 - Pain in right shoulder Category: Medical Plan: This is a 53 yo RHD powder coat painter with atraumatic right shoulder pain. He has not done PT. Injections are currently contraindicated given high sugars. He will see me back after PT. Orders: Orders PT Evaluation and Treatment 12/23/23 M25.511 - Pain in right shoulder Coding Level of Care Code Est Pt Level 4 (10539) Diagnoses Right shoulder pain M25.511
== END 2023-12-23 14:52 | disposition home or self-care (01) ==
PROVIDERS: PCP Internal Medicine; Visit Provider Orthopaedic Surgery
DX: M25.511 Pain in right shoulder (principal)
CPT/HCPCS: 99213

== ENCOUNTER → 2023-12-23 14:32 | Outpatient (BNVA) | payer OTHER, MEDICAID, SELFPAY | PROVIDERS: PCP Internal Medicine; Visit Provider Orthopaedic Surgery ==

== ENCOUNTER 2024-01-01 14:41 | Outpatient (AMB) | payer OTHER, MEDICAID, SELFPAY ==
--- NOTE | 2024-01-01 15:46 | MHC.OFFVIS ---
Vital Signs 01/01/24 15:48 Height 5 ft 5 in Weight 152 lb BMI 25.3 BP 157/72 H Blood Pressure Location Lt brachial Position Sitting Pulse 61 Intake Visit Reasons: History of anal dysplasia, 1 year Intake Note: This patient presents for a yearly follow-up for History of anal dysplasia. Patient c/o: no concerns. Senior Construction Manager Required: No Accompanied by: Self / Same As Patient Allergies almond Allergy (Severe, Verified 01/01/24 15:47) THROAT CLOSES UP divalproex sodium [From DEPAKOTE] Allergy (Unknown, Verified 01/01/24 15:47) HIVES Medication List - Last Reconciled 01/01/24 by Aden Moore MD blood sugar diagnostic (FreeStyle Lite Strips) DIRECTED TO TEST BLOOD SUGAR FOUR TIMES DAILY blood-glucose meter (FreeStyle Lite Meter kit) USE DIRECTED TO TEST BLOOD SUGAR FOUR TIMES DAILY. gabapentin 800 mg PO TID Humalog U-100 Insulin (insulin lispro) 100 units subcut DAILY NS insulin pump cart,auto,BT-cntr (Omnipod 5 G6 Intro Kit (Gen 5) subcutaneous cartridge with controller) As directed insulin pump cart,automated,BT (Omnipod 5 G6 Pods (Gen 5) subcutaneous cartridge) As directed change every 72 hrs insulin pump cart,cont inf,BT (Omnipod Dash Pods (Gen 4) subcutaneous cartridge) Replace pod every 48 hours insulin syringes (disposable) As directed injects 4 X/day lancets (FreeStyle Lancets) As directed tests 4X/day lisinopril 40 mg PO DAILY lorazepam 0.5 mg PO TID PRN quetiapine 25 mg PO BEDTIME quetiapine 200 mg PO BEDTIME rosuvastatin 40 mg PO DAILY HPI HPI History of anal dysplasia, 1 year: Details: 53-year-old male here for follow-up for a history of AIN 2. He had an anal polyp removed in 2019. This had shown a into in the specimen He currently denies any bleeding. Denies any pain in his anus or rectum. He denies any GI complaints. PENDING SALE TO [facility] Medical History Mass of buttock History of anal dysplasia Sleep apnea Vitamin D deficiency 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 Diabetic nephropathy associated with type 1 diabetes mellitus Diabetic polyneuropathy associated with type 1 diabetes mellitus Diabetes type 1, uncontrolled AIN grade II Hyperlipidemia Hypertension Diabetes mellitus Surgical History History of excision of mass (~02/11/23) History of excision of lesion History of colonoscopy (~2013) Family History Father History of hypertension Mother History of diabetes mellitus History of cardiovascular disorder History of hypertension Son History of muscular dystrophy Maternal Uncle History of prostate cancer Social History Household Members: Spouse Alcohol intake: current Alcohol intake frequency: holidays/special occasions only Patient Tobacco Use Status: Never used Tobacco e-Cigarette/Vaping Use: Currently Using Substance Use Type: Former Substance User and Marijuana Current occupational status: employed 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, 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 Review of Systems Const Denies chills and Denies fever(s) Card Denies chest pain, Denies dyspnea and Denies dyspnea on exertion Resp Denies cough, Denies dyspnea and Denies dyspnea on exertion GI Denies hematochezia and Denies change in bowel habits Denies hematuria and Denies difficulty urinating Musc Denies back pain and Denies limited range of motion Neuro Denies focal weakness and Denies convulsions Psych Denies depression and Denies mood swings Physical Exam Vital Signs: Last Vital Signs Pulse 61 01/01/24 15:48 BP 157/72 H 01/01/24 15:48 BMI result Body Mass Index 25.3 Const General: comfortable and no acute distress Orientation/consciousness: patient oriented x3 Neck Neck: Yes no lymphadenopathy Resp Auscultation: clear to auscultation bilaterally Cardio Rhythm: regular rhythm GI Other: Rectal exam shows no perianal lesions Palpation (GI): Soft to palpation, nontender and no guarding Neuro General: patient oriented x3 Office Procedures Anoscopy He was in yolanda-knife position. The anoscope was gently inserted. A full examination of the anal canal was done. He had small hemorrhoidal tissue internal. There were no lesions. No obvious abnormality of the mucosa or the anoderm. I did not see any bleeding. There was no fissure or ulceration There was no induration on digital exam. [id number] Assessment & Plan Assessment & Plan (1) History of anal dysplasia: Code(s): Z87.19 - Personal history of other diseases of the digestive system Category: Medical Plan: Current exam and anoscopy done does not reveal any abnormality in the anal canal all the perirectal area. There were no lesions, any ulceration or fissure. There was no bleeding He denies any complaints with regards to his anus. We will repeat his colonoscopy in about a year. I emphasized this to him and he says he understands. Coding Level of Care Code Est Pt Level 3 (02325) Diagnoses History of anal dysplasia Z87.19 CPT Codes Details - CPT: 45262-[id number] ([id number])
[2024-01-01 15:48] VITALS: BP 157/72; PULSE 61; BMI 25.3
== END 2024-01-01 16:11 | disposition home or self-care (01) ==
PROVIDERS: PCP Internal Medicine; Visit Provider Surgery
DX: Z87.19 Personal history of other diseases of the digestive system (principal)
CPT/HCPCS: 46600; 99213

== ENCOUNTER → 2024-01-01 14:41 | Outpatient (BNVA) | payer OTHER, MEDICAID, SELFPAY | PROVIDERS: PCP Internal Medicine; Visit Provider Surgery | DX: Z87.19 Personal history of other diseases of the digestive system (principal) | CPT/HCPCS: 46600 ==

== ENCOUNTER 2024-01-08 14:39 | Outpatient (AMB) | payer OTHER, MEDICAID, SELFPAY ==
--- NOTE | 2024-01-08 14:45 | A.OFFVIS_ITS ---
Vital Signs 01/08/24 14:50 Height 5 ft 5 in Weight 152 lb 1.903 oz BMI 25.3 BP 134/64 Blood Pressure Location Rt brachial Position Sitting Pulse 68 Pulse Source Pulse Oximeter Intake Visit Reasons: T1DM/CONFIRMED Intake Note: New Patient presents today to established treatment for Type 1 Diabetes Mellitus: Most recent Eye Exam: Has an appt on 01/09/2024 Most recent Podiatry Exam: Does not see a Lower School Spanish Teacher Most recent HbA1c: 7.0 %, 01/08/2024 Random Glucose- 85mg/dL, Today Greenkeeper Required: No Accompanied by: Self / Same As Patient Allergies almond Allergy (Severe, Verified 01/08/24 14:45) THROAT CLOSES UP divalproex sodium [From DEPAKOTE] Allergy (Unknown, Verified 01/08/24 14:45) HIVES HPI Comments Details: Patient is 53-year-old male with DM type 1 diagnosed at 7 years of age who presents for management of diabetes. He was last seen by Dr. Garcia 10/08 and by Brittani DIAZ earlier today. Past medical history: Diabetes type 1, bipolar disorder hypertension hyperlipidemia Micro and macrovascular complications: Retinopathy, nephropathy Diabetes medications: Omnipod pump 5 and Dexcom G 6 with Humalog insulin. He is entering an extensive amount of carbs in the evening. 24 recall shows not enough protein intake during the day and excess carbs in the cecy Dexcom average glucose: [162 ] Glucose Managment indicator [7.2 ] % TIme in range: [12] % very high (above 250) [20 ] % high ?(181-250) [ 62] % in range ?(70-180] [3 ] % low (69-55) [3 ] % ?very low (below 54) Basal rate(s) (units/hour) : 12 AM to 12 AM 0.65 units / hr 2 PM? to 12 AM ? 0.95 units / hr? Bolus setting Insulin Carbohydrate Ratio (s) 12 AM? to? 11 AM? 17 11 AM to 3 PM 1:18 3 PM to 12 AM 1:14 Correction Factor / Sensitivity Factor 12 AM-5:30 AM 1:70 5:30 AM to 12 AM 1:50 Target: 120 mg/dL Target threshold 120 mg/dL 2:00pm to 7 PM 130 mg/dL 7 PM to 12 AM 110 mg/dL Active Insulin Time:?3 hours Symptoms reported: + Tingling in lower extremities Hypoglycemia: rare. 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 - [employer] education: followed by [employer] Spanish Teacher: Ophthalmology evaluation: goes annually [facility] Medical History Mass of buttock History of anal dysplasia Sleep apnea Vitamin D deficiency 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 Diabetic nephropathy associated with type 1 diabetes mellitus Diabetic polyneuropathy associated with type 1 diabetes mellitus Diabetes type 1, uncontrolled AIN grade II Hyperlipidemia Hypertension Diabetes mellitus Surgical History History of excision of mass (~02/11/23) History of excision of lesion History of colonoscopy (~2013) Family History Father History of hypertension Mother History of diabetes mellitus History of cardiovascular disorder History of hypertension Son History of muscular dystrophy Maternal Uncle History of prostate cancer Social History Household Members: Spouse Alcohol intake: current Alcohol intake frequency: holidays/special occasions only Patient Tobacco Use Status: Never used Tobacco e-Cigarette/Vaping Use: Currently Using Substance Use Type: Former Substance User and Marijuana Current occupational status: employed 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 No ulcerations or open lesions. No onchomycosis, no callouses. Sensation intact to monofilament exam. Vibratory sensation is normal with 128 Hz tuning fork. Results AMB Hemoglobin A1c AMB Hemoglobin A1c 7.0 % Last Edit by ATIF Wade on 01/08/24 15:05 Results Reviewed Results Reviewed: Laboratory Last Values Glucose (Clinic) 85 mg/dL (60-115) 01/08/24 14:55 Hgb A1c (Clinic) 7.0 % (4.0-6.0) H 01/08/24 15:05 Laboratory Tests 11/17/22 10/09/23 11/30/23 10:25 14:49 07:25 Potassium 4.3 BUN 13 Creatinine 0.84 Estimated GFR > 60 Random Glucose 108 Hgb A1c (Clinic) 7.4 H Calcium 9.3 D Triglycerides 28 Cholesterol 141 LDL Cholesterol, Calc 65 HDL Cholesterol 71 TSH 1.53 Assessment & Plan Assessment & Plan (1) Diabetes type 1, uncontrolled: Code(s): E10.65 - Type 1 diabetes mellitus with hyperglycemia Category: Medical Qualifiers: Glycemic state: with hyperglycemia Qualified Code(s): E10.65 - Type 1 diabetes mellitus with hyperglycemia Plan: TYpe 1 with swings in glucose readings. He is entering fictious carbs in the evening. Caerb ratio adjustment to give additional insulin for carbs and he was asked to accurately enter carbs. He was also asked to increase protein intake during the day ad to reduce the amount of carbohydrates he is consuming in the evening. Patient teaching: The patient was counseled to achieve a target A1C of 7% (154 avg). Fasting blood sugars should be 90-130 in the morning and less than 180 two hours after meals. Reviewed the relationship between poor diabetic control and the developement of complications The patient was counseled to always carry a source of sugar and on the rule of 15's: Take 3 glucose tablets and repeat again in 15 minutes if blood sugar is not in normal range. Continue to repeat every 15 minutes until blood sugar is normal. Backup insulin plan, DKA prevention and high glucose protocol Orders: Orders AMB Hemoglobin A1c 01/08/24 E11.9 - Type 2 diabetes mellitus without complications Coding Level of Care Code Est Pt Level 4 (69737) Diagnoses Uncontrolled type 1 diabetes mellitus with hyperglycemia E10.65 Glycemic state: with hyperglycemia Time Spent (min) 30 Comment chart review, face to face, documentation
[2024-01-08 14:50] VITALS: BP 134/64; PULSE 68; BMI 25.3
[2024-01-08 14:59] LABS: Glucose, Whole Blood 85 mg/dL (60-115)
== END 2024-01-08 16:00 | disposition home or self-care (01) ==
PROVIDERS: PCP Internal Medicine; Visit Provider Nurse Practitioner Adult Health
DX: E10.65 Type 1 diabetes mellitus with hyperglycemia (principal)
CPT/HCPCS: 99214

== ENCOUNTER 2024-01-08 14:39 | Outpatient (AMB) | payer OTHER, MEDICAID, SELFPAY ==
--- NOTE | 2024-01-08 14:51 | MHC.AMDMED ---
Intake Intake Visit Reasons: 30 min/COMFIRMED Allergies almond Allergy (Severe, Verified 01/08/24 14:45) THROAT CLOSES UP divalproex sodium [From DEPAKOTE] Allergy (Unknown, Verified 01/08/24 14:45) HIVES HPI Comprehensive Diabetes Asmnt Most Recent Diabetes Results: Microalb/Creat Ratio 86.0 ug/mg cr (<30) H 11/19/23 Cholesterol 141 mg/dL (<200) 11/30/23 HDL Cholesterol 71 mg/dL (>40) 11/30/23 Triglycerides 28 mg/dL (<150) 11/30/23 Creatinine 0.84 mg/dL (0.5-1.4) 11/30/23 Blood Urea Nitrogen 13 mg/dL (9-16) 11/30/23 Sodium 143 mmol/L (135-145) 11/30/23 Potassium 4.3 mmol/L (3.3-5.1) 11/30/23 Chloride 108 mmol/L (96-108) 11/30/23 Carbon Dioxide 27 mmol/L (22-29) 11/30/23 Calcium 9.3 mg/dL (8.4-10.2) 11/30/23 AST 19 U/L (5-37) 11/17/22 ALT 17 U/L (0-40) 11/17/22 Total Protein 6.9 g/dL (6.5-8.0) 11/17/22 Albumin 4.4 g/dL (3.5-5.0) 11/17/22 [facility] Medical History Mass of buttock History of anal dysplasia Sleep apnea Vitamin D deficiency 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 Diabetic nephropathy associated with type 1 diabetes mellitus Diabetic polyneuropathy associated with type 1 diabetes mellitus Diabetes type 1, uncontrolled AIN grade II Hyperlipidemia Hypertension Diabetes mellitus Surgical History History of excision of mass (~02/11/23) History of excision of lesion History of colonoscopy (~2013) Family History Father History of hypertension Mother History of diabetes mellitus History of cardiovascular disorder History of hypertension Son History of muscular dystrophy Maternal Uncle History of prostate cancer Social History Household Members: Spouse Alcohol intake: current Alcohol intake frequency: holidays/special occasions only Patient Tobacco Use Status: Never used Tobacco e-Cigarette/Vaping Use: Currently Using Substance Use Type: Former Substance User and Marijuana Current occupational status: employed 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, 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 Assessment & Plan Assessment & Plan (1) 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: Code(s): E10.649 - Type 1 diabetes mellitus with hypoglycemia without coma Plan: Patient presents for pump training for Omnipod 5 with Dexcom G 6 The following topics were reviewed today: - using activity feature with Omnipod 5 - using extended bolus for snacking in the evening - benefits of using auto mode - Inserting infusion set or Pod site rotation Average glucose for the past 2 weeks with 162 mg/dL Patient above target 21% Patient at target 32% Patient below target 6% Automode 67% Manual 33% ? Dexcom account information: User Name: [email or web address] Password: [email or web address] Patient reports he sometimes adds extra carbohydrate when he is not eating to try and bring glucose levels down. Explained to patient this makes it difficult to make pump adjustments. Suggested to patient we increase insulin action time from 3 hours to 3-1/2 hours, this may slightly reduce boluses and corrections with the intention of lowering the risk of hypoglycemia Patient declined to change anything in the pump today. Reports he knows that his behavior causes many of his hypoglycemia events. Encourage patient not to enter phantom carbs. Patient has visit with CARTON FORMING MACHINE ADJUSTER today, he will have A1c drawn for that visit Setting verified by [facility], patient declined to make changes in insulin pump settings Basal rate(s) (units/hour) : 12 AM to 12 AM 0.65 units / hr 2 PM? to 12 AM ? 0.95 units / hr? Bolus setting Insulin Carbohydrate Ratio (s) 12 AM? to? 11 AM? 1:15.5 11 AM to 3 PM 1:18 3 PM to 12 AM 1:16 Correction Factor / Sensitivity Factor 12 AM-5:30 AM 1:70 5:30 AM to 12 AM 1:50 Target: 120 mg/dL Target threshold 120 mg/dL 2:00pm to 7 PM 130 mg/dL 7 PM to 12 AM 110 mg/dL Active Insulin Time:?3 hours Patient Instructions: Patient will follow-up with certified breastfeeding educator in 2 month Coding Level of Care Code Est Pt Level 1 (75652) Diagnoses 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 E10.649
== END 2024-01-08 15:59 | disposition home or self-care (01) ==
PROVIDERS: PCP Internal Medicine; Visit Provider Registered Nurse Diabetes Educator
DX: E10.649 Type 1 diabetes mellitus with hypoglycemia without coma (principal)

== ENCOUNTER → 2024-01-08 14:39 | Outpatient (BNVA) | payer OTHER, MEDICAID, SELFPAY | PROVIDERS: PCP Internal Medicine; Visit Provider Nurse Practitioner Adult Health | DX: Z46.81 Encounter for fitting and adjustment of insulin pump (principal); E10.649 Type 1 diabetes mellitus with hypoglycemia without coma; E10.65 Type 1 diabetes mellitus with hyperglycemia | CPT/HCPCS: 82947; 83036; 99211 ==

== ENCOUNTER 2024-01-29 13:33 | Outpatient (AMB) | payer OTHER, MEDICAID, SELFPAY ==
--- NOTE | 2024-01-29 13:34 | A.OFFVIS_ITS ---
Vital Signs 01/29/24 13:35 Height 5 ft 5 in Weight 156 lb 8.451 oz BMI 26.0 BP 122/62 Blood Pressure Location Rt brachial Position Sitting Pulse 70 Pulse Source Pulse Oximeter Intake Visit Reasons: T1DM/CONFIRMED Intake Note: Patient presents today for a follow-up on Type 1 Diabetes Mellitus: Last Diabetic Eye exam: 01/09/2024 Last Podiatry Exam: Does not see a Supervisor Money Room Most recent HbA1c: 7.0%, 01/08/2024 Random Glucose- 146mg/dL, Today Generator Rebuilder Required: No Accompanied by: Self / Same As Patient Allergies almond Allergy (Severe, Verified 01/29/24 13:35) THROAT CLOSES UP divalproex sodium [From DEPAKOTE] Allergy (Unknown, Verified 01/29/24 13:35) HIVES HPI Comments Details: Patient is 53-year-old male with DM type 1 diagnosed at 7 years of age who presents for management of diabetes. He was last seen by myself 3 weeks ago and by Brittani DIAZ earlier today. Past medical history: Diabetes type 1, bipolar disorder hypertension hyperlipidemia Micro and macrovascular complications: Retinopathy, nephropathy Diabetes medications: Omnipod pump 5 and Dexcom G 6 with Humalog insulin. At his last visit he was eating and entering in the pump an extensive amount of carbs in the evening. Prior 24 recall shows not enough protein intake during the day and excess carbs in the cecy. He is working on this. Has difficulty on the week end when he purchases two loaves of uzbek water bread. Dexcom G6 average glucose: [159 ] Glucose Managment indicator [7.1] % TIme in rof paange: [11] % very high (above 250) [16 ] % high ?(181-250) [ 69] % in range ?(70-180] [2 ] % low (69-55) [2 ] % ?very low (below 54) Basal rate(s) (units/hour) : 12 AM to 12 AM 0.60 units / hr 2 PM? to 12 AM ? 0.95 units / hr? Bolus setting Insulin Carbohydrate Ratio (s) 12 AM? to? 11 AM? 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 Accountant Helper - CDE education: followed by CDE Supervisor Money Room: Ophthalmology evaluation: goes annually last exam January 2024 no changes in retinopathy prior h/o laser x 3 PFSH Medical History Mass of buttock History of anal dysplasia Sleep apnea Vitamin D deficiency 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 Diabetic nephropathy associated with type 1 diabetes mellitus Diabetic polyneuropathy associated with type 1 diabetes mellitus Diabetes type 1, uncontrolled AIN grade II Hyperlipidemia Hypertension Diabetes mellitus Surgical History History of excision of mass (~02/11/23) History of excision of lesion History of colonoscopy (~2013) Family History Father History of hypertension Mother History of diabetes mellitus History of cardiovascular disorder History of hypertension Son History of muscular dystrophy Maternal Uncle History of prostate cancer Social History Household Members: Spouse Alcohol intake: current Alcohol intake frequency: holidays/special occasions only Patient Tobacco Use Status: Never used Tobacco e-Cigarette/Vaping Use: Currently Using Substance Use Type: Former Substance User and Marijuana Current occupational status: employed 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 Absence of acromegalic features. Neck exam reveals nl size thyroid about 15 gms. No thyroid nodules palpable. Respiratory effect normal. Skin exam reveals absence of vitiligo or acanthosis nigricans. Extrem Other: Visual exam of foot performed. No ulcerations or open lesions. No onchomycosis, no interdigit maceration or fissuring, no callouses. Results Reviewed Results Reviewed: Laboratory Last Values Glucose (Clinic) 146 mg/dL (60-115) H 01/29/24 13:40 Laboratory Tests 02/06/20 11/17/22 05/30/23 07:35 10:25 14:20 Plt Count 265 Potassium Creatinine Estimated GFR Glucose (Clinic) Hgb A1c (Clinic) 7.1 H Calcium AST 19 ALT 17 Triglycerides Cholesterol LDL Cholesterol, Calc HDL Cholesterol Urine Creatinine Urine Microalbumin Microalb/Creat Ratio 10/09/23 11/19/23 11/30/23 14:49 12:59 07:25 Plt Count Potassium 4.3 Creatinine 0.84 Estimated GFR > 60 Glucose (Clinic) Hgb A1c (Clinic) 7.4 H Calcium 9.3 D AST ALT Triglycerides 28 Cholesterol 141 LDL Cholesterol, Calc 65 HDL Cholesterol 71 Urine Creatinine 20.91 Urine Microalbumin 18.0 Microalb/Creat Ratio 86.0 H 01/08/24 01/08/24 14:55 15:05 Plt Count Potassium Creatinine Estimated GFR Glucose (Clinic) 85 Hgb A1c (Clinic) 7.0 H Calcium AST ALT Triglycerides Cholesterol LDL Cholesterol, Calc HDL Cholesterol Urine Creatinine Urine Microalbumin Microalb/Creat Ratio Assessment & Plan Assessment & Plan (1) Diabetes type 1, uncontrolled: Code(s): E10.65 - Type 1 diabetes mellitus with hyperglycemia Category: Medical Qualifiers: Glycemic state: with hyperglycemia Qualified Code(s): E10.65 - Type 1 diabetes mellitus with hyperglycemia Plan: 53-year-old type 1 diabetic with most recent A1c 7%. Given his prior history of hypoglycemia would not recommend attempting to decrease his A1c less than 7%. He was contacted to call our office in between visits if his blood sugars are running above target or having any lows. Fib 4 screen done today for fatty liver: Advanced fibrosis excluded. Backup insulin plan 18 units of insulin for 24 hours plus usual doses of Humalog prox 5 units per meal. Medications: New acetone (urine) test (Ketone Urine Test strips) As directed glucose over 250, illness, nausea, vomiting 25 ea 1RF E10.21 - Type 1 diabetes mellitus with diabetic nephropathy insulin glargine (Lantus U-100 Insulin) 18 units (0.18 mL) subcut DAILY PRN 10 mL 1RF pump failure 30 days MDD 18 units E10.65 - Type 1 diabetes mellitus with hyperglycemia glucagon 3 mg/actuation (Baqsimi) 3 mg intranasal BID PRN 2 ea 1RF unresponsive hypoglycemia 30 days MDD 6 mg E10.65 - Type 1 diabetes mellitus with hyperglycemia Patient Instructions: The patient was counseled to always carry a source of sugar and on the rule of 15's: Take 3 glucose tablets and repeat again in 15 minutes if blood sugar is not in normal range. Continue to repeat every 15 minutes until blood sugar is normal. Symptoms of DKA were reviewed: early: frequent urination, dry mouth, fatigue, feeling ill, severe symptoms: ketones in the urine, abdominal pain, nausea, vomiting and weakness. It is important to hydrate with sugar free liquids every 30 minutes and bring the sugars down to normal levels. Pump failure plan reviewed Coding Level of Care Code Est Pt Level 4 (80840) Diagnoses Uncontrolled type 1 diabetes mellitus with hyperglycemia E10.65 Glycemic state: with hyperglycemia Time Spent (min) 30 Comment Time spent reviewing labs/provider notes, sensor/pump reports, face to face, chart doc
[2024-01-29 13:35] VITALS: BP 122/62; PULSE 70; BMI 26.0
[2024-01-29 13:45] LABS: Glucose, Whole Blood 146 mg/dL (60-115)
== END 2024-01-29 14:05 | disposition home or self-care (01) ==
PROVIDERS: PCP Internal Medicine; Visit Provider Nurse Practitioner Adult Health
DX: E10.65 Type 1 diabetes mellitus with hyperglycemia (principal)
CPT/HCPCS: 99214

== ENCOUNTER → 2024-01-29 13:33 | Outpatient (BNVA) | payer OTHER, MEDICAID, SELFPAY | PROVIDERS: PCP Internal Medicine; Visit Provider Nurse Practitioner Adult Health | DX: E10.65 Type 1 diabetes mellitus with hyperglycemia (principal) | CPT/HCPCS: 82947 ==

== ENCOUNTER 2024-02-03 13:47 | Outpatient (AMB) | payer OTHER, MEDICAID, SELFPAY ==
--- NOTE | 2024-02-03 14:13 | A.OFFVIS_ITS ---
Intake Visit Reasons: OV-Acute pain of the right shoulder-6wk F/U Intake Note: Vasiliy is a 53 year old right hand dominant male who presents today for a follow up of right shoulder pain, he was instructed to work with PT . Injections contraindicated due to high sugars. Patient has continued to work with physical therapy which has significantly improved his symptoms. Allergies almond Allergy (Severe, Verified 01/29/24 13:35) THROAT CLOSES UP divalproex sodium [From DEPAKOTE] Allergy (Unknown, Verified 01/29/24 13:35) HIVES HPI HPI OV-Acute pain of the right shoulder-6wk F/U: Details: Vasiliy is a 53 year old right hand dominant male who presents today for a follow up of right shoulder pain, he was instructed to work with PT . Injections contraindicated due to high sugars. Patient has continued to work with physical therapy which has significantly improved his symptoms. [facility] Medical History Mass of buttock History of anal dysplasia Sleep apnea Vitamin D deficiency 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 Diabetic nephropathy associated with type 1 diabetes mellitus Diabetic polyneuropathy associated with type 1 diabetes mellitus Diabetes type 1, uncontrolled AIN grade II Hyperlipidemia Hypertension Diabetes mellitus Surgical History History of excision of mass (~02/11/23) History of excision of lesion History of colonoscopy (~2013) Family History Father History of hypertension Mother History of diabetes mellitus History of cardiovascular disorder History of hypertension Son History of muscular dystrophy Maternal Uncle History of prostate cancer Social History Household Members: Spouse Alcohol intake: current Alcohol intake frequency: holidays/special occasions only Patient Tobacco Use Status: Never used Tobacco e-Cigarette/Vaping Use: Currently Using Substance Use Type: Former Substance User and Marijuana Current occupational status: employed 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 October f/ PRN Coding Level of Care Code Est Pt Level 3 (67257) Diagnoses Right shoulder pain M25.511
== END 2024-02-03 15:56 | disposition home or self-care (01) ==
PROVIDERS: PCP Internal Medicine; Visit Provider Orthopaedic Surgery
DX: M25.511 Pain in right shoulder (principal)
CPT/HCPCS: 99212

== ENCOUNTER → 2024-02-03 13:47 | Outpatient (BNVA) | payer OTHER, MEDICAID, SELFPAY | PROVIDERS: PCP Internal Medicine; Visit Provider Orthopaedic Surgery ==

== ENCOUNTER 2024-02-06 16:00 | Outpatient (RCR) | payer OTHER, MEDICAID, SELFPAY ==
--- NOTE | 2024-01-10 15:57 | MHC.PT.EP ---
[facility] [place] Office [place] Office [place] Office [address] Darshan Stroud [address] [phone] F: [phone] F: [phone] F: [phone] F: [phone] Physical Therapy Plan of Care Date of Evaluation: 01/10/24 Date of Surgery: Diagnosis: RIGHT shoulder pain (MD Dx) RIGHT ACJ OA (Mod on x-ray imaging) (PT Dx) RS Assessment: Patient is a pleasant 53 y.o. male who is referred to PT by Dr. Fer Hartmann MD of [facility] Orthopedics with Dx of RIGHT shoulder pain. PT diagnosis is RIGHT ACJ OA (Mod on x-ray imaging). Patient impairments include pain, limited shoulder ROM, shoulder weakness. 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 Patient will benefit from skilled PT to address aforementioned impairments and functional limitations to meet established goals. Frequency and Duration: The patient will be seen 1x/week for 4 weeks Short Term Goals: 2 weeks Patient demonstrates consistency and independence with HEP to self manage symptoms Retirement Goals: 4 weeks Patient presents with increased RIGHT shoulder flexion AROM 150 degrees to reach to high cabinets without pain. Patient presents with increased RIGHT shoulder ER AROM 60 degrees to be able to reach behind back for dressing. Treatment Plan: Modalities to reduce pain, spasms and effusion. Manual therapy to restore motion and function. Therapeutic exercise to improve strength and flexibility. Neuromuscular re-education for posture and balance. Therapeutic activities to return to functional activities of daily living. Electronically signed by: Dk Rucker, PT, DPT Please sign and return to therapist. Thank you for your referral.
--- NOTE | 2024-03-11 12:54 | MHC.PT.DC ---
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 He ceased attending PT after this session and is therefore discharged from PT at this time. Electronically signed by: Dk Rucker, PT, DPT Please sign and return to therapist. Thank you for your referral.
== END 2024-03-11 12:54 | disposition home or self-care (01) ==
LOC: HO.PT 16:00
PROVIDERS: PCP Internal Medicine; Visit Provider Orthopaedic Surgery
DX: M25.511 Pain in right shoulder (principal)
CPT/HCPCS: 97110; 97140; 97161; 97530

== ENCOUNTER 2024-03-11 14:30 | Outpatient (AMB) | payer OTHER, MEDICAID, SELFPAY ==
--- NOTE | 2024-03-11 14:40 | A.OFFVIS_ITS ---
Intake Intake Visit Reasons: 30 min/CONFIRMED Digital Project Coordinator Required: No Accompanied by: Self / Same As Patient Allergies almond Allergy (Severe, Verified 01/29/24 13:35) THROAT CLOSES UP divalproex sodium [From DEPAKOTE] Allergy (Unknown, Verified 01/29/24 13:35) HIVES HPI Comprehensive Diabetes Asmnt Most Recent Diabetes Results: Microalb/Creat Ratio 86.0 ug/mg cr (<30) H 11/19/23 Cholesterol 141 mg/dL (<200) 11/30/23 HDL Cholesterol 71 mg/dL (>40) 11/30/23 Triglycerides 28 mg/dL (<150) 11/30/23 Creatinine 0.84 mg/dL (0.5-1.4) 11/30/23 Blood Urea Nitrogen 13 mg/dL (9-16) 11/30/23 Sodium 143 mmol/L (135-145) 11/30/23 Potassium 4.3 mmol/L (3.3-5.1) 11/30/23 Chloride 108 mmol/L (96-108) 11/30/23 Carbon Dioxide 27 mmol/L (22-29) 11/30/23 Calcium 9.3 mg/dL (8.4-10.2) 11/30/23 AST 19 U/L (5-37) 11/17/22 ALT 17 U/L (0-40) 11/17/22 Total Protein 6.9 g/dL (6.5-8.0) 11/17/22 Albumin 4.4 g/dL (3.5-5.0) 11/17/22 [facility] Medical History Mass of buttock History of anal dysplasia Sleep apnea Vitamin D deficiency 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 Diabetic nephropathy associated with type 1 diabetes mellitus Diabetic polyneuropathy associated with type 1 diabetes mellitus Diabetes type 1, uncontrolled AIN grade II Hyperlipidemia Hypertension Diabetes mellitus Surgical History History of excision of mass (~02/11/23) History of excision of lesion History of colonoscopy (~2013) Family History Father History of hypertension Mother History of diabetes mellitus History of cardiovascular disorder History of hypertension Son History of muscular dystrophy Maternal Uncle History of prostate cancer Social History Household Members: Spouse Alcohol intake: current Alcohol intake frequency: holidays/special occasions only Patient Tobacco Use Status: Never used Tobacco e-Cigarette/Vaping Use: Currently Using Substance Use Type: Former Substance User and Marijuana Current occupational status: employed 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, 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 Assessment & Plan Assessment & Plan (1) 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: Code(s): E10.649 - Type 1 diabetes mellitus with hypoglycemia without coma Plan: Patient presents for pump training for Omnipod 5 with Dexcom G 6 The following topics were reviewed today: - using activity feature with Omnipod 5 - using extended bolus for snacking in the evening - benefits of using automode - Inserting infusion set or Pod site rotation Average glucose for the past 2 weeks with 163 mg/dL Patient above target 33% Patient at target 65% Patient below target 3% Automode 67% Manual 33% ? Dexcom account information: User Name: [email or web address] Password: [email or web address] Patient's last A1c in 12/2023 7% auto mode 90% Manual mode 10% Patient hypoglycemic range has improved from 6% at last visit to 3% at this visit. Encourage patient to stay in automode as much as possible, this will reduce his risk of hypoglycemia. Discussed with patient if he would like to switch from Dexcom G6 sensors to Dexcom G7 sensors, he needs to wait until he can receive the Dexcom G7 Omnipod pods Once he receives them if he has questions he can contact family life educator Setting verified by [facility], no changes made to today's pump settings Basal rate(s) (units/hour) : 12 AM to 12 AM 0.65 units / hr 2 PM? to 12 AM ? 0.95 units / hr? Bolus setting Insulin Carbohydrate Ratio (s) 12 AM? to? 11 AM? 1:15.5 11 AM to 3 PM 1:18 3 PM to 12 AM 1:16 Correction Factor / Sensitivity Factor 12 AM-5:30 AM 1:70 5:30 AM to 12 AM 1:50 Target: 120 mg/dL Target threshold 120 mg/dL 2:00pm to 7 PM 130 mg/dL 7 PM to 12 AM 110 mg/dL Active Insulin Time:?3 hours Patient Instructions: Contact family life educator with questions or concerns Follow-up with family life educator in 4 months Coding Level of Care Code Est Pt Level 1 (54427) Diagnoses 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 E10.649
== END 2024-03-11 14:56 | disposition home or self-care (01) ==
PROVIDERS: PCP Internal Medicine; Visit Provider Registered Nurse Diabetes Educator
DX: E10.649 Type 1 diabetes mellitus with hypoglycemia without coma (principal)

== ENCOUNTER → 2024-03-11 14:30 | Outpatient (BNVA) | payer OTHER, MEDICAID, SELFPAY | PROVIDERS: PCP Internal Medicine; Visit Provider Registered Nurse Diabetes Educator | DX: Z46.81 Encounter for fitting and adjustment of insulin pump (principal); E10.649 Type 1 diabetes mellitus with hypoglycemia without coma | CPT/HCPCS: 99211 ==

== ENCOUNTER 2024-04-01 15:41 | Outpatient (REF) | payer OTHER, MEDICAID, SELFPAY ==
[2024-04-01 17:03] LABS: Alanine Aminotransferase 29 U/L (0-40); Albumin Level 4.4 g/dL (3.5-5.0); Alkaline Phosphatase 69 U/L (39-117); Anion Gap 11 (12-20); Aspartate Amino Transferase 29 U/L (5-37); Bilirubin Total 0.4 mg/dL (0.0-1.0); Blood Urea Nitrogen 12 mg/dL (9-16); Calcium 9.9 mg/dL (8.4-10.2); Carbon Dioxide 30 mmol/L (22-29); Chloride 105 mmol/L (96-108); Cholesterol 140 mg/dL (<200); Estimated Glomerular Filt Rate > 60; Glucose Random 60 mg/dL (60-115); HDL Cholesterol 70 mg/dL (>40); LDL Cholesterol Calculated 61 mg/dL (<100); Potassium 4.3 mmol/L (3.3-5.1); Prostate Specific Antigen Scr 0.52 ng/mL (<0.05-4.0); Sodium 142 mmol/L (135-145); Total Protein 6.9 g/dL (6.5-8.0); Triglycerides 46 mg/dL (<150)
== END 2024-04-01 15:42 | disposition home or self-care (01) ==
LOC: HO.HHCL 15:41
PROVIDERS: Visit Provider Internal Medicine
DX: Z00.00 Encounter for general adult medical examination without abnormal findings (principal); E10.42 Type 1 diabetes mellitus with diabetic polyneuropathy; I10 Essential (primary) hypertension; Z12.5 Encounter for screening for malignant neoplasm of prostate
CPT/HCPCS: 36415; 80053; 80061; 84153

== ENCOUNTER 2024-04-30 15:17 | Outpatient (AMB) | payer OTHER, MEDICAID, SELFPAY ==
--- NOTE | 2024-04-30 07:23 | A.OFFVIS_ITS ---
Vital Signs 04/30/24 15:33 Height 5 ft 5 in Weight 167 lb 8.821 oz BMI 27.9 BP 136/74 Blood Pressure Location Rt brachial Position Sitting Pulse 100 Pulse Source Pulse Oximeter Intake Visit Reasons: T1DM/CONF Intake Note: Patient presents today for a follow-up on Type 1 Diabetes Mellitus: Last Diabetic Eye exam: 01/09/2024 Last Podiatry Exam: Does not see a Brush Sander Most recent HbA1c: 7.0%, 04/30/2024 Random Glucose- 125 mg/dL, Today High Pressure Operator Required: No Accompanied by: Self / Same As Patient Allergies almond Allergy (Severe, Verified 01/29/24 13:35) THROAT CLOSES UP divalproex sodium [From DEPAKOTE] Allergy (Unknown, Verified 01/29/24 13:35) HIVES HPI Comments Details: Patient is 53-year-old male with DM type 1 diagnosed at 7 years of age who presents for management of diabetes. He was last seen by myself 01/29/24 and by Brittani DIAZ 03/11/2024 A1C 7.0% Past medical history: Diabetes type 1, bipolar disorder hypertension hyperlipidemia Micro and macrovascular complications: Retinopathy, nephropathy Diabetes medications: Omnipod pump 5 and Dexcom G 6 with Humalog insulin. At his last visit he was eating and entering in the pump an extensive amount of carbs in the evening. Prior 24 recall shows not enough protein intake during the day and excess carbs in the cecy. He is working on this. Has difficulty on the week end when he purchases two loaves of mongolian water bread. 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 Next screen 12/09 Button Maker - CDE education: followed by CDE Brush Sander: Ophthalmology evaluation: goes annually last exam January 2024 no changes in retinopathy prior h/o laser x 3 Basal rate(s) (units/hour) : 12 AM to 12 AM 0.65 units / hr 2 PM? to 12 AM ? 0.95 units / hr? Bolus setting Insulin Carbohydrate Ratio (s) 12 AM? to? 11 AM? 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 Diabetic nephropathy associated with type 1 diabetes mellitus Diabetic polyneuropathy associated with type 1 diabetes mellitus Diabetes type 1, uncontrolled AIN grade II Hyperlipidemia Hypertension Diabetes mellitus Surgical History History of excision of mass (~02/11/23) History of excision of lesion History of colonoscopy (~2013) Family History Father History of hypertension Mother History of diabetes mellitus History of cardiovascular disorder History of hypertension Son History of muscular dystrophy Maternal Uncle History of prostate cancer Social History Household Members: Spouse Alcohol intake: current Alcohol intake frequency: holidays/special occasions only Patient Tobacco Use Status: Never used Tobacco e-Cigarette/Vaping Use: Currently Using Substance Use Type: Former Substance User and Marijuana Current occupational status: employed 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 Absence of acromegalic features. Neck exam reveals nl size thyroid about 15 gms. No thyroid nodules palpable. No carotid bruits present. Lungs CTA. Heart S1 S2, Reg R/R. No M/R G. Skin exam reveals absence of vitiligo or acanthosis nigricans. No edema Visual exam of foot performed. No ulcerations or open lesions. No inter digit maceration or fissuring. No onychomycosis, no callouses. Sensation intact to monofilament exam. Vibratory sensation is normal with 128 Hz tuning fork. Results Reviewed Results Reviewed: Laboratory Last Values Glucose (Clinic) 125 mg/dL (60-115) H 04/30/24 15:38 Assessment & Plan Assessment & Plan (1) Diabetes type 1, uncontrolled: Code(s): E10.65 - Type 1 diabetes mellitus with hyperglycemia Category: Medical Qualifiers: Glycemic state: with hyperglycemia Qualified Code(s): E10.65 - Type 1 diabetes mellitus with hyperglycemia Plan: 53-year-old type 1 diabetic with neuropathy and stable retinopathy with recent A1c of on an insulin pump. The patient had an opportunity to ask questions regarding treatment plan. The patient expressed understanding and agreement with the above treatment plan. The patient is aware they should contact our office by phone for worsening glucose readings or for any low blood sugars which may warrant a change in diabetes medication. Compliance is encouraged with medications and any followup testing/consults which may have been ordered. Orders: Orders AMB Hemoglobin A1c Today E10.65 - Type 1 diabetes mellitus with hyperglycemia Patient Instructions: The patient was counseled to achieve a target A1C of 7% (154 avg). Fasting blood sugars should be 90-130 in the morning and less than 180 two hours after meals. Reviewed the relationship between poor diabetic control and the development of complications. The patient was counseled to always carry a source of sugar and on the rule of 15's: Take 3 glucose tablets and repeat again in 15 minutes if blood sugar is not in normal range. Continue to repeat every 15 minutes until blood sugar is normal. Troubleshooting after starting new pod or inserting new insulin set: Occlusion, adhesive tape sensitivity, redness Check BG 2 hours after site change Safety information: Importance of a backup plan, for manual injections, proper prescriptions and emergency supplies ketone strips, and rules for testing for ketones Symptoms of DKA (diabetic ketoacidosis): early: frequent urination, dry mouth, fatigue, feeling ill, severe symptoms: ketones in the urine, abdominal pain, nausea, vomiting and weakness. It is important to hydrate with sugar free liquids every 15-30 minutes and bring the sugars down to normal levels. If you are moderate or severe with ketones or unable to bring glucose to less than 200, go to the emergency room. Check your feet daily looking for any signs of infection, ulceration and seek medical attention if this occurs. Break in shoes gradually and do not wear open-toed shoes or walk barefooted. Coding Diagnoses Uncontrolled type 1 diabetes mellitus with hyperglycemia E10.65 Glycemic state: with hyperglycemia
[2024-04-30 15:33] VITALS: BP 136/74; PULSE 100; BMI 27.9
[2024-04-30 15:42] LABS: Glucose, Whole Blood 125 mg/dL (60-115)
== END 2024-04-30 16:04 | disposition home or self-care (01) ==
PROVIDERS: PCP Internal Medicine; Visit Provider Nurse Practitioner Adult Health
DX: E10.65 Type 1 diabetes mellitus with hyperglycemia (principal)

== ENCOUNTER → 2024-04-30 15:17 | Outpatient (BNVA) | payer OTHER, MEDICAID, SELFPAY | PROVIDERS: PCP Internal Medicine; Visit Provider Nurse Practitioner Adult Health | DX: E10.65 Type 1 diabetes mellitus with hyperglycemia (principal); Z96.41 Presence of insulin pump (external) (internal) | CPT/HCPCS: 82947; 83036 ==

== ENCOUNTER 2024-07-09 15:33 | Outpatient (AMB) | payer OTHER, MEDICAID, SELFPAY ==
--- NOTE | 2024-07-09 16:05 | A.OFFVIS_ITS ---
Intake Intake Visit Reasons: 30 min Senior Qa Analyst Required: No Accompanied by: Self / Same As Patient Allergies almond Allergy (Severe, Verified 01/29/24 13:35) THROAT CLOSES UP divalproex sodium [From DEPAKOTE] Allergy (Unknown, Verified 01/29/24 13:35) HIVES HPI Comprehensive Diabetes Asmnt Most Recent Diabetes Results: Microalb/Creat Ratio 86.0 ug/mg cr (<30) H 11/19/23 Cholesterol 140 mg/dL (<200) 04/01/24 HDL Cholesterol 70 mg/dL (>40) 04/01/24 Triglycerides 46 mg/dL (<150) 04/01/24 Creatinine 0.88 mg/dL (0.5-1.4) 04/01/24 Blood Urea Nitrogen 12 mg/dL (9-16) 04/01/24 Sodium 142 mmol/L (135-145) 04/01/24 Potassium 4.3 mmol/L (3.3-5.1) 04/01/24 Chloride 105 mmol/L (96-108) 04/01/24 Carbon Dioxide 30 mmol/L (22-29) H 04/01/24 Calcium 9.9 mg/dL (8.4-10.2) 04/01/24 AST 29 U/L (5-37) 04/01/24 ALT 29 U/L (0-40) 04/01/24 Total Protein 6.9 g/dL (6.5-8.0) 04/01/24 Albumin 4.4 g/dL (3.5-5.0) 04/01/24 [facility] Medical History Mass of buttock History of anal dysplasia Sleep apnea Vitamin D deficiency 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 Diabetic nephropathy associated with type 1 diabetes mellitus Diabetic polyneuropathy associated with type 1 diabetes mellitus Diabetes type 1, uncontrolled AIN grade II Hyperlipidemia Hypertension Diabetes mellitus Surgical History History of excision of mass (~02/11/23) History of excision of lesion History of colonoscopy (~2013) Family History Father History of hypertension Mother History of diabetes mellitus History of cardiovascular disorder History of hypertension Son History of muscular dystrophy Maternal Uncle History of prostate cancer Social History Household Members: Spouse Alcohol intake: current Alcohol intake frequency: holidays/special occasions only Patient Tobacco Use Status: Never used Tobacco e-Cigarette/Vaping Use: Currently Using Substance Use Type: Former Substance User and Marijuana Current occupational status: employed 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, 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 Assessment & Plan Assessment & Plan (1) Diabetes type 1, uncontrolled: Code(s): E10.65 - Type 1 diabetes mellitus with hyperglycemia Qualifiers: Glycemic state: with hyperglycemia Qualified Code(s): E10.65 - Type 1 diabetes mellitus with hyperglycemia Plan: Patient presents for pump training for Omnipod 5 with Dexcom G 6 The following topics were reviewed today: - using activity feature with Omnipod 5 - small self adjustments if changing insulin pump settings - Dexcom G6 versus Dexcom G7 - Inserting infusion set or Pod site rotation Average glucose for the past 2 weeks with 141 mg/dL Patient above target 20% Patient at target 73% Patient below target 7% Automode 93% Manual 7% ? Patient's last A1c on 04/30/24 7% Dexcom account information: User Name: [email or web address] Password: [email or web address] Patient continues to add extra carbohydrate when he is not eating to try and bring glucose levels down. Explained to patient this makes it difficult to make pump adjustments and puts him at higher risk for hypoglycemia Patient also made some self adjustments changing his insulin to carb ratio in the afternoons from 1:16-1:12 which has caused increase in hypoglycemia Encourage patient not to enter phantom carbs. Setting verified by CDCES, see changes below Basal rate(s) (units/hour) : 12 AM to 12 AM 0.7 units / hr 2 PM? to 12 AM ? 1 units / hr? Bolus setting Insulin Carbohydrate Ratio (s) 12 AM? to? 11 AM? 1:15 11 AM to 3 PM 1:20 3 PM to 12 AM 1:12 New PM to 12 AM 1:15 Correction Factor / Sensitivity Factor 12 AM-5:30 AM 1:60 5:30 AM to 12 AM 1:50 Target: 120 mg/dL Target threshold 120 mg/dL 2:00pm to 7 PM 130 mg/dL 7 PM to 12 AM 110 mg/dL Active Insulin Time:?3.5 hours Patient Instructions: Patient will follow-up with Diabetes Education nurse in 6 weeks' Coding Level of Care Code Est Pt Level 1 (76607) Diagnoses Uncontrolled type 1 diabetes mellitus with hyperglycemia E10.65 Glycemic state: with hyperglycemia
--- OUTSIDE RECORDS SUMMARY | 2024-07-09 18:28 | XMS_ITS | Encounter Summary ---
Author Organization [facility] Address [address] [place] [address] Care Team Providers Care Advertising Sales Assistant Name Role Phone Tian Chan MD Primary Care Provide r Encounter Details Date Type Department Care Team ([facility] st Contact Info) Description 10/25/2022 Abstract [facility] MEDICINE [address] [place] [address] Tian Chan MD [address] [place] [address] Social History Tobacco Use Types Packs/Day Years Used Date Smoking Tobacco: Never Assessed Sex and Gender Information Value Date Recorded Sex Assigned at Male 04/16/2022 10:15 AM EDT Legal Sex Male 10:15 AM EDT Gender Identity Male 04/16/2022 10:15 AM EDT Sexual Orientation Straight 04/16/2022 10 :15 AM EDT documented as of this encounter Plan of Treatment Not on file documented as of this encounter Procedures Procedure Name Priority Date/Time Associated Diagnosis Comments COLONOSCOPY Routine 06/23/2019 documented in this encounter Results * Colonoscopy (06/23/2019) Colonoscopy Normal Normal 06/23/2019 Narrative Gloria Rai - 06/23/2019 Recommended 5 year follow up Historical Provider HEALTH MAINTENANCE Edited Result - Final documented in this encounter Visit Diagnoses Not on filedocumented in this encounter Care Teams Advertising Sales Assistant Relationship Specialty Start Date End Date Tian Chan MD [address] [place] [address] PCP - General Internal Medicine 10/04/15 documented as of this encounter
--- OUTSIDE RECORDS SUMMARY | 2024-07-09 18:28 | XMS_ITS | Encounter Summary ---
Author Organization [employer] Address [address] [place] [address] Care Team Providers Care Marketing Sales Supervisor Name Role Phone Tian Chan MD Primary Care Provide r Encounter Details Date Type Department Care Team (Late st Contact Info) Description 08/20/2022 Orders Only [facility] MED & PEDS [address] [place] [address] Harriet Garcia LPN Social History Tobacco Use Types Packs/Day Years [...] on file documented as of this encounter Visit Diagnoses Not on filedocumented in this encounter Care Teams Marketing Sales Supervisor Relationship Specialty Start Date End Date Tian Chan MD [address] [place] [id number] PCP - General Internal Medicine 10/04/15 documented as of this encounter
--- OUTSIDE RECORDS SUMMARY | 2024-07-09 18:28 | XMS_ITS | Encounter Summary ---
Author Organization [email or web address] [facility] Address [address] [place] [address] Care Team Providers Care Supervisor Dog License Officer Name Role Phone Tian Chan MD Primary Care Provide r Encounter Details Date Type Department Care Team (Latest Contact Info) Description 10/17/2021 Abstract [facility] CONVERSIONS Dental, Provider, DDS Social History Tobacco Use Types Packs/Day Years [...] on filedocumented in this encounter Care Teams Supervisor Dog License Officer Relationship Specialty Start Date End Date Tian Chan MD [address] [place] [id number] PCP - General Internal Medicine 10/04/15 documented as of this encounter
== END 2024-07-09 16:18 | disposition home or self-care (01) ==
PROVIDERS: PCP Internal Medicine; Visit Provider Registered Nurse Diabetes Educator
DX: E10.65 Type 1 diabetes mellitus with hyperglycemia (principal)

== ENCOUNTER → 2024-07-09 15:33 | Outpatient (BNVA) | payer OTHER, MEDICAID, SELFPAY | PROVIDERS: PCP Internal Medicine; Visit Provider Registered Nurse Diabetes Educator | DX: Z46.81 Encounter for fitting and adjustment of insulin pump (principal); E10.65 Type 1 diabetes mellitus with hyperglycemia | CPT/HCPCS: 99211 ==

== ENCOUNTER 2024-08-06 15:19 | Outpatient (AMB) | payer OTHER, MEDICAID, SELFPAY ==
--- NOTE | 2024-08-06 08:42 | A.OFFVIS_ITS ---
Vital Signs 08/06/24 15:22 Height 5 ft 5 in Weight 156 lb 8.451 oz BMI 26.0 BP 128/80 Blood Pressure Location Rt brachial Position Sitting Pulse 98 Pulse Source Pulse Oximeter Pulse Oximetry (%) 100 Oxygen Delivery Method Room Air Intake Visit Reasons: Type 1 DM Intake Note: Patient presents today for a follow-up on Type 1 Diabetes Mellitus: Last Diabetic Eye exam: 01/09/2024 Last Podiatry Exam: Does not see a Administrative Support Assistant Most recent HbA1c: 6.9%, 08/06/2024 Random Glucose- 102 mg/dL, Today Information Technology Technician Required: No Accompanied by: Self / Same As Patient Allergies almond Allergy (Severe, Verified 01/29/24 13:35) THROAT CLOSES UP divalproex sodium [From DEPAKOTE] Allergy (Unknown, Verified 01/29/24 13:35) HIVES HPI Comments Details: Patient is 54-year-old male with DM type 1 diagnosed at 7 years of age who presents for management of diabetes. He was last seen by myself 04/30/24 with a A1C of 7% and by Brittani DIAZ 07/30/24 at which time his insulin carbohydrate ratio was adjusted in the evening to prevent postprandial lows. A1C 08/06/24 6.9% with no lows. Past medical history: Diabetes type 1, bipolar disorder hypertension hyperlipidemia Micro and macrovascular complications: Retinopathy, nephropathy Diabetes medications: Omnipod pump 5 and Dexcom G 6 with Humalog insulin. At his last visit he was eating and entering in the pump an extensive amount of carbs in the evening. Prior 24 recall shows not enough protein intake during the day and excess carbs in the cecy. He is working on this. Has difficulty on the week end when he purchases two loaves of canadian water bread. 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 Next screen 12/09 Phone Manager - CDE education: followed by CDE Administrative Support Assistant: Has retinopathy: Ophthalmology evaluation: goes annually last exam January 2024 no changes in retinopathy prior h/o laser x 3 Backup insulin plan Lantus 17 units Usual doses of Humalog pre meal settings not confirmed today Basal rate(s) (units/hour) : 12 AM to 12 AM 0.7 units / hr 2 PM? to 12 AM ? 1 units / hr? Bolus setting Insulin Carbohydrate Ratio (s) 12 AM? to? 11 AM? 1:15 11 AM to 3 PM 1:20 3 PM to 12 AM 1:15 Correction Factor / Sensitivity Factor 12 AM-5:30 AM 1:60 5:30 AM to 12 AM 1:50 Target: 120 mg/dL Target threshold 120 mg/dL 2:00pm to 7 PM 130 mg/dL 7 PM to 12 AM 110 mg/dL [facility] Medical History Mass of buttock History of anal dysplasia Sleep apnea Vitamin D deficiency 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 Diabetic nephropathy associated with type 1 diabetes mellitus Diabetic polyneuropathy associated with type 1 diabetes mellitus Diabetes type 1, uncontrolled AIN grade II Hyperlipidemia Hypertension Diabetes mellitus Surgical History History of excision of mass (~02/11/23) History of excision of lesion History of colonoscopy (~2013) Family History Father History of hypertension Mother History of diabetes mellitus History of cardiovascular disorder History of hypertension Son History of muscular dystrophy Maternal Uncle History of prostate cancer Social History Household Members: Spouse Alcohol intake: current Alcohol intake frequency: holidays/special occasions only Patient Tobacco Use Status: Never used Tobacco e-Cigarette/Vaping Use: Currently Using Substance Use Type: Former Substance User and Marijuana Current occupational status: employed 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 Absence of acromegalic features. Neck exam reveals nl size thyroid about 15 gms. No thyroid nodules palpable. Heart S1 S2, Reg R/R. No M/R G. Skin exam reveals absence of vitiligo or acanthosis nigricans. Visual exam of foot performed. No ulcerations or open lesions. No inter digit maceration or fissuring. No onychomycosis, no callouses. Sensation intact to monofilament exam. Vibratory sensation is normal with 128 Hz tuning fork. Results AMB Hemoglobin A1c AMB Hemoglobin A1c 6.9 % Last Edit by ATIF Wade on 08/06/24 15:40 Results Reviewed Results Reviewed: Laboratory Last Values Glucose (Clinic) 102 mg/dL (60-115) 08/06/24 15:27 Assessment & Plan Assessment & Plan (1) Diabetes type 1, uncontrolled: Code(s): E10.65 - Type 1 diabetes mellitus with hyperglycemia Category: Medical Qualifiers: Glycemic state: with hyperglycemia Qualified Code(s): E10.65 - Type 1 diabetes mellitus with hyperglycemia Plan: see below Plan 54-year-old type 1 diabetic with stable retinopathy and neuropathy with an A1c 08/06/24 6.9%. Previous A1c 7%. The patient had an opportunity to ask questions regarding treatment plan. The patient expressed understanding and agreement with the above treatment plan. The patient is aware they should contact our office by phone for worsening glucose readings or for any low blood sugars which may warrant a change in d iabetes medication. Compliance is encouraged with medications and any followup testing/consults which may have been ordered. Orders: Orders AMB Glucose Monitoring Today E10.65 - Type 1 diabetes mellitus with hyperglycemia AMB Hemoglobin A1c Today E10.649 - Type 1 diabetes mellitus with hypoglycemia without coma Medications: New insulin lispro up to 100 units via continuous infusion via insulin pump subcutaneously daily; 30 days 30 mL 6RF Changed From gabapentin 800 mg PO TID 90 tabs 3RF E10.42 - Type 1 diabetes mellitus with diabetic polyneuropathy To gabapentin 800 mg PO BID 30 days 60 tabs 3RF MDD 1600 E10.42 - Type 1 diabetes mellitus with diabetic polyneuropathy Refilled insulin glargine (Lantus U-100 Insulin) 16 units (0.16 mL) subcut DAILY 30 days PRN 10 mL 1RF pump failure MDD 18 units E10.65 - Type 1 diabetes mellitus with hyperglycemia Discontinued Humalog U-100 Insulin (insulin lispro) Discontinued Reason: Duplicate 100 units subcut DAILY 30 days 30 mL 2RF NS E10.65 - Type 1 diabetes mellitus with hyperglycemia insulin lispro (Humalog U-100 Insulin) Discontinued Reason: Doctor's Order up to 100 units daily via insulin pump subcutaneously daily; 30 days 30 mL 11RF Patient Instructions: Symptoms of DKA (diabetic ketoacidosis): early: frequent urination, dry mouth, fatigue, feeling ill, severe symptoms: ketones in the urine, abdominal pain, nausea, vomiting and weakness. It is important to hydrate with sugar free l iquids every 15-30 minutes and bring the sugars down to normal levels. If you are moderate or severe with ketones or unable to bring glucose to less than 200, go to the emergency room. Written DKA sheet given Troubleshooting after starting new pod or inserting new insulin set: Occlusion, adhesive tape sensitivity, redness Check BG 2 hours after site change Safety information: Importance of a backup plan, for manual injections, proper prescriptions and emergency supplies ketone strips, and rules for testing for ketones Take 15 carb carbohydrate grams to treat a low sugar (3-4 glucose tablets, half a glass of juice or 15 carbohydrate grams of soft candy such as gummie snacks). Recheck your sugar in 15 minutes and re-treat again with 15 carbohydrate grams if low or still with symptoms. Do not drive a car or operate machinery if you do not know what your blood sugar is, if it is low or in excess of 300. Sick day management reviewed Check your feet daily looking for any signs of infection, drainage, redness, ulceration and seek medical attention if this occurs. Break in shoes gradually and do not wear open-toed shoes or walk stocking footed or barefooted. Coding Level of Care Code Est Pt Level 5 (83559) Complex EM visit Add On G2211 Diagnoses Uncontrolled type 1 diabetes mellitus with hyperglycemia E10.65 Glycemic state: with hyperglycemia Time Spent (min) 45 Comment Time spent reviewing labs/provider notes, face to face, chart doc
[2024-08-06 15:22] VITALS: BP 128/80; PULSE 98; O2SAT 100; BMI 26.0
[2024-08-06 15:35] LABS: Glucose, Whole Blood 102 mg/dL (60-115)
--- OUTSIDE RECORDS SUMMARY | 2024-08-06 16:23 | XMS_ITS | Encounter Summary ---
Author Organization [employer] Address [address] [place] [address] Care Team Providers Care Manager Cath Lab Name Role Phone Tian Chan MD Primary Care Provide r Encounter Details Date Type Department Care Team (Late st Contact Info) Description 08/20/2022 Orders Only [facility] MED & PEDS [address] [place] [address] Harriet Garcia LPN Social History Tobacco Use [...] on filedocumented in this encounter Care Teams Manager Cath Lab Relationship Specialty Start Date End Date Tian Chan MD [address] [place] [phone] PCP - General Internal Medicine 10/04/15 documented as of this encounter
--- OUTSIDE RECORDS SUMMARY | 2024-08-06 16:23 | XMS_ITS | Encounter Summary ---
Author Organization [employer] Address [address] [facility] [address] [place] [address] Care Team Providers Care Television Station Manager Name Role Phone Tian Chan MD Primary Care Provide r Reason for Visit * Reason Comments Cough Encounter Details Date Type Department Care Team ([facility] st Contact Info) Description 07/30/2024 1:40 PM EST Office Visit [facility] [address], [place] [phone] Sandra Babin NP [address] [place], [place] [phone] Cough in adult patient (Primary Dx); Influenza A; Nausea; Elevated blood pressure reading in office with diagnosis of hypertension Social History Tobacco Use Types Packs/Day Years Used Date Smoking Tobacco: Never Passive Smoke Exposure: Never Smokeless Tobacco: Never Depression Answer Date Recorded Patient Health Questionnaire-9 Score 2 10/15/2023 Patient Health Questionnaire-9 Score 2 10/15/2023 Last PHQ-9: Questionnaire Data Not on file 0 10/15/2023 Housing Stability Answer Date Recorded What is your housing situation today? I have mary honeycutt 10/15/[address] you li ve. Do you have problems with any of the following? None of the above 10/15/2023 Transportation Answer Date Recorded In the past 12 months, has l ack of transportation kept you from medical appts, meetings, work or from getting things needed for daily living? No 10/15/2023 Utilities Answer Date Recorded In the past 12 months, has t he electric, gas, oil or water company threatened to shut off services in your home? No 10/15/2023 Depression Answer Date Recorded Patient Health Questionnaire-2 Score 0 10/15/2023 Sex and Gender Information Value Date Recorded Sex Assigned at Male 04/16/2022 10:15 AM EDT Legal Sex Male 10:15 AM EDT Gender Identity Male 04/16/2022 10:15 AM EDT Sexual Orientation Straight 04/16/2022 10 :15 AM EDT documented as of this encounter Last Filed Vital Signs Vital Sign Reading Time Taken Comments Blood Pressure 146/84 07/30/2024 1:42 PM EST Pulse 99 07/30/2024 1:42 PM EST Temperature 36.8 ??C (98.2 ??F) 07/30/2024 1:42 PM ES T Respiratory Rate 18 07/30/2024 1:42 PM EST Oxygen Saturation 97% 07/30/2024 1:42 PM EST Inhaled Oxygen Concentration - - Weight 71.2 kg (157 lb) 07/30/2024 1:42 PM EST Height - - Body Mass Index 24.59 01/16/2024 2:38 PM EDT documented in this encounter Progress Notes * Sandra Babin NP - 07/30/2024 1:40 PM EST SUBJECTIVE: Vasiliy Pierce is a 54 y.o. male who presents to the [facility] for a sick visit. Denies recent illness, injury, or hospitalization. HPI Complains of generalized body ache that started 4 days ago, followed by decreased appetitie, diarrhea, vomiting (non-bilious, non bloody), leg cramping with standing, cough, nausea that started 2 days ago. Has been taking tylenol 975 mg two times daily for his symptoms. States his glucose readings have been elevated at 207 and he has been treating with insulin pump. Denies fever, chills, confusion. He is noted to have increased BP reading in the clinic today. States he took his BP med just beforecoming to the clinic today. Review of Systems Constitutional: Positive for appetite change. Negative for chills and fever. HENT: Negative. Negative for congestion and sore throat. Eyes: Negative for discharge. Respiratory: Positive for cough. Negative for chest tightness and shortness of breath. Cardiovascular: Negative for chest pain and palpitations. Gastrointestinal: Positive for nausea and vomiting. Negative for abdominal pain, constipation and diarrhea. Genitourinary: Negative. Negative for difficulty urinating. Musculoskeletal: Positive for myalgias. Negative for arthralgias. Skin: Negative for rash. Neurological: Negative. Negative for dizziness, speech difficulty, light- headedness and headaches. Hematological: Negative. Psychiatric/Behavioral: Negative for behavioral problems, self-injury and suicidal ideas. The patient is not nervous/anxious. OBJECTIVE: Visit Vitals BP (!) 146/84 (BP Location: Left arm, Patient Position: Sitting, BP Cuff Size: Adult) Pulse 99 Temp 98.2 ??F (36.8 ??C) (Temporal) Resp 18 Wt 157 lb (71.2 kg) SpO2 97% BMI 24.59 kg/m?? Smoking Status Never BSA 1.83 m?? Patient Active Problem List Diagnosis Type 1 diabetes mellitus ([facility]) Tubular adenoma Mixed hyperlipidemia Mild intermittent asthma Microalbuminuria Insulin pump in place Hypertension Diabetic retinopathy ([facility]) Diabetic polyneuropathy ([facility]) Chronic hyperkalemia Bipolar disorder ([facility]) AIN grade II Restless legs syndrome Preventative health care Acute pain of right shoulder Office Visit on 07/30/2024 Component Date Value Ref Range Status Influenza B 07/30/2024 Negative Negative, Indeterminate Final Influenza A 07/30/2024 Positive (A) Negative, Indeterminate Final Rapid COVID Ag 07/30/2024 Negative Final Physical Exam Vitals reviewed. Constitutional: General: He is not in acute distress. Appearance: Normal appearance. He is not ill-appearing. HENT: Head: Normocephalic and atraumatic. Right Ear: External ear normal. Left Ear: External ear normal. Nose: Nose normal. Mouth/Throat: Mouth: Mucous membranes are moist. Pharynx: Oropharynx is clear. Uvula midline. No oropharyngeal exudate, posterior oropharyngeal erythema or uvula swelling. Tonsils: No tonsillar exudate or tonsillar abscesses. Eyes: General: No scleral icterus. Extraocular Movements: Extraocular movements intact. Cardiovascular: Rate and Rhythm: Normal rate and regular rhythm. Pulses: Normal pulses. Heart sounds: Normal heart sounds. Pulmonary: Effort: Pulmonary effort is normal. No respiratory distress. Breath sounds: Normal breath sounds. Musculoskeletal: General: Normal range of motion. Cervical back: Normal range of motion. Neurological: General: No focal deficit present. Mental Status: He is alert and oriented to person, place, and time. Gait: Gait normal. Psychiatric: Mood and Affect: Mood normal. Behavior: Behavior normal. Assessment/Plan Diagnoses and all orders for this visit: Cough in adult patient - Influenza B (ID NOW Rapid Molecular) - Influenza A (ID NOW Rapid Molecular) - POCT Rapid COVID Ag Influenza A Comments: -POC positive Flu A -Rapid COVID-19, Influenza B negative today -advised increase fluid intake and rest, tylenol/ibuprofen for fever/pain -advised bland diet (food examples provided), slowly progressing as tolerated -if sore throat: salt water gargles, drink tea with honey & lemon, suck lozenge -rx'ed tamiflu and benzonatate pearls -return to walk-in center with worsening symptoms or no improvement -work note provided to return on Saturday08/04/24 Orders: - oseltamivir (Tamiflu) 75 MG capsule; Take 1 capsule (75 mg) by mouth 2 times daily for 5 days. - benzonatate (Tessalon Perles) 100 MG capsule; Take 1 capsule (100 mg) by mouth if needed in the morning, at noon, and at bedtime for cough for up to 7 days. Do not crush or chew. Nausea - ondansetron (Zofran) 4 MG tablet; Take 1 tablet (4 mg) by mouth every 8 (eight) hours if needed for nausea or vomiting for up to 10 doses. Elevated blood pressure reading in office with diagnosis of hypertension Comments: -persistent med compliance advised -lifestyle modifications reviewed documented in this encounter Plan of Treatment Not on file documented as of this encounter Procedures Procedure Name Priority Date/Time Associated Diagnosis Comments POCT INFLUENZA B (ID NOW RAPID MOLECULAR) Routine 07/30/2024 1:53 PM EST Cough in adult patient POCT INFLUENZA A (ID NOW RAPID MOLECULAR) Routine 07/30/2024 1:53 PM EST Cough in adult patient POCT RAPID COVID ANTIGEN Routine 07/30/2024 1:53 PM EST Cough in adult patient documented in this encounter Results * POCT Rapid COVID Ag (07/30/2024 1:53 PM EST) Rapid COVID Ag Negative Swab 07/30/2024 1:53 PM EST us Sandra Babin [employer] SALES CONSULTANT POINT OF CARE TEST ENTER/EDIT O RDERABLES Final Result * (ABNORMAL) Influenza A (ID NOW Rapid Molecular) (07/30/2024 1:53 PM EST) Influenza A Positive( A) Negative, Indeterminate [facility] Swab 07/30/2024 1:53 PM EST us Sandra Mack [employer] SALES CONSULTANT POINT OF CARE TEST ENTER/EDIT O RDERABLES Final Result Performing Organization Address City/[facility]/ZIP Co de Phone Number [facility] [address] [place] [phone] * Influenza B (ID NOW Rapid Molecular) (07/30/2024 1:53 PM EST) Pathologist [facility] Influenza B Negative Negative, Indeterminate [facility] Swab 07/30/2024 1:53 PM EST us Sandra Babin [employer] SALES CONSULTANT POINT OF CARE TEST ENTER/EDIT O RDERABLES Final Result Performing Organization Address [facility] Co de Phone Number [facility] [address] [place] [phone] documented in this encounter Visit Diagnoses Diagnosis Cough in adult patient- Primary Influenza A Influenza with other respiratory manifestations Nausea Nausea alone Elevated blood pressure reading in office with diagnosis of hypertension documented in this encounter Additional Health Concerns Assessment Noted Time PHQ-9 Depression Total Score: 2 10/15/19 24 10:54 AM EDT documented as of this encounter Care Teams Television Station Manager Relationship Specialty Start Date End Date Tian Chan MD [address] [place] [phone] PCP - General Internal Medicine 10/04/15 documented as of this encounter
--- OUTSIDE RECORDS SUMMARY | 2024-08-06 16:23 | XMS_ITS | Encounter Summary ---
Author Organization [facility] Address [address] [facility] [address] [place] [address] Care Team Providers Care Ball Worker Name Role Phone Tian Chan MD Primary Care Provide r Encounter Details Date Type Department Care Team (Latest Contact Info) Description 10/17/2021 Abstract [facility] CONVERSIONS Dental, Provider, DDS Social History [...] on filedocumented in this encounter Care Teams Ball Worker Relationship Specialty Start Date End Date Tian Chan MD [address] [place] [phone] PCP - General Internal Medicine 10/04/15 documented as of this encounter
--- OUTSIDE RECORDS SUMMARY | 2024-08-06 16:23 | XMS_ITS | Clinical Summary ---
Author Organization [employer] Address [address] [facility] [address] [place] [address] Care Team Providers Care Remote Sensing Technician Name Role Phone Tian Chan MD Primary Care Provide r Allergies Active Allergy Reactions Criticality Noted Date Comments Bupropion Rash Low Nsaids 10/14/2006 Other reaction(s): Hyperkalemia Valproic Acid Other Medications FREESTYLE LITE test stripIndications :Diabetic retinopathy screening INSERT 1 STRIP INTO THE MACHINE 6 TIMES EVERY DAY 200 strip 5 3 Active rOPINIRole (Requip) 1 MG tabletIndication s:Restless leg syndrome TAKE 1 TABLET BY MOUTH EVERY NIGHT AT BEDTIME 30 tablet 5 3 Active HumaLOG 100 UNIT/ML solution 3 Active Insulin Disposable Pump (Omnipod 5 G6 Pod, Gen 5,) misc USE DIRECTED CHANGE EVERY 72 HRS 3 Active lisinopril 40 MG tablet Take 40 mg by mouth in the morning. 3 Active Invega Sustenna 78 MG/0.5ML suspension prefilled syringe ADMINISTER 0.5 ML IN THE MUSCLE 1 TIME A MONTH 3 Active rosuvastatin (Crestor) 40 MG tablet Take 40 mg by mouth in the morning. 3 Active amLODIPine (Norvasc) 2.5 MG tablet Take 2.5 mg by mouth in the morning. 3 Active Blood Glucose Monitoring Suppl (FreeStyle Lite) w/Device kit DIRECTED TO TEST BLOOD SUGAR FOUR TIMES DAILY 3 Active gabapentin (Neurontin) 800 MG tablet Take 800 mg by mouth 3 times daily. 3 Active Blood Pressure Monitor kitIndications:P rimary hypertension Check blood pressure once a week 1 kit 4 Active buPROPion XL (Wellbutrin XL) 300 MG 24 hr tablet Take 300 mg by mouth in the morning. 4 Active mirtazapine (Remeron) 45 MG tablet Take 45 mg by mouth at bedtime. 4 Active QUEtiapine (SEROquel) 200 MG tablet Take 200 mg by mouth at bedtime. 4 Active busPIRone (Buspar) 10 MG tablet Take 10 mg by mouth 2 times daily. 4 Active LORazepam (Ativan) 0.5 MG tablet Take 0.5 mg by mouth if needed in the morning, at noon, and at bedtime for anxiety. 4 Active ondansetron (Zofran) 4 MG tabletIndication s:Nausea Take 1 tablet (4 mg) by mouth every 8 (eight) hours if needed for nausea or vomiting for up to 10 doses. 10 tablet 5 Active benzonatate (Tessalon Perles) 100 MG capsuleIndicatio ns:Influenza A Take 1 capsule (100 mg) by mouth if needed in the morning, at noon, and at bedtime for cough for up to 7 days. Do not crush or chew. 20 capsule 5 08/06/19 25 Active oseltamivir (Tamiflu) 75 MG capsuleIndicatio ns:Influenza A Take 1 capsule (75 mg) by mouth 2 times daily for 5 days. 10 capsule 5 08/04/19 25 Active Problems Problem Noted Date Diagnosed Date Acute pain of right shoulder 10/15/2023 Assessment & Plan (01/16/2024 3:15 PM EDT): Pt with c/o new onset of right shoulder pain x 6 months. 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 On exam he has decreased ROM Etiology ? DJD, Impingement Sx ? Plain films right shoulder showed:Moderate degenerative changes in the acromioclavicular joint. 2. Tiny calcifications in the soft tissues along the superolateral aspect of the humeral head suggestive of rotator cuff pathology. , Cannot take NSAIDS Ortho saw him 12/2023 recommended PT first, no steroid injection given high sugars Assessment & Plan (10/15/2023 11:11 AM EDT): Pt with c/o new onset of right shoulder pain x 6 months. 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 On exam he has decreased ROM Etiology ? DJD, Impingement Sx ? Plan: Plain films right shoulder, Cannot take NSAIDS Ortho for consideration of steroid injection Restless legs syndrome 11/15/2022 Assessment & Plan (11/15/2022 3:01 PM EDT): Pt states [facility] 11/15/2022 Assessment & Plan (11/15/2022 2:11 PM EDT): Colonoscopy with tubular adenoma Mar 2014. Repeat 06/23/2019 showed a rectal papilloma Dr Davey Tubular adenoma 11/14/2022 Assessment & Plan (11/15/2022 2:09 PM EDT): Last colonoscopy 06/23/2019 showed rectal papilloma Diabetic polyneuropathy 11/14/2022 Assessment & Plan (11/15/2022 2:07 PM EDT): Pt with c/o burning pain both legs but more pronounced on his right leg due to Diabetic Neuropathy Pt initially reported great benefit with Neurontin that was increased up to 800 mg po TID. insurance declined to pay for Lyrica. Arterial U/S. 07/09/2019 was unremarkable. I had previously discussed with pt the fact that he had stopped some of the SSRIs he had been before and this seemed to coincide with his worsening Polyneuropathy Pt is taking latuda 20 mg in am and 80 mg at PM feels better prescribed by Endocrinology Last seen 11/13/[address] Garcia 4 month f/u AIN grade II 11/14/2022 Assessment & Plan (01/16/2024 3:13 PM EDT): Evaluated for this by Dr Moore, last seen 01/01/2024. Anoscopy normal will continue to follow with him for repeat colonoscopy Assessment & Plan (10/15/2023 10:57 AM EDT): Evaluated for this by Dr Moore, last seen 12/2022 will continue to follow with him for repeat anoscopy once a year Assessment & Plan (11/15/2022 2:57 PM EDT): Evaluated for this by Dr Moore, last seen 04/12/2021, will continue to follow with him for repeat anoscopy Will refer back Type 1 diabetes mellitus 01/01/2017 Assessment & Plan (01/16/2024 3:12 PM EDT): Pt here for a f/u Pt is under the care of acid patroller , seen 01/08/2024 He is on: Insulin pump as per Endocrinology being treated with the Omnipod 5 pump with Dexcom G6 with good glycemic control . Follow with endocrinology in 3 months' time. Hgb A1c 10/15/2023: 10/15/2023 Eye exam done on: 09/[address] Urvashi Whyte in the past he was seen by Dr Gonzalez (capacity manager) Dx mod Diabetic retinopathy. referred to [facility] Microalbumin checked on: 02/06/2020 was: 30 Pt on an MENDOZA inhibitor. Foot check risk of 1 Pt reports compliance with Asa 81 mg po daily Pt advised to: adhere to diabetic diet check your blood sugars regularly check your feet on a daily basis. Assessment & Plan (10/15/2023 11:13 AM EDT): Pt here for a f/u Pt is under the care of acid patroller , seen 10/09/2023 He is on: Insulin pump as per Endocrinology being treated with the Omnipod 5 pump with Dexcom G6 with good glycemic control . Follow with endocrinology in 3 months' time. Hgb A1c 10/15/2023: 10/15/2023 Eye exam done on: 09/[address] Urvashi Whyte in the past he was seen by Dr Gonzalez (capacity manager) Dx mod Diabetic retinopathy. referred to [facility] Microalbumin checked on: 02/06/2020 was: 30 Pt on an MENDOZA inhibitor. Foot check risk of 1 Pt reports compliance with Asa 81 mg po daily Pt advised to: adhere to diabetic diet check your blood sugars regularly check your feet on a daily basis. Assessment & Plan (11/15/2022 2:06 PM EDT): Pt here for a f/u Pt is under the care of acid patroller , seen 11/13/2022 He is on: Insulin pump as per Endocrinology Hgb A1c 11/15/2022: Eye exam done on: 09/[address] Urvashi Whyte in the past he was seen by Dr Gonzalez (capacity manager) Dx mod Diabetic retinopathy. referred to [facility] Microalbumin checked on: 02/06/2020 was: 30 Pt on an MENDOZA inhibitor. Foot check risk of 1 Pt reports compliance with Asa 81 mg po daily Pt advised to: adhere to diabetic diet check your blood sugars regularly check your feet on a daily basis. Mild intermittent asthma 08/16/2016 Assessment & Plan (11/15/2022 2:10 PM EDT): PFTS suggestive of this Currently doing well Pro-Air HFA prn Hypertension 05/20/2013 Assessment & Plan (01/16/2024 3:25 PM EDT): Here for a f/u He is on a regimen of: Lisinopril 40 mg po daily and Amlodipine 2.5 mg po daily. ( Most recent electrolytes, Bun and Creatinine done on: 03/17/2022 were within normal limits) Elevated mainly because he did not take his medications Plan: Continue current regimen, patient advised to adhere to a low sodium diet, encouraged about medication compliance, counseled about weight loss. f/u 4 months Assessment & Plan (10/15/2023 11:15 AM EDT): Here for a f/u He is on a regimen of: Lisinopril 40 mg po daily and Amlodipine 2.5 mg po daily. ( Most recent electrolytes, Bun and Creatinine done on: 03/17/2022 were within normal limits) Elevated mainly because he did not take his medications Plan: Continue current regimen, patient advised to adhere to a low sodium diet, encouraged about medication compliance, counseled about weight loss. f/u 4 months Assessment & Plan (11/15/2022 2:07 PM EDT): Here for a f/u He is on a regimen of: Lisinopril 40 mg po daily and Amlodipine 2.5 mg po daily. ( Most recent electrolytes, Bun and Creatinine done on: 03/17/2022 were within normal limits) Plan: Continue current regimen, patient advised to adhere to a low sodium diet, encouraged about medication compliance, counseled about weight loss. f/u 4 months Microalbuminuria 12/01/2012 Mixed hyperlipidemia 10/27/2012 Assessment & Plan (11/15/2022 2:08 PM EDT): Here for a f/u Patient with elevated lipids. Most recent lipid profile from: 03/17/2022 shows a total cholesterol of: 114 triglycerides of: 38 HDL of: 60 and LDL of: 47 He is on a regimen of Rosuvastatin 40 mg po daily . . For now will continue with current regimen advised to try to adhere to a low cholesterol diet, counseled and educated about diet and exercise, Patient encouraged to come up with a personal goal for weight loss. Diabetic retinopathy 10/27/2012 Chronic hyperkalemia 10/14/[address] 09/03/2012 Bipolar disorder 03/24/2012 Assessment & Plan (11/15/2022 2:09 PM EDT): Here for a f/u pt is back to seeing a psychiatrist He denies any current SI/HI He has the number for crisis and contracts for safety Cont current med regimen as per [facility] F/u with therapist and psychiatry as scheduled Encounters Date Type Department Care Team Description 08/06/2024 Orders Only GENERIC EXTERNAL DATA DEPARTMENT Provider, Generic External Data 07/30/2024 1:40 PM EST Office Visit [facility] [address] [place] [address] Sandra Babin NP Cough in adult patient (Primary Dx); Influenza A; Nausea; Elevated blood pressure reading in office with diagnosis of hypertension 05/19/2024 3:30 PM EST Nurse Only [facility] [address] [place] [address] from Last 3 Months Immunizations Name Administration Dates Next Due Hep B, adult 04/04/2009 Influenza injectable quadriv alent preservative free 04/10/2022,06/15/2021,02/26/2020 Pneumococcal Polysaccharide PPSV23 02/26/2020,,06/09/2003 TD (adult), 2 Lf tetanus tox oid, preservative free, adsorbed 03/31/2007,08/24/1997 Td (adult), 5 Lf tetanus tox oid, preservative free, adsorbed 01/11/2012 Tdap 05/27/2018 Zoster, Recombinant 05/19/2024,03/05/2024 Family History Medical History Relation Name Comments Coronary artery disease Father Diabetes Father Hypertension Mother Relation Name Status Comments Father Mother Social History Tobacco Use Types Packs/Day Years Used Date Smoking Tobacco: Never Passive Smoke Exposure: Never Smokeless Tobacco: Never Tobacco Cessation:Counseling Given: Not Answered Depression Answer Date Recorded Patient Health Questionnaire-9 Score 2 10/15/2023 Patient Health Questionnaire-9 Score 2 10/15/2023 Last PHQ-9: Questionnaire Data Not on file 0 10/15/2023 Housing Stability Answer Date Recorded What is your housing situation today? I have mary yinka 10/15/[address] you li [...] Orientation Straight 04/16/2022 10 :15 AM EDT Last Filed Vital Signs Vital Sign Reading Time Taken Comments Blood Pressure 146/84 07/30/2024 1:42 PM EST Pulse 99 07/30/2024 1:42 PM EST Temperature 36.8 ??C (98.2 ??F) 07/30/2024 1:42 PM ES T Respiratory Rate 18 07/30/2024 1:42 PM EST Oxygen Saturation 97% 07/30/2024 1:42 PM EST Inhaled Oxygen Concentration - - Weight 71.2 kg (157 lb) 07/30/2024 1:42 PM EST Height 170.2 cm (5' 7 ) 01/16/2024 2:38 PM EDT Body Mass Index 24.59 01/16/2024 2:38 PM EDT Plan of Treatment Health Maintenance Due Date Last Done Comments CT Colonography 1968 FIT DNA/Cologuard 1968 FIT 1968 FOBT 1968 Sigmoidoscopy 1968 Diabetes: Foot Exam 1978 Alcohol/Substance Use Screening 1980 Hepatitis B Vaccines (2 of 3 - 19+ 3-dose series) 05/02/2009 04/04/2009 Pneumococcal Vaccine: 50+ Years (2 of 2 - PCV) 02/25/2021 02/26/2020, 01/01/2008, 06/09/2003 Diabetes: Hemoglobin A1C 01/14/2024 024, 11/15/2022, 01/26/2020, Additional history exists COVID-19 Vaccine ( season) 2024 06/27/2021, 09/06/2020, 08/09/2020 Influenza Vaccine (#1) 2024 , 06/15/2021, 02/26/2020 Colonoscopy 06/23/2024 06/23/2019 Colorectal Cancer Screening 06/23/2024 Depression Screening 10/14/2024 10/15/2023, 10/15/19 24 SDOH Screening 10/14/2024 10/15/2023 Diabetes: Urine Protein Screening 11/18/2024 11/19/2023, 09/14/2023, 03/17/2022, Additional history exists Eye Exam 01/08/2025 01/09/2024, 07/10/2023, 01/09/2024, Additional history exists Tobacco Screening 02/23/2025 02/24/2024 Lipid Panel 04/01/2025 04/01/2024, 06/0 08/2022, 03/17/2022, Additional history exists DTaP/Tdap/Td Vaccines (2 - Td or Tdap) 05/27/2028 05/27/2018, 01/11/2012, 03/31/2007, Additional history exists RSV Patients and Patients Aged 60 years or older (1 - 1-dose 75+ series) 2043 HIV Screening Completed 11/17/2022 Hepatitis C Screening Completed 11/17/2022 Zoster Vaccines Completed 05/19/2024, 03/05/2024 HIB Vaccines Aged Out No longer eligi ble based on patient's age to complete this topic HPV Vaccines Aged Out No longer eligi ble based on patient's age to complete this topic Hepatitis A Vaccines Aged Out No long er eligible based on patient's age to complete this topic IPV Vaccines Aged Out No longer eligi ble based on patient's age to complete this topic Meningococcal Vaccine Aged Out No kvng bernabe eligible based on patient's age to complete this topic RSV under 20 months Aged Out No longe r eligible based on patient's age to complete this topic Rotavirus Vaccines Aged Out No longer eligible based on patient's age to complete this topic Procedures Procedure Name Priority Date/Time Associated Diagnosis Comments GLUCOSE, WHOLE BLOOD Routine 08/06/2024 3:27 PM EST POCT RAPID COVID ANTIGEN Routine 07/30/2024 1:53 PM EST Cough in adult patient POCT INFLUENZA A (ID NOW RAPID MOLECULAR) Routine 07/30/2024 1:53 PM EST Cough in adult patient POCT INFLUENZA B (ID NOW RAPID MOLECULAR) Routine 07/30/2024 1:53 PM EST Cough in adult patient LIPID PANEL, STANDARD Routine 04/01/2024 3:45 PM EDT Primary hypertension ALBUMIN, RANDOM URINE W/CREATININE Routine 11/19/2023 12:59 PM EDT POCT GLYCATED HEMOGLOBIN, TOTAL Routine 10/15/2023 11:06 AM EDT Type 1 diabetes mellitus with diabetic polyneuropathy (CMS/HCC) HEPATITIS C ANTIBODY REFLEX Routine 11/17/2022 10:25 AM EDT HIV ANTIBODY/ANTIGEN (MS DPH) Routine 11/17/2022 10:25 AM EDT HM COLONOSCOPY Routine 06/23/2019 from Last 3 Months or Most Recently Relevant to Health Maintenance Results * Glucose, Whole Blood (08/06/2024 3:27 PM EST) [facility] Glucose, Whole Blood 102 60 - 115 mg/dL [facility] Comment:METER #: [id number] 5Testing performed in the Endocrinology Department [address] , [address], [facility]. 08/06/2024 3:2 7 PM EST 08/06/2024 3:34 PM EST us Generic External Data Provider LAB BLOOD ORDERAB LES Final Result Performing Organization Address City/[facility]/ZIP Co de Phone Number [facility] [address] [place] [phone] * Influenza B (ID NOW Rapid Molecular) (07/30/2024 1:53 PM EST) [facility] Influenza B Negative Negative, Indeterminate [facility] Swab 07/30/2024 1:53 PM EST Sandra Mackm OUTSIDE ENERGY SALES REPRESENTATIVES POINT OF CARE TEST ENTER/EDIT O RDERABLES Final Result Performing Organization Address [facility]/ZIP Co de Phone Number [facility] [address] [place] [phone] * (ABNORMAL) Influenza A (ID NOW Rapid Molecular) (07/30/2024 1:53 PM EST) Pathologist [facility] [place] Influenza A Positive( A) Negative, Indeterminate [facility] Swab 07/30/2024 1:53 PM EST Sandra Babin OUTSIDE ENERGY SALES REPRESENTATIVES POINT OF CARE TEST ENTER/EDIT O RDERABLES Final Result [facility] [address] [place] [phone] * POCT Rapid COVID Ag (07/30/2024 1:53 PM EST) Rapid COVID Ag Negative Swab 07/30/2024 1:53 PM EST Sandra Babin OUTSIDE ENERGY SALES REPRESENTATIVES POINT OF CARE TEST ENTER/EDIT O RDERABLES Final Result * Lipid Panel, Standard (04/01/2024 3:45 PM EDT) Triglycerides 46 <150 mg/dL [facility] Comment:Desirable Triglyceri de: less than 150 mg/dLBorderline High Triglyceride 150-199 mg/dLHigh Triglyceride: 200-499 mg/dLVery High Triglyceride: greater than or equal to 5OO mg/dL Cholesterol 140 <200 mg/dL [facility] Comment:Desirable Cholestero l: less than 200 mg/dLBorderline High Cholesterol: 200-239 mg/dLHigh Cholesterol: greater than 239 mg/dL LDL Cholesterol Calculated 61 <100 mg/dL [facility] Comment:Desirable LDL: less than 100 mg/dLNear Optimal/Above Optimal LDL: 110- 129 mg/dLBorderline High LDL: 130-159 mg/dLHigh LDL: 160-189 mg/dLVery High LDL: greater than or equal to 190 mg/dL HDL Cholesterol 70 >40 mg/dL [facility] Comment:Desirable HDL: great er than 40 mg/dL Note: This HDL assay may give artificially low results in patients with liver disease. Blood Venous blood specimen / Unknown 04/01/2024 3:45 PM EDT 04/01/2024 4:20 PM EDT Tian Spicer MD LAB BLOOD ORDERABLES Final Result Performing Organization Address [facility] Co de Phone Number [facility] [address] [place] [phone] * (ABNORMAL) Albumin, Random Urine W/Creatinine (11/19/2023 12:59 PM EDT) Pathologist [facility] [place] Creatinine, Urine 20.91 mg/dL [facility] Microalbumin Urine 18.0 mg/L [facility] [place] [facility] Microalbum Creatinine Ratio Ur 86.0(H) <30 ug/mg cr [facility] Comment:Albumin/Creatinine R atio Reference Ranges: Normal: < 30 ug/mg creatinine Microalbuminuria: 30 - 300 ug/mg creatinineClinical Albuminuria: > 300 ug/mg creatinine 11/19/2023 12:5 9 PM EDT 11/19/2023 1:55 PM EDT Generic External Data Provider LAB URINE ORDERAB LES Final Result Performing Organization Address [facility] Co de Phone Number [facility] [address] [place] [phone] * (ABNORMAL) POCT HGB A1C (10/15/2023 11:06 AM EDT) [facility] Hemoglobin A1C 7.0(A) 4.0 - 6.0 % QC Media Lot # [id number] Lot# Expiration Date Blood 10/15/2023 11:0 6 AM EDT us Tian Spicer MD POINT OF CARE TEST EN TER/EDIT ORDERABLES Final Result * Hepatitis C Antibody Reflex (11/17/2022 10:25 AM EDT) Pathologist [facility] [place] Hepatitis C Antibody Nonreactive Nonreactive [facility] Comment:Antibodies to HCV no t detected; does not exclude early acuteHCV infection. 11/17/2022 10:2 5 AM EDT 11/17/2022 10:25 AM EDT [facility] External Provider LAB BLO OD ORDERABLES Final Result Performing Organization Address [facility] Co de Phone Number [facility] [address] [place] [phone] * HIV Ab/Ag (MICHAEL ROMERO) (11/17/2022 10:25 AM EDT) HIV AB/AG Nonreactive Nonreactive [facility] Comment:HIV-1 p24 Ag and/or HIV-1/HIV-2 Ab not detected.A test result that is nonreactive does not exclude thepossibility of exposure to or infection with HIV-1 and/orHIV-2. Nonreactive results in this assay for individualswith prior exposure to HIV-1 and/or HIV-2 may be due toantigen and antibody levels that are below the limit ofdetection of this assay.The [employer] Hand HIV Ag/Ab Combo assay result andsupplemental assay results should be interpreted inconjunction with the patient's clinical presentation,history and other laboratory results. If the results areinconsistent with clinical evidence, additional testing issuggested to confirm the result. 11/17/2022 10:2 5 AM EDT 11/17/2022 10:25 AM EDT [facility] External Provider LAB BLO OD ORDERABLES Final Result Performing Organization Address [facility] Co de Phone Number [facility] [address] [place] [phone] * Hm Colonoscopy (06/23/2019) Colonoscopy Normal Normal 06/23/2019 Narrative Gloria Rai - 06/23/2019 Recommended 5 year follow up Historical Provider HEALTH MAINTENANCE Edited Result - Final from Last 3 Months or Most Recently Relevant to Health Maintenance Insurance [facility] , [address] [place] [address] Care Teams Remote Sensing Technician Relationship Specialty Start Date End Date Tian Chan MD [address] [place] [phone] PCP - General Internal Medicine 10/04/15
--- OUTSIDE RECORDS SUMMARY | 2024-08-06 16:23 | XMS_ITS | Encounter Summary ---
Author Organization [facility] Address [address] [facility] [address]t [place] [address] Care Team Providers Care Crm Marketing Specialist Name Role Phone Tian Chan MD Primary Care Provide r Encounter Details Date Type Department Care Team ([facility] st Contact Info) Description 10/25/2022 Abstract [facility] [address] [place] [address] Tian Chan MD [address] [place] [address] Social History Tobacco Use Types Packs/Day Years [...] on filedocumented in this encounter Care Teams Crm Marketing Specialist Relationship Specialty Start Date End Date Tian Chan MD [address] [place] [address] PCP - General Internal Medicine 10/04/15 documented as of this encounter
--- OUTSIDE RECORDS SUMMARY | 2024-08-06 16:23 | XMS_ITS | Encounter Summary ---
Author Organization [employer] [facility] Address [address] [facility] [address] [place] [address] Care Team Providers Care Manager School Name Role Phone Tian Chan MD Primary Care Provide r Encounter Details Date Type Department Care Team (Late st Contact Info) Description 08/06/2024 Orders Only GENERIC EXTERNAL DATA DEPARTMENT Provider, Generic External Data Social History Tobacco Use Types Packs/Day Years [...] WHOLE BLOOD Routine 08/06/2024 3:27 PM EST documented in this encounter Results * Glucose, Whole Blood (08/06/2024 3:27 PM EST) Glucose, Whole Blood 102 60 - 115 mg/dL [facility] Comment:METER #: [id number] 5Testing performed in the Endocrinology Department [address] , [address], [facility]. 08/06/2024 3:27 PM EST 08/06/2024 3:34 PM EST us Generic External Data Provider LAB BLOOD ORDERAB LES Final Result Performing Organization Address City/State/[facility] Co de Phone Number [facility] [address] [place] [phone] documented in this encounter Visit Diagnoses Not on filedocumented in this encounter Additional Health Concerns Assessment Noted Time PHQ-9 Depression Total Score: 2 10/15/19 24 10:54 AM EDT documented as of this encounter Care Teams Manager School Relationship Specialty Start Date End Date Tian Chan MD [address] [place] [phone] PCP - General Internal Medicine 10/04/15 documented as of this encounter
== END 2024-08-06 16:03 | disposition home or self-care (01) ==
PROVIDERS: PCP Internal Medicine; Visit Provider Nurse Practitioner Adult Health
DX: E10.649 Type 1 diabetes mellitus with hypoglycemia without coma (principal); E10.65 Type 1 diabetes mellitus with hyperglycemia
CPT/HCPCS: 99215

== ENCOUNTER → 2024-08-06 15:19 | Outpatient (BNVA) | payer OTHER, MEDICAID, SELFPAY | PROVIDERS: PCP Internal Medicine; Visit Provider Nurse Practitioner Adult Health | DX: E10.65 Type 1 diabetes mellitus with hyperglycemia (principal); E10.319 Type 1 diabetes mellitus with unspecified diabetic retinopathy without macular edema; E10.40 Type 1 diabetes mellitus with diabetic neuropathy, unspecified; Z96.41 Presence of insulin pump (external) (internal) | CPT/HCPCS: 82947; 83036 ==

== ENCOUNTER 2024-11-05 15:52 | Outpatient (AMB) | payer OTHER, MEDICAID, SELFPAY ==
--- NOTE | 2024-11-05 12:46 | A.OFFVIS_ITS ---
Vital Signs 11/05/24 15:57 Height 5 ft 5 in Weight 168 lb 10.458 oz BMI 28.1 BP 144/70 H Blood Pressure Location Rt brachial Position Sitting Pulse 76 Pulse Source Pulse Oximeter Pulse Oximetry (%) 97 Oxygen Delivery Method Room Air Intake Visit Reasons: T1DM Intake Note: Patient presents today for a follow-up on Type 1 Diabetes Mellitus: Last Diabetic Eye exam: 01/09/2024 Last Podiatry Exam: Does not see a Licensed Nursing Assistant Most recent HbA1c: 7.0% 11/05/2024 Random Glucose- 181 mg/dL, Today Barometers Calibrator Required: No Accompanied by: Self / Same As Patient Allergies almond Allergy (Severe, Verified 11/05/24 15:58) THROAT CLOSES UP divalproex sodium [From DEPAKOTE] Allergy (Unknown, Verified 11/05/24 15:58) HIVES HPI Comments Details: Patient is 54-year-old male with DM type 1 diagnosed at 7 years of age who presents for management of diabetes. He was last seen 08/06/24 with a A1C of 6.9% and by Brittani DIAZ 07/30/24 at which time his insulin carbohydrate ratio was adjusted in the evening to prevent postprandial lows. Past medical history: Diabetes type 1, bipolar disorder hypertension hyperlipidemia Micro and macrovascular complications: Retinopathy, nephropathy Diabetes medications: Omnipod pump 5 and Dexcom G 6 with Humalog insulin. In the past he has been eating and entering in the pump an extensive amount of carbs in the evening. Prior 24 recall shows not enough protein intake during the day and excess carbs in the cecy. He is working on this. Has difficulty on the week end when he purchases two loaves of sao tomean water bread. 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 Next screen 12/09 Machine Sizer - CDE education: followed by CDE Licensed Nursing Assistant: Has retinopathy: Ophthalmology evaluation: goes annually last exam January 2024 no changes in retinopathy prior h/o laser x 3 Backup insulin plan Lantus 17 units Usual doses of Humalog pre meal settings not confirmed today Basal rate(s) (units/hour) : 12 AM to 12 AM 0.7 units / hr 2 PM? to 12 AM ? 1 units / hr? Bolus setting Insulin Carbohydrate Ratio (s) 12 AM? to? 11 AM? 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 Diabetic nephropathy associated with type 1 diabetes mellitus Diabetic polyneuropathy associated with type 1 diabetes mellitus Diabetes type 1, uncontrolled AIN grade II Hyperlipidemia Hypertension Diabetes mellitus Surgical History History of excision of mass (~02/11/23) History of excision of lesion History of colonoscopy (~2013) Family History Father History of hypertension Mother History of diabetes mellitus History of cardiovascular disorder History of hypertension Son History of muscular dystrophy Maternal Uncle History of prostate cancer Social History Household Members: Spouse Alcohol intake: current Alcohol intake frequency: holidays/special occasions only Patient Tobacco Use Status: Never used Tobacco e-Cigarette/Vaping Use: Currently Using Substance Use Type: Former Substance User and Marijuana Current occupational status: employed 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
--- OUTSIDE RECORDS SUMMARY | 2024-11-05 15:55 | XMS_ITS | Clinical Summary ---
Author Organization [employer] Address [address] [place] [address] Care Team Providers Care Cryptologic Technician Name Role Phone Tian Chan MD Primary Care Provide r Allergies Active Allergy Reactions Criticality Noted Date Comments Bupropion Rash Low Nsaids 10/14/2006 Other reaction(s): Hyperkalemia Valproic Acid Other Medications FREESTYLE LITE test stripIndications: Diabetic retinopathy screening INSERT 1 STRIP INTO THE MACHINE 6 TIMES EVERY DAY 200 strip 5 3 Active rOPINIRole (Requip) 1 MG tabletIndications :Restless leg syndrome TAKE 1 TABLET BY MOUTH [...] times daily. 3 Active Blood Pressure Monitor kitIndications:Pr kassandra hypertension Check blood pressure once a week [...] anxiety. 4 Active ondansetron (Zofran) 4 MG tabletIndications :Nausea Take 1 tablet (4 mg) by mouth every 8 (eight) hours if needed for nausea or vomiting for up to 10 doses. 10 tablet 5 Active Active Problems Problem Noted Date Diagnosed Date Acute pain of right shoulder 10/15/2023 Assessment & Plan (01/16/2024 3:15 PM EDT): Pt with c/o new onset of right shoulder pain x 6 months. 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 On [...] x 6 months. 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 On exam he has decreased ROM Etiology ? DJD, Impingement Sx ? Plan: Plain films right shoulder, Cannot take NSAIDS Ortho for consideration of steroid injection Restless legs syndrome 11/15/2022 Assessment & Plan (11/15/2022 3:01 PM EDT): Pt states it has resolved no longer on [facility] care 11/15/2022 Assessment & Plan (11/15/2022 [...] f/u Pt is under the care of branding machine tender , seen 01/08/2024 He is on: Insulin pump as per Endocrinology being treated with the Omnipod 5 pump with Dexcom G6 with good glycemic control . Follow with endocrinology in 3 months' time. Hgb A1c 10/15/2023: 10/15/2023 Eye exam done on: 09/[address] Urvashi Whyte in the past he was seen by Dr Gonzalez (bag printer) Dx mod Diabetic retinopathy. referred to [facility] Microalbumin checked on: 02/06/2020 was: 30 Pt on an MENDOZA inhibitor. Foot check risk of 1 Pt reports compliance with Asa 81 mg po daily Pt advised to: adhere to diabetic diet check your blood sugars regularly check your feet on a daily basis. Assessment & Plan (10/15/2023 11:13 AM EDT): Pt here for a f/u Pt is under the care of branding machine tender , seen 10/09/2023 He is on: Insulin pump as per Endocrinology being treated with the Omnipod 5 pump with Dexcom G6 with good glycemic control . Follow with endocrinology in 3 months' time. Hgb A1c 10/15/2023: 10/15/2023 Eye exam done on: 09/[address] Urvashi Whyte in the past he was seen by Dr Gonzalez (bag printer) Dx mod Diabetic retinopathy. referred to [facility] Microalbumin checked on: 02/06/2020 was: 30 Pt on an MENDOZA inhibitor. Foot check risk of 1 Pt reports compliance with Asa 81 mg po daily Pt advised to: adhere to diabetic diet check your blood sugars regularly check your feet on a daily basis. Assessment & Plan (11/15/2022 2:06 PM EDT): Pt here for a f/u Pt is under the care of branding machine tender , seen 11/13/2022 He is on: Insulin pump as per Endocrinology Hgb A1c 11/15/2022: Eye exam done on: 09/[address] Urvashi Whyte in the past he was seen by Dr Gonzalez (bag printer) Dx mod Diabetic retinopathy. referred to [facility] Microalbumin checked on: 02/06/2020 was: 30 [...] safety Cont current med regimen as per [facility] F/u with therapist and psychiatry as scheduled Immunizations Immunization Administration Dates Next Due Hep B, adult [...] 01/16/2024 2:38 PM EDT Plan of Treatment Upcoming Encounters Date Type Department Care Team (Late st Contact Info) Description 11/19/2024 3:00 PM EDT Office Visit [facility] [address] [place] [address] Tian Chan MD [address] [place], [place] [phone] Health Maintenance Due Date Last Done Comments CT Colonography 1968 FIT DNA/Cologuard 1968 FIT 1968 FOBT 1968 Sigmoidoscopy 1968 Disability Screening 1968 Diabetes: Foot Exam 1978 Alcohol/Substance Use [...] Additional history exists Eye Exam 01/08/2025 01/09/2024, 12/16, 01/09/2024, Additional history exists Tobacco Screening 02/23/2025 [...] patient's age to complete this topic Meningococcal B Vaccine Aged Out No l onger eligible based on patient's age to complete [...] Procedure Name Priority Date/Time Associated Diagnosis Comments LIPID PANEL, STANDARD Routine 04/01/2024 3:45 PM EDT Primary hypertension ALBUMIN, RANDOM URINE W/CREATININE Routine 11/19/2023 12:59 PM EDT POCT GLYCATED HEMOGLOBIN, TOTAL Routine 10/15/2023 11:06 AM EDT Type 1 diabetes mellitus with diabetic polyneuropathy (CMS/HCC) HEPATITIS C ANTIBODY REFLEX Routine 11/17/2022 10:25 AM EDT HIV ANTIBODY/ANTIGEN ([place] [facility]) Routine 11/17/2022 10:25 AM EDT HM COLONOSCOPY Routine 06/23/2019 from Last 3 Months or Most Recently Relevant to Health Maintenance Results * Lipid Panel, Standard (04/01/2024 3:45 PM EDT) Triglycerides 46 <150 mg/dL [facility] Comment:Desirable Triglyceri de: less than 150 mg/dLBorderline High Triglyceride 150-199 mg/dLHigh Triglyceride: 200-499 mg/dLVery High Triglyceride: greater than or equal to 5OO mg/dL Cholesterol 140 <200 mg/dL [facility] Comment:Desirable Cholestero l: less than 200 mg/dLBorderline High Cholesterol: 200-239 mg/dLHigh Cholesterol: greater than 239 mg/dL LDL Cholesterol Calculated 61 <100 mg/dL [facility] Comment:Desirable LDL: less than 100 mg/dLNear Optimal/Above Optimal LDL: 110- 129 mg/dLBorderline High LDL: 130-159 mg/dLHigh LDL: 160-189 mg/dLVery High LDL: greater than or equal to 190 mg/dL HDL Cholesterol 70 >40 mg/dL [facility] Comment:Desirable HDL: great er than 40 mg/dL Note: This HDL assay may give artificially low results in patients with liver disease. Blood Venous blood specimen / Unknown 04/01/2024 3:45 PM EDT 04/01/2024 4:20 PM EDT us Tian Spicer MD LAB BLOOD ORDERABLES Final Result Performing Organization Address [facility] Co de Phone Number [facility] [address] [place] [phone] * (ABNORMAL) Albumin, Random Urine W/Creatinine (11/19/2023 12:59 PM EDT) Creatinine, Urine 20.91 mg/dL [facility] Microalbumin Urine 18.0 mg/L [facility] Microalbum Creatinine Ratio Ur 86.0(H) <30 ug/mg cr [facility] Comment:Albumin/Creatinine R atio Reference Ranges: Normal: < 30 ug/mg creatinine Microalbuminuria: 30 - 300 ug/mg creatinineClinical Albuminuria: > 300 ug/mg creatinine 11/19/2023 12:5 9 PM EDT 11/19/2023 1:55 PM EDT us Generic External Data Provider LAB URINE ORDERAB LES Final Result Performing Organization Address [facility] Co de Phone Number [facility] [address] [place] [address] [phone] * (ABNORMAL) POCT HGB A1C (10/15/2023 11:06 AM EDT) Hemoglobin A1C 7.0(A) 4.0 - 6.0 % QC Media Lot # [id number] Lot# Expiration Date [id number] Blood 10/15/2023 11:0 6 AM EDT Result [facility] Tian Spicer MD POINT OF CARE TEST EN TER/EDIT ORDERABLES Final Result * Hepatitis C Antibody Reflex (11/17/2022 10:25 AM EDT) Hepatitis C Antibody Nonreactive Nonreactive [facility] Comment:Antibodies to HCV no t detected; does not exclude early acuteHCV infection. 11/17/2022 10:2 5 AM EDT 11/17/2022 10:25 AM EDT Result [facility] External Provider LAB BLO OD ORDERABLES Final Result [facility] [address] [place] [phone] * HIV Ab/Ag ([facility]) (11/17/2022 10:25 AM EDT) HIV AB/AG Nonreactive Nonreactive [facility] Comment:HIV-1 p24 Ag and/or HIV-1/HIV-2 Ab not detected.A test result that is nonreactive does not exclude thepossibility of exposure to or infection with HIV-1 and/orHIV-2. Nonreactive results in this assay for individualswith prior exposure to HIV-1 and/or HIV-2 may be due toantigen and antibody levels that are below the limit ofdetection of this assay.[facility] HIV Ag/Ab Combo assay result andsupplemental assay results should be interpreted inconjunction with the patient's clinical presentation,history and other laboratory results. If the results areinconsistent with clinical evidence, additional testing issuggested to confirm the result. 11/17/2022 10:2 5 AM EDT 11/17/2022 10:25 AM EDT [facility] External Provider LAB BLO OD ORDERABLES Final Result [facility] [address] [place] [phone] * Colonoscopy (06/23/2019) Colonoscopy Normal Normal 06/23/2019 Asmita Gloria Rai - 06/23/2019 Recommended 5 year follow up us Historical Provider HEALTH MAINTENANCE Edited Result - Final from Last 3 Months or Most Recently Relevant to Health Maintenance Insurance [facility] Care Teams Cryptologic Technician Relationship Specialty Start Date End Date Tian Chan MD [address] [place] [phone] PCP - General Internal Medicine 10/04/15
[2024-11-05 15:57] VITALS: BP 144/70; PULSE 76; O2SAT 97; BMI 28.1
[2024-11-05 16:08] LABS: Glucose, Whole Blood 181 mg/dL (60-115)
== END 2024-11-05 16:25 | disposition home or self-care (01) ==
LOC: HO.ENCR 15:52
PROVIDERS: PCP Internal Medicine; Visit Provider Nurse Practitioner Adult Health
DX: E10.65 Type 1 diabetes mellitus with hyperglycemia (principal)

== ENCOUNTER → 2024-11-05 15:52 | Outpatient (BNVA) | payer OTHER, MEDICAID, SELFPAY | PROVIDERS: PCP Internal Medicine; Visit Provider Nurse Practitioner Adult Health | DX: E10.65 Type 1 diabetes mellitus with hyperglycemia (principal) | CPT/HCPCS: 82947; 83036 ==

== ENCOUNTER 2025-02-16 15:35 | Outpatient (AMB) | payer OTHER, MEDICAID, SELFPAY ==
[2025-02-16 15:38] VITALS: BP 140/56; PULSE 64; O2SAT 98; BMI 26.7
--- NOTE | 2025-02-16 15:38 | A.OFFVIS_ITS ---
Vital Signs 02/16/25 15:38 Height 5 ft 5 in Weight 160 lb 7.944 oz BMI 26.7 BP 140/56 H Blood Pressure Location Rt brachial Position Sitting Pulse 64 Pulse Source Pulse Oximeter Pulse Oximetry (%) 98 Oxygen Delivery Method Room Air Intake Visit Reasons: T1DM (pump patient) Intake Note: Patient present today for Type 1 Diabetes Mellitus Last Diabetic eye exam: Last exam was about a year ago. Last Podiatry Visit: Doesn't have one Random Glucose: 124 mg/dl HgA1C: 6.9% Business Intelligence Developer Required: No Accompanied by: Self / Same As Patient Allergies almond Allergy (Severe, Verified 02/16/25 15:42) THROAT CLOSES UP divalproex sodium (From DEPAKOTE) Allergy (Unknown, Verified 02/16/25 15:42) HIVES Medication List - Last Reconciled 02/16/25 by Sylvie Yung MD acetone (urine) test (Ketone Urine Test strips) As directed glucose over 250, illness, nausea, vomiting blood sugar diagnostic (FreeStyle Lite Strips) DIRECTED TO TEST BLOOD SUGAR FOUR TIMES DAILY blood-glucose meter (FreeStyle Lite Meter kit) USE DIRECTED TO TEST BLOOD SUGAR FOUR TIMES DAILY. blood-glucose sensor (Dexcom G6 Sensor device) As directed every 10 days blood-glucose transmitter (Dexcom G6 Transmitter device) As directed every 90 days gabapentin 800 mg PO BID 30 days MDD 1600 glucagon 3 mg/actuation (Baqsimi) 3 mg intranasal BID PRN 30 days MDD 6 mg insulin glargine (Lantus U-100 Insulin) 16 units (0.16 mL) subcut DAILY PRN 30 days MDD 18 units insulin lispro up to 100 units via continuous infusion via insulin pump subcutaneously daily; 30 days insulin pump cart,auto,BT-cntr (Omnipod 5 G6 Intro Kit (Gen 5) subcutaneous cartridge with controller) As directed insulin pump cart,automated,BT (Omnipod 5 G6 Pods (Gen 5) subcutaneous cartridge) As directed change every 72 hrs insulin pump cart,cont inf,BT (Omnipod Dash Pods (Gen 4) subcutaneous cartridge) Replace pod every 48 hours insulin syringes (disposable) As directed injects 4 X/day lancets (FreeStyle Lancets) As directed tests 4X/day lisinopril 40 mg PO DAILY 90 days rosuvastatin 40 mg PO DAILY 90 days HPI Comments Details: Patient is 54-year-old male with DM type 1 diagnosed at 7 years of age who presents for management of diabetes. Last seen by Marilynn Valderrama APRN October 2024 A1c 08/06/24 6.9% 02/16/25 6.9 % Past medical history: Diabetes type 1, bipolar disorder hypertension hyperlipidemia Micro and macrovascular complications: Last eye visit , in Jan 2024, a jodie ago, has hx of laser x 3, has Retinopathy, has to schedule appt, told him mild neuropathy sx , improved. takes gabapentine BID nephropathy: egfr > 60 in 2023, 12/08 microalbuminuria ratio 86 no stroke or heart attack Diabetes medications: Omnipod pump 5 and Dexcom G 6 with Humalog insulin. 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 Next screen 12/09 due Manufacturing Design Engineer - CDE education: followed by CDE last seen Jun 2024 Backup insulin plan Lantus 17 units Usual doses of Humalog pre meal Basal rate(s) (units/hour) : 12 AM to 12 AM 0.7 units / hr 2 PM? to 12 AM ? 1 units / hr? Bolus setting Insulin Carbohydrate Ratio (s) 12 AM? to? 11 AM? 1:14 11 AM to 3 PM 1:14 PM to 12 AM 1:14 Correction Factor / Sensitivity Factor 12 AM-5:30 AM 1:56 5:30 AM to 12 AM 1:48 Target: 110 mg/dL Target threshold 110 mg/dL Physical exam General: sitting comfortably in no acute distress HEENT: normocephalic/atraumatic, , moist oral mucosa Neck: supple, Cardiac: normal heart sounds Pulm: normal breath sounds B/L, no added breath sounds Abd: not distended, no tenderness Extremities: no edema, no signs of myxedema Neuro: AAO x3, Speech: normal, no facial droop, moving all 4 extremities Skin: no rash Laboratory Tests 11/19/23 04/01/24 11/05/24 12:59 15:45 16:11 Creatinine 0.88 Estimated GFR > 60 Hgb A1c (Clinic) 7.0 H AST 29 ALT 29 Triglycerides 46 Cholesterol 140 LDL Cholesterol, Calc 61 HDL Cholesterol 70 Urine Creatinine 20.91 Urine Microalbumin 18.0 Microalb/Creat Ratio 86.0 H [facility] Medical History Mass of buttock History of anal dysplasia Sleep apnea Vitamin D deficiency 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 Diabetic nephropathy associated with type 1 diabetes mellitus Diabetic polyneuropathy associated with type 1 diabetes mellitus Diabetes type 1, uncontrolled AIN grade II Hyperlipidemia Hypertension Diabetes mellitus Surgical History History of excision of mass (~02/11/23) History of excision of lesion History of colonoscopy (~2013) Family History Father History of hypertension Mother History of diabetes mellitus History of cardiovascular disorder History of hypertension Son History of muscular dystrophy Maternal Uncle History of prostate cancer Social History Household Members: Spouse Alcohol intake: current Alcohol intake frequency: holidays/special occasions only Patient Tobacco Use Status: Never used Tobacco e-Cigarette/Vaping Use: Currently Using Substance Use Type: Former Substance User and Marijuana Current occupational status: employed 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, 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 Physical Exam Vital Signs: Last Vital Signs Pulse 64 02/16/25 15:38 BP 140/56 H 02/16/25 15:38 Pulse Ox 98 02/16/25 15:38 Oxygen Delivery Method Room Air 02/16/25 15:38 BMI result Body Mass Index 26.7 Office Procedures Glucose Monitoring Details Details: see [facility] [address] - Glucose monitoring, continuous-physician I&R Procedure code (CPT) selection complete Results AMB Hemoglobin A1c AMB Hemoglobin A1c 6.9 % Last Edit by ATIF Menchaca on 02/16/25 16:03 Results Reviewed Results Reviewed: Laboratory Last Values Glucose (Clinic) 124 mg/dL (60-115) H 02/16/25 15:45 Hgb A1c (Clinic) 6.9 % (4.0-6.0) H 02/16/25 15:48 Assessment & Plan Assessment & Plan (1) Diabetes type 1, uncontrolled: Code(s): E10.65 - Type 1 diabetes mellitus with hyperglycemia Category: Medical Qualifiers: Glycemic state: with hyperglycemia Qualified Code(s): E10.65 - Type 1 diabetes mellitus with hyperglycemia Plan: 54-year-old with type 1 diabetes mellitus with neuropathy, retinopathy on an insulin pump Omnipod 5 with Dexcom G6 with Humalog U 100 with the an A1c in the office today of 6.9 %. Pump data downloaded and it does show that he keeps switching from automated mode to manual mode because he tries to over correct for his meals. Mostly it is because he is hyperglycemic because he did not enter the carbs on time and then he becomes hypoglycemic after. I discussed with the him importance of pre bolusing in entering carbs consistently and letting the auto mode do its function. No pump settings changed today. 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 He is also potentially interested in switching to Dexcom G7, I will have him schedule an appointment with the educator. Overdue for labs, ordered today. Overdue for eye appointment, reiterated importance of making eye appointment, has a history of retinopathy with a history of laser. The patient had an opportunity to ask questions regarding treatment plan. The patient expressed understanding and agreement with the above treatment plan. The patient is aware they should contact our office by phone for worsening glucose readings or for any low blood sugars which may warrant a change in diabetes medication. Compliance is encouraged with medications and any followup testing/consults which may have been ordered. Plan I spent 30 minutes in reviewing the record, seeing the patient and documenting in the medical record. Orders: Orders AMB Hemoglobin A1c Today E10.65 - Type 1 diabetes mellitus with hyperglycemia, Z13.9 - Encounter for screening, unspecified Thyroid Stimulating Hormone Today E10.65 - Type 1 diabetes mellitus with hyperglycemia Free T4 (Free Thyroxine) Today E10.65 - Type 1 diabetes mellitus with hyperglycemia Lipid Panel Today E10.65 - Type 1 diabetes mellitus with hyperglycemia Microalbumin, Random (w Creat) Today E10.65 - Type 1 diabetes mellitus with hyperglycemia Creatinine Today E10.65 - Type 1 diabetes mellitus with hyperglycemia Complete Blood Count no Diff Today E10.65 - Type 1 diabetes mellitus with hyperglycemia AMB Glucose Monitoring Today E10.65 - Type 1 diabetes mellitus with hyperglycemia Aspartate Amino Transferase Today E10.65 - Type 1 diabetes mellitus with hyperglycemia Alanine Aminotransferase Today E10.65 - Type 1 diabetes mellitus with hyperglycemia Medications: New alcohol swabs 2 pad topically; every 3 days for insulin pump 200 ea 5RF Changed From insulin syringes (disposable) As directed injects 4 X/day 500 ea 4RF To insulin syringes (disposable) As directed injects 4 X/day in case of pump failure 500 ea 4RF From insulin pump cart,automated,BT (Omnipod 5 G6 Pods (Gen 5) subcutaneous cartridge) As directed change every 72 hrs 30 ea 6RF E10.21 - Type 1 diabetes mellitus with diabetic nephropathy To insulin pump cart,automated,BT As directed change every 72 hrs 30 ea 6RF E10.21 - Type 1 diabetes mellitus with diabetic nephropathy Refilled glucagon 3 mg/actuation (Baqsimi) 3 mg intranasal BID PRN 2 ea 1RF unresponsive hypoglycemia 30 days MDD 6 mg E10.65 - Type 1 diabetes mellitus with hyperglycemia insulin glargine (Lantus U-100 Insulin) 16 units (0.16 mL) subcut DAILY PRN 10 mL 1RF pump failure 30 days MDD 18 units E10.65 - Type 1 diabetes mellitus with hyperglycemia insulin lispro up to 100 units via continuous infusion via insulin pump subcut aneously daily; 30 mL 6RF 30 days lisinopril 40 mg PO DAILY 90 tabs 4RF 90 days I10 - Essential (primary) hypertension rosuvastatin 40 mg PO DAILY 90 tabs 4RF 90 days E78.5 - Hyperlipidemia, unspecified Coding Level of Care Code Est Pt Level 4 (49357) Diagnoses Uncontrolled type 1 diabetes mellitus with hyperglycemia E10.65 Glycemic state: with hyperglycemia CPT Codes Details - CPT: 21054 - Glucose monitoring, continuous-physician I&R ([id number]) Time Spent (min) 30
[2025-02-16 16:03] LABS: Glucose, Whole Blood 124 mg/dL (60-115)
--- OUTSIDE RECORDS SUMMARY | 2025-02-16 16:34 | XMS_ITS | Encounter Summary ---
Author Organization [employer] Address [address] [place] [address] Care Team Providers Care Billing Rep Name Role Phone Tian Chan MD Primary Care Provide r Encounter Details Date Type Department Care Team (Latest Contact Info) Description 10/17/2021 Abstract [facility] CONVERSIONS Dental, Provider, DDS Social History Tobacco Use Types Packs/Day Years Used Date Smoking Tobacco: Never Assessed Sex and Gender Information Value Date Recorded Sex Assigned at Male 04/16/2022 10:15 AM EDT Legal Sex Male 10:15 AM EDT Gender Identity Male 04/16/2022 10:15 AM EDT Sexual Orientation Straight 04/16/2022 10 :15 AM EDT documented as of this encounter Plan of Treatment Upcoming Encounters Date Type Department Care Team (Late st Contact Info) Description 03/18/2025 1:00 PM EDT Office Visit [facility] MEDICINE [address] [place] [address] Tian Chan MD [address] [place] [address] 05/19/2025 2:30 PM EST Office Visit [facility] OPTOMETRY [address] [place] [address] Urvashi Ring, OD [address] [place] [address] documented as of this encounter Visit Diagnoses Not on filedocumented in this encounter Care Teams Billing Rep Relationship Specialty Start Date End Date Tian Chan MD [address] [place] [address] PCP - General Internal Medicine 10/04/15 documented as of this encounter
--- OUTSIDE RECORDS SUMMARY | 2025-02-16 16:34 | XMS_ITS | Encounter Summary ---
Author Organization [employer] Address [address] [facility] [address] [address] [place] [address] Care Team Providers Care Manager Telemarketing Name Role Phone Tian Chan MD Primary Care Provide r Encounter Details Date Type Department Care Team (Late st Contact Info) Description 10/25/2022 Abstract [facility] MEDICINE [address] [place] [address] Tian Chan MD [address] [place] [address] Social History Tobacco Use Types Packs/Day Years [...] Description 03/18/2025 1:00 PM EDT Office Visit [facility] MEDICINE [address] [place] [address] Tian Chan MD [address] [place] [address] 05/19/2025 2:30 PM EST Office Visit [facility] OPTOMETRY [address] [place] [id number] Jhonathan, Urvashi, OD [address] [place] [address] documented as of this encounter Procedures Procedure Name Priority Date/Time Associated Diagnosis Comments COLONOSCOPY Routine 06/23/2019 documented in this encounter Results * Colonoscopy (06/23/2019) Colonoscopy Normal Normal 06/23/2019 Asmita Gloria Rai - 06/23/2019 Recommended 5 year follow up Historical Provider [employer] MAINTENA[employer] Edited Result - Final documented in this encounter Visit Diagnoses Not on filedocumented in this encounter Care Teams Manager Telemarketing Relationship Specialty Start Date End Date Tian Chan MD [address] [place] [id number] PCP - General Internal Medicine 10/04/15 documented as of this encounter
--- OUTSIDE RECORDS SUMMARY | 2025-02-16 16:34 | XMS_ITS | Clinical Summary ---
Author Organization [employer] Address [address] [facility] [address] [place] [address] Care Team Providers Care Bleach Boiler Puller Name Role Phone Tian Chan MD Primary Care Provide r Allergies Active Allergy Reactions Criticality Noted Date Comments Bupropion Rash Low Nsaids 10/14/2006 Other reaction(s): Hyperkalemia Valproic Acid Other Medications FREESTYLE LITE test stripIndications: Diabetic retinopathy screening INSERT 1 STRIP INTO THE MACHINE 6 TIMES EVERY DAY 200 strip 5 3 Active HumaLOG 100 UNIT/ML solution 3 Active Insulin Disposable Pump (Omnipod 5 G6 Pod, Gen 5,) misc USE DIRECTED CHANGE EVERY 72 HRS 3 Active amLODIPine (Norvasc) 2.5 MG tablet Take 2.5 mg by mouth in the morning. 3 Active Blood Glucose Monitoring Suppl (FreeStyle Lite) w/Device kit DIRECTED TO TEST BLOOD SUGAR FOUR TIMES DAILY 3 Active gabapentin (Neurontin) 800 MG tablet Take 800 mg by mouth 3 times daily. 3 Active Blood Pressure Monitor kitIndications:Pr imary hypertension Check blood pressure once a week 1 kit 4 Active QUEtiapine (SEROquel) 200 MG tablet Take 200 mg by mouth at bedtime. 4 Active ondansetron (Zofran) 4 MG tabletIndications :Nausea Take 1 tablet (4 mg) by mouth every 8 (eight) hours if needed for nausea or vomiting for up to 10 doses. 10 tablet 5 Active lisinopril 40 MG tabletIndications :Essential (primary) hypertension TAKE 1 TABLET BY MOUTH EVERY DAY 90 tablet 1 5 Active rosuvastatin (Crestor) 40 MG tabletIndications :Hyperlipidemia, unspecified TAKE 1 TABLET BY MOUTH EVERY DAY 90 tablet 1 5 Active Active Problems Problem Noted Date Diagnosed Date Ganglion cyst of wrist, right 11/19/2024 Assessment & Plan (11/19/2024 3:31 PM EDT): Referred to Ortho Dr Navarro Acute midline low back pain without sciatica 10/2024 Assessment & Plan (11/19/2024 3:34 PM EDT): C/o low back pain x 2 months Plan: pt requesting to see chiropractor. Acute pain of right shoulder 10/15/2023 Assessment & Plan (11/19/2024 3:14 PM EDT): Pt here for a follow up Previously c/o new onset of right shoulder pain x 6 months. 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 On exam he had decreased ROM Etiology ? DJD, Impingement Sx ? Plain films right shoulder showed:Moderate degenerative changes in the acromioclavicular joint. 2. Tiny calcifications in the soft tissues along the superolateral aspect of the humeral head suggestive of rotator cuff pathology. , Cannot take NSAIDS Ortho saw him 02/03/2024 recommended PT first, no steroid injection given high sugars. PRN f/u Assessment & Plan (01/16/2024 3:15 PM EDT): Pt with c/o new onset of right shoulder pain x 6 months. 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 [...] x 6 months. 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 On exam he has decreased ROM Etiology ? DJD, Impingement Sx ? Plan: Plain films right shoulder, Cannot take NSAIDS Ortho for consideration of steroid injection Restless legs syndrome 11/15/2022 Assessment & Plan (11/15/2022 3:01 PM EDT): Pt states it has resolved no longer on [facility] 11/15/2022 Assessment & Plan (11/19/2024 3:20 PM EDT): PSA 12/31/2023: Normal Colonoscopy with tubular adenoma Mar 2014. 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 Repeat 06/23/2019 showed a rectal papilloma Dr Davey Tubular adenoma 11/14/2022 Assessment & Plan (11/15/2022 2:09 PM EDT): Last colonoscopy 06/23/2019 showed rectal papilloma Diabetic polyneuropathy 11/14/2022 Assessment & Plan (11/19/2024 3:30 PM EDT): Pt with Diabetic Neuropathy Pt initially reported great benefit with Neurontin that was increased up to 800 mg po TID. insurance declined to pay for Lyrica. Arterial U/S. 07/09/2019 was unremarkable. 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 Follow with endocrinology in 3 months' time. Hgb A1c 11/19/2024 : 6.4 Eye exam done on: 01/09/[address] Urvashi Whyte in the past he was seen by Dr Gonzalez (classics teacher) Dx mod Diabetic retinopathy. referred to [facility] Microalbumin checked on: 11/19/2023 was: 18 Pt on an MENDOZA inhibitor. Foot check risk of 1 Pt reports compliance with Asa 81 mg po daily Pt advised to: adhere to diabetic diet check your blood sugars regularly check your feet on a daily basis. Assessment & Plan (01/16/2024 3:12 PM EDT): Pt here for a f/u Pt is under the care of juice packaging machines setter , seen 01/08/2024 He is on: Insulin pump as per Endocrinology being treated with the Omnipod 5 pump with Dexcom G6 with good glycemic control . Follow with endocrinology in 3 months' time. Hgb A1c 10/15/2023: 10/15/2023 Eye exam done on: 09/[address] Urvashi Whyte in the past he was seen by Dr Gonzalez (classics teacher) Dx mod Diabetic retinopathy. referred to [facility] Microalbumin checked on: 02/06/2020 was: 30 Pt on an MENDOZA inhibitor. Foot check risk of 1 Pt reports compliance with Asa 81 mg po daily Pt advised to: adhere to diabetic diet check your blood sugars regularly check your feet on a daily basis. Assessment & Plan (10/15/2023 11:13 AM EDT): Pt here for a f/u Pt is under the care of juice packaging machines setter , seen 10/09/2023 He is on: Insulin pump as per Endocrinology being treated with the Omnipod 5 pump with Dexcom G6 with good glycemic control . Follow with endocrinology in 3 months' time. Hgb A1c 10/15/2023: 10/15/2023 Eye exam done on: 09/[address] Urvashi Whyte in the past he was seen by Dr Gonzalez (classics teacher) Dx mod Diabetic retinopathy. referred to [facility] Microalbumin checked on: 02/06/2020 was: 30 Pt on an MENDOZA inhibitor. Foot check risk of 1 Pt reports compliance with Asa 81 mg po daily Pt advised to: adhere to diabetic diet check your blood sugars regularly check your feet on a daily basis. Assessment & Plan (11/15/2022 2:06 PM EDT): Pt here for a f/u Pt is under the care of juice packaging machines setter , seen 11/13/2022 He is on: Insulin pump as per Endocrinology Hgb A1c 11/15/2022: Eye exam done on: 09/[address] Urvashi Whyte in the past he was seen by Dr Gonzalez (classics teacher) Dx mod Diabetic retinopathy. referred to [facility] Microalbumin checked on: 02/06/2020 was: 30 Pt [...] HFA prn Hypertension 05/20/2013 Assessment & Plan (11/19/2024 3:18 PM EDT): Here for a f/u He is on a regimen of: Lisinopril 40 mg po daily and Amlodipine 2.5 mg po daily. Most recent electrolytes, Bun and Creatinine done on: Lab Results Component Value Date NA 142 04/01/2024 NA 142 11/17/2022 K 4.3 04/01/2024 K 4.7 11/17/2022 CL 105 04/01/2024 CL 104 11/17/2022 BUN 12 04/01/2024 BUN 13 11/17/2022 CREATININE 0.88 04/01/2024 CREATININE 1.05 11/17/2022 were within normal limits. Will repeat Elevated mainly because he did not take his medications Plan: Continue current regimen, patient advised to adhere to a low sodium diet, encouraged about medication compliance, counseled about weight loss. f/u 4 months Assessment & Plan (01/16/2024 3:25 PM EDT): [...] 12/01/2012 Mixed hyperlipidemia 10/27/2012 Assessment & Plan (11/19/2024 3:19 PM EDT): Here for a f/u Patient with elevated lipids. Most recent lipid profile from: Lab Results Component Value Date TRIG 46 04/01/2024 TRIG 50 11/17/2022 CHOL 140 04/01/2024 CHOL 155 11/17/2022 LDLCHOLCAL 61 04/01/2024 LDLCHOLCAL 73 11/17/2022 HDL 70 04/01/2024 HDL 72 11/17/2022 On target He is on a regimen of Rosuvastatin 40 mg po daily . . For now will continue with current regimen advised to try to adhere to a low cholesterol diet, counseled and educated about diet and exercise, Patient encouraged to come up with a personal goal for weight loss. Assessment & Plan (11/15/2022 2:08 PM EDT): [...] 09/03/2012 Bipolar disorder 03/24/2012 Assessment & Plan (11/19/2024 3:27 PM EDT): Here for a f/u No longer seeing a psychiatrist He denies any current SI/HI He has the number for crisis and contracts for safety No longer taking any medications. No longer going to [facility] since 01/2024 Pt tells me he is been vaping marihiuana and that helos him more than the meds he was on. Assessment & Plan (11/15/2022 2:09 PM EDT): Here for a f/u pt is back to seeing a psychiatrist He denies any current SI/HI He has the number for crisis and contracts for safety Cont current med regimen as per [facility] F/u with therapist and psychiatry as scheduled Encounters Date Type Department Care Team Description 02/16/2025 Orders Only GENERIC EXTERNAL DATA DEPARTMENT Provider, Generic External Data 02/10/2025 Telephone [facility] [address] [place] [phone] Tian Chan MD Appointment Confirmation 01/11/2025 Refill [facility] [address] [place] [address] Tian Chan MD Essential (primary) hypertension; Hyperlipidemia, unspecified 11/19/2024 3:00 PM EDT Office Visit [facility] [address] [place] [phone] Tian Chan MD Acute pain of right shoulder (Primary Dx); Type 1 diabetes mellitus with diabetic polyneuropathy (CMS/HCC); Primary hypertension; Mixed hyperlipidemia; Type 1 diabetes mellitus with other ophthalmic complication (CMS/HCC); Bipolar affective disorder, remission status unspecified (CMS/HCC); Diabetic polyneuropathy associated with type 1 diabetes mellitus (CMS/HCC); Type 1 diabetes mellitus with 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 I have mary honeycutt 11/12/[address] you li ve. Do you have problems with any of the following? None of the above 11/12/2024 Food Insecurity Answer Date Recorded Within the past 12 months, y ou worried that your food would run out before you got money to buy more: Never True 11/12/2024 Within the past 12 months,th e food you bought just didn't last and you didn't have enough money to get more: Never True Transportation Answer Date Recorded In the past 12 months, has l ack of transportation kept you from medical appts, meetings, work or from getting things needed for daily living? No 11/12/2024 Utilities Answer Date Recorded In the past 12 months, has t he electric, gas, oil or water company threatened to shut off services in your home? No 11/12/2024 Depression Answer Date Recorded Patient Health Questionnaire-2 Score 0 11/19/2024 Internet Access Answer Date Recorded Internet Access Q1 Yes 11/12/2024 Internet Access Q2 Not on file 11/12/2024 Sex and Gender Information Value Date Recorded Sex Assigned at Male 04/16/2022 10:15 AM EDT Legal Sex Male 10:15 AM EDT Gender Identity Male 04/16/2022 10:15 AM EDT Sexual Orientation Straight 04/16/2022 10 :15 AM EDT Last Filed Vital Signs Vital Sign Reading Time Taken Comments Blood Pressure 110/58 11/19/2024 2:54 PM EDT Pulse 66 11/19/2024 3:25 PM EDT Temperature 36.3 C (97.3 F) 11/19/2024 2:54 PM EDT Respiratory Rate 20 11/19/2024 2:54 PM EDT Oxygen Saturation 98% 11/19/2024 2:54 PM EDT Inhaled Oxygen Concentration - - Weight 75.4 kg (166 lb 3.2 oz) 11/19/2024 2:54 P M EDT Height 170.2 cm (5' 7 ) 11/19/2024 2:54 PM EDT Body Mass Index 26.03 11/19/2024 2:54 PM EDT Plan of Treatment Upcoming Encounters Date Type Department Care Team (Late st Contact Info) Description 03/18/2025 1:00 PM EDT Office Visit [facility] [address] [place] [address] Tian Chan MD [address] [place] [address] 05/19/2025 2:30 PM EST Office Visit [facility] [address] [place] [address] JhonathanUrvashi ly, OD [address] [place] [address] Health Maintenance Due Date Last Done Comments CT Colonography 1968 FIT DNA/Cologuard 1968 FIT 1968 FOBT 1968 Sigmoidoscopy 1968 Diabetes: Foot Exam 1978 Hepatitis B Vaccines (2 of 3 - 19+ 3-dose series) 05/02/2009 04/04/2009 COVID-19 Vaccine ( season) 2024 06/27/2021, 09/06/2020, 08/09/2020 Colonoscopy 06/23/2024 06/23/2019 Colorectal Cancer Screening 06/23/2024 Diabetes: Urine Protein Screening 11/18/2024 11/19/2023, 09/14/2023, 03/17/2022, Additional history exists Eye Exam 01/08/2025 01/09/2024, 12/16, 01/09/2024, Additional history exists Influenza Vaccine (#1) 2025 , 06/15/2021, 02/26/2020 Lipid Panel 04/01/2025 04/01/2024, 06/0 08/2022, 03/17/2022, Additional history exists Diabetes: Hemoglobin A1C 05/21/2025 025, 10/15/2023, 11/15/2022, Additional history exists SDOH Screening 11/12/2025 11/12/2024 Alcohol/Substance Use Screening 11/19/2025 11/19/2024 Depression Screening 11/19/2025 11/19/2024, 11/20/19 25 Disability Screening 11/19/2025 11/19/2024 Pneumococcal Vaccine: 50+ Years (2 of 2 - PCV) 11/19/2025 02/26/2020, 01/01/2008, 06/09/2003 Postponed from 02/25/2021 (Patient Refused) Tobacco Screening 11/19/2025 11/19/2024 DTaP/Tdap/Td Vaccines (2 - Td or Tdap) [...] Associated Diagnosis Comments GLUCOSE, WHOLE BLOOD Routine 02/16/2025 3:45 PM EDT POCT GLYCATED HEMOGLOBIN, TOTAL Routine 11/19/2024 2:57 PM EDT Type 1 diabetes mellitus with diabetic polyneuropathy (CMS/HCC) POCT GLUCOSE Routine 11/19/2024 2:57 PM EDT Type 1 diabetes mellitus with diabetic polyneuropathy (CMS/HCC) LIPID PANEL, STANDARD Routine 04/01/2024 3:45 PM EDT Primary hypertension ALBUMIN, RANDOM URINE W/CREATININE Routine 11/19/2023 12:59 PM EDT HEPATITIS C ANTIBODY REFLEX Routine 11/17/2022 10:25 AM EDT HIV ANTIBODY/ANTIGEN ([place] [facility]) Routine 11/17/2022 10:25 AM EDT HM COLONOSCOPY Routine 06/23/2019 from Last 3 Months or Most Recently Relevant to Health Maintenance Results * (ABNORMAL) Glucose, Whole Blood (02/16/2025 3:45 PM EDT) Glucose, Whole Blood 124(H) 60 - 115 mg/dL [facility] Comment:METER #: [id number] 0Testing performed in the Endocrinology Department [address] , [address], [facility]. 02/16/2025 3:45 PM EDT 02/16/2025 4:02 PM EDT Generic External Data Provider LAB BLOOD ORDERAB LES Final Result [facility] [address] [place] [address] [phone] * (ABNORMAL) POCT HGB A1C (11/19/2024 2:57 PM EDT) Hemoglobin A1C 6.4(A) 4.0 - 6.0 % QC Media Lot # [id number] Lot# Expiration Date Blood 11/19/2024 2:57 PM EDT us Tian Spicer MD POINT OF CARE TEST EN TER/EDIT ORDERABLES Final Result * POCT Glucose (11/19/2024 2:57 PM EDT) Glucose Blood, POC 118 60 - 200 mg/dL QC Media Lot # [id number] Lot# Expiration Date Blood Capillary blood specimen / Unknown 11/19/2024 2:57 PM EDT Tian Spicer MD POINT OF CARE TEST EN TER/EDIT ORDERABLES Final Result * Lipid Panel, Standard (04/01/2024 3:45 PM EDT) Triglycerides 46 <150 mg/dL [facility] Comment:Desirable Triglyceri de: less than 150 mg/dLBorderline High Triglyceride 150-199 mg/dLHigh Triglyceride: 200-499 mg/dLVery High Triglyceride: greater than or equal to 5OO mg/dL Cholesterol 140 <200 mg/dL [facility] Comment:Desirable Cholestero l: less than 200 mg/dLBorderline High Cholesterol: 200-239 mg/dLHigh Cholesterol: greater than 239 mg/dL LDL Cholesterol Calculated 61 <100 mg/dL [facility] Comment:Desirable LDL: less than 100 mg/dLNear Optimal/Above Optimal LDL: 110- 129 mg/dLBorderline High LDL: 130-159 mg/dLHigh LDL: 160-189 mg/dLVery High LDL: greater than or equal to 190 mg/dL HDL Cholesterol 70 >40 mg/dL [facility] Comment:Desirable HDL: great er than 40 mg/dL Note: This HDL assay may give artificially low results in patients with liver disease. Blood Venous blood specimen / Unknown 04/01/2024 3:45 PM EDT 04/01/2024 4:20 PM EDT us Tian Spicer MD LAB BLOOD ORDERABLES Final Result Performing Organization Address [facility] Co de Phone Number [facility] [address] [place] [phone] * (ABNORMAL) Albumin, Random Urine W/Creatinine (11/19/2023 12:59 PM EDT) Creatinine, Urine 20.91 mg/dL [facility] Microalbumin Urine 18.0 mg/L [facility] Microalbum Creatinine Ratio Ur 86.0(H) <30 ug/mg cr [facility] Comment:Albumin/Creatinine R atio Reference Ranges: Normal: < 30 ug/mg creatinine Microalbuminuria: 30 - 300 ug/mg creatinineClinical Albuminuria: > 300 ug/mg creatinine 11/19/2023 12:5 9 PM EDT 11/19/2023 1:55 PM EDT us Generic External Data Provider LAB URINE ORDERAB LES Final Result Performing Organization Address [facility] Co de Phone Number [facility] [address] [place] [phone] * Hepatitis C Antibody Reflex (11/17/2022 10:25 AM EDT) Hepatitis C Antibody Nonreactive Nonreactive [facility] Comment:Antibodies to HCV no t detected; does not exclude early acuteHCV infection. 11/17/2022 10:2 5 AM EDT 11/17/2022 10:25 AM EDT [facility] External Provider LAB BLO OD ORDERABLES Final Result Performing Organization Address City/[facility]/ZIP Co de Phone Number [facility] [address] [place] [phone] [phone] * HIV Ab/Ag ([facility]) (11/17/2022 10:25 AM EDT) HIV AB/AG Nonreactive Nonreactive [facility] Comment:HIV-1 p24 Ag and/or HIV-1/HIV-2 Ab not detected.A test result that is nonreactive does not exclude thepossibility of exposure to or infection with HIV-1 and/orHIV-2. Nonreactive results in this assay for individualswith prior exposure to HIV-1 and/or HIV-2 may be due toantigen and antibody levels that are below the limit ofdetection of this assay.The [employer] HIV Ag/Ab Combo assay result andsupplemental assay results should be interpreted inconjunction with the patient's clinical presentation,history and other laboratory results. If the results areinconsistent with clinical evidence, additional testing issuggested to confirm the result. 11/17/2022 10:2 5 AM EDT 11/17/2022 10:25 AM EDT [facility] External Provider LAB BLO OD ORDERABLES Final Result Performing Organization Address City/[facility]/ZIP Co de Phone Number [facility] [address] [place] [phone] * Hm Colonoscopy (06/23/2019) Colonoscopy Normal Normal 06/23/2019 Gloria West - 06/23/2019 Recommended 5 year follow up us Historical Provider HEALTH MAINTENANCE Edited Result - Final from Last 3 Months or Most Recently Relevant to Health Maintenance Insurance [facility] Care Teams Bleach Boiler Puller Relationship Specialty Start Date End Date Tian Chan MD [address] [place] [address] [place] [address] PCP - General Internal Medicine 10/04/15
--- OUTSIDE RECORDS SUMMARY | 2025-02-16 16:34 | XMS_ITS | Encounter Summary ---
Author Organization [employer] Address [address] [facility] [address] [place] [address] Care Team Providers Care Roll Clamp Operator Name Role Phone Tian Chan MD Primary Care Provide r Encounter Details Date Type Department Care Team (Late st Contact Info) Description 02/16/2025 Orders Only GENERIC EXTERNAL DATA [...] Description 03/18/2025 1:00 PM EDT Office Visit [facility] [address] [place] [address] Tian Chan MD [address] [place] [address] 05/19/2025 2:30 PM EST Office Visit [facility] [address] [place] [address] Urvashi Ring, OD [address] [place] [address] documented as of this encounter Procedures Procedure Name Priority Date/Time Associated Diagnosis Comments GLUCOSE, WHOLE BLOOD Routine 02/16/2025 3:45 PM EDT documented in this encounter Results * (ABNORMAL) Glucose, Whole Blood (02/16/2025 3:45 PM EDT) Glucose, Whole Blood 124(H) 60 - 115 mg/dL [facility] Comment:METER #: [id number] 0Testing performed in the Endocrinology Department [address] , [address], [facility]. 02/16/2025 3:45 PM EDT 02/16/2025 4:02 PM EDT us Generic External Data Provider LAB BLOOD ORDERAB LES Final Result [facility] [address] [place] [phone] [phone] documented in this encounter Visit Diagnoses Not on filedocumented in this encounter Additional Health Concerns Assessment Noted Time PHQ-9 Depression Total Score: 0 11/20/19 25 2:56 PM EDT documented as of this encounter Care Teams Roll Clamp Operator Relationship Specialty Start Date End Date Tian Chan MD [address] [place] [address] PCP - General Internal Medicine 10/04/15 documented as of this encounter
--- OUTSIDE RECORDS SUMMARY | 2025-02-16 16:34 | XMS_ITS | Encounter Summary ---
Author Organization [employer] Address [address] [facility] [address] [place] [address] Care Team Providers Care Waiter/Waitress Club Name Role Phone Tian Chan MD Primary Care Provide r Encounter Details Date Type Department Care Team (Late st Contact Info) Description 08/20/2022 Orders Only [facility] [address] [place], [place] [phone] Harriet Garcia LPN Social History Tobacco Use [...] Description 03/18/2025 1:00 PM EDT Office Visit [facility] [address] [place] [address] Tian Chan MD [address] [place] [address] 05/19/2025 2:30 PM EST Office Visit [facility] [address] [place] [address] Urvashi Ring, OD [address] [place] [address] documented as of this encounter Visit Diagnoses Not on filedocumented in this encounter Care Teams Waiter/Waitress Club Relationship Specialty Start Date End Date Tian Chan MD [address] [place] [address] PCP - General Internal Medicine 10/04/15 documented as of this encounter
--- OUTSIDE RECORDS SUMMARY | 2025-02-16 16:34 | XMS_ITS | Clinical Summary ---
Author Organization [address] [place] [address] Address [address] [place] [address] Phone Care Team Providers Care Materials Development Engineer Name Role Phone Tian Wilkerson MD Primary Care Provi panda Social History Tobacco Use Types Packs/Day Years Used Date Smoking Tobacco: Never Assessed Sex and Gender Information Value Date Recorded Sex Assigned at Not on file Legal Sex Male 10:44 AM EDT Gender Identity Not on file Sexual Orientation Not on file Plan of Treatment Upcoming Encounters Date Type Department Care Team ([facility] Contact Info) Description 03/09/2025 2:30 PM EDT Consult Orthopedic Surgery - [address] [phone] Salome Navarro MD [address] [address] Health Maintenance Due Date Last Done Comments DTaP,Tdap,and Td Vaccines (1 - Tdap) 1987 Hepatitis B Vaccines (1 of 3 - 19+ 3-dose series) 1987 Pneumococcal Vaccine: 50+ Ye ars (1 of 1 - PCV) 2018 Zoster Vaccines (1 of 2) 2018 COVID-19 Vaccine ( - 2023-2 5 season) 2024 Depression Screening 06/17/2024 Cholesterol Screening (Lipid Panel) 11/23/2024 Colorectal Cancer Screening: Colonoscopy 11/23/2024 HIV Screening 11/23/2024 Hepatitis C Screening 11/23/2024 Social Influencers of Health Screening 11/23/2024 Influenza Vaccine (#1) 2025 HIB Vaccines Aged Out No longer eligi [...] on patient's age to complete this topic MMR Vaccines Aged Out No longer eligi ble based on patient's age to complete this topic Meningococcal ACWY Vaccine Aged Out N o longer eligible based on patient's age to complete this topic Meningococcal B Vaccine Aged Out No l onger eligible based on patient's age to complete this topic RSV Immunization Patients Un panda 20 months Aged Out No longer eligible b ased on patient's age to complete this topic Varicella Vaccines Aged Out No longer eligible based on patient's age to complete this topic Insurance [facility] MEDICAID - [place] Care Teams Materials Development Engineer Relationship Specialty Start Date End Date Tian Wilkerson MD [address] [place] [phone] PCP - General Internal Medicine 11/23/24
== END 2025-02-16 16:23 | disposition home or self-care (01) ==
LOC: HO.ENCR 15:35
PROVIDERS: PCP Internal Medicine; Visit Provider Student in an Organized Health Care Education/Training Program
DX: Z13.9 Encounter for screening, unspecified (principal); E10.65 Type 1 diabetes mellitus with hyperglycemia
CPT/HCPCS: 95251; 99214

== ENCOUNTER → 2025-02-16 15:35 | Outpatient (BNVA) | payer OTHER, MEDICAID, SELFPAY | PROVIDERS: PCP Internal Medicine; Visit Provider Student in an Organized Health Care Education/Training Program | DX: E10.65 Type 1 diabetes mellitus with hyperglycemia (principal) | CPT/HCPCS: 82947; 83036 ==

== ENCOUNTER 2025-02-17 07:36 | Outpatient (REF) | payer OTHER, MEDICAID, SELFPAY ==
--- OUTSIDE RECORDS SUMMARY | 2025-02-17 07:39 | XMS_ITS | Clinical Summary ---
Author Organization [employer] Address 75 [facility] 7t [place] [address] Care Team Providers Care Autism Tutor Name Role Phone Tian Chan MD Primary [...] x 6 months. 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 [...] x 6 months. 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 [...] x 6 months. 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 On exam he has decreased ROM Etiology ? DJD, Impingement Sx ? Plan: Plain films right shoulder, Cannot take NSAIDS Ortho for consideration of steroid injection Restless legs syndrome 11/15/2022 Assessment & Plan (11/15/2022 3:01 PM EDT): Pt states it has resolved no longer on [facility] 11/15/2022 Assessment & Plan (11/19/2024 [...] f/u Pt is under the care of heater planer operator , seen 11/05/2024 He is on: Insulin pump as per Endocrinology being treated with the Omnipod 5 pump with Dexcom G6 with good glycemic control . Follow with endocrinology in 3 months' time. Hgb A1c 11/19/2024 : 6.4 Eye exam done on: 01/09/[address] 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 referred to [facility] Microalbumin checked on: 11/19/2023 was: 18 Pt on an MENDOZA inhibitor. Foot check risk of 1 Pt reports compliance with Asa 81 mg po daily Pt advised to: adhere to diabetic diet check your blood sugars regularly check your feet on a daily basis. Assessment & Plan (01/16/2024 3:12 PM EDT): Pt here for a f/u Pt is under the care of heater planer operator , seen 01/08/2024 He is on: Insulin pump as per Endocrinology being treated with the Omnipod 5 pump with Dexcom G6 with good glycemic control . Follow with endocrinology in 3 months' time. Hgb A1c 10/15/2023: 10/15/2023 Eye exam done on: 09/[address] 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 referred to [facility] Microalbumin checked on: 02/06/2020 was: 30 Pt on an MENDOZA inhibitor. Foot check risk of 1 Pt reports compliance with Asa 81 mg po daily Pt advised to: adhere to diabetic diet check your blood sugars regularly check your feet on a daily basis. Assessment & Plan (10/15/2023 11:13 AM EDT): Pt here for a f/u Pt is under the care of heater planer operator , seen 10/09/2023 He is on: Insulin pump as per Endocrinology being treated with the Omnipod 5 pump with Dexcom G6 with good glycemic control . Follow with endocrinology in 3 months' time. Hgb A1c 10/15/2023: 10/15/2023 Eye exam done on: 09/[address] 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 referred to [facility] Microalbumin checked on: 02/06/2020 was: 30 Pt on an MENDOZA inhibitor. Foot check risk of 1 Pt reports compliance with Asa 81 mg po daily Pt advised to: adhere to diabetic diet check your blood sugars regularly check your feet on a daily basis. Assessment & Plan (11/15/2022 2:06 PM EDT): Pt here for a f/u Pt is under the care of heater planer operator , seen 11/13/2022 He is on: Insulin pump as per Endocrinology Hgb A1c 11/15/2022: Eye exam done on: 09/[address] 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 referred to [facility] Microalbumin checked on: 02/06/2020 was: 30 [...] taking any medications. No longer going to [facility] since 01/2024 Pt tells me he is been vaping marihiuana and that helos him more than the meds he was on. Assessment & Plan (11/15/2022 2:09 PM EDT): Here for a f/u pt is back to seeing a psychiatrist He denies any current SI/HI He has the number for crisis and contracts for safety Cont current med regimen as per [facility] F/u with therapist and psychiatry as scheduled Encounters Date Type Department Care Team Description 02/16/2025 Orders Only GENERIC EXTERNAL DATA DEPARTMENT Provider, Generic External Data 02/10/2025 Telephone [facility] [address] [place] [phone] Tian Chan MD Appointment Confirmation 01/11/2025 Refill [facility] [address] [place] [address] Tian Chan MD Essential (primary) hypertension; Hyperlipidemia, unspecified 11/19/2024 3:00 PM EDT Office Visit [facility] [address] [place] [phone] Tian Chan MD Acute pain of right [...] pain without sciatica 11/19/2024 Travel 11/18/2024 Telephone [facility] [address] [place] [address] Tian Chan MD chart prep from Last [...] Description 03/18/2025 1:00 PM EDT Office Visit [facility] [address] [place] [address] Tian Chan MD [address] [place] [address] 05/19/2025 2:30 PM EST Office Visit [facility] [address] [place] [address] JhonathanUrvashi ly, OD [address] [place] [address] Health Maintenance Due Date Last Done Comments [...] Whole Blood 124(H) 60 - 115 mg/dL [facility] Comment:METER #: [id number] 0Testing performed in the Endocrinology Department [address] , [address], [facility]. 02/16/2025 3:45 PM EDT 02/16/2025 4:02 PM EDT Generic External Data Provider LAB BLOOD ORDERAB LES Final Result [facility] [address] [place] [address] [phone] * (ABNORMAL) POCT HGB A1C (11/19/2024 [...] 3:45 PM EDT) Triglycerides 46 <150 mg/dL [facility] Comment:Desirable Triglyceri de: less than 150 mg/dLBorderline High Triglyceride 150-199 mg/dLHigh Triglyceride: 200-499 mg/dLVery High Triglyceride: greater than or equal to 5OO mg/dL Cholesterol 140 <200 mg/dL [facility] Comment:Desirable Cholestero l: less than 200 mg/dLBorderline High Cholesterol: 200-239 mg/dLHigh Cholesterol: greater than 239 mg/dL LDL Cholesterol Calculated 61 <100 mg/dL [facility] Comment:Desirable LDL: less than 100 mg/dLNear Optimal/Above Optimal LDL: 110- 129 mg/dLBorderline High LDL: 130-159 mg/dLHigh LDL: 160-189 mg/dLVery High LDL: greater than or equal to 190 mg/dL HDL Cholesterol 70 >40 mg/dL [facility] Comment:Desirable HDL: great er than 40 mg/dL Note: This HDL assay may give artificially low results in patients with liver disease. Blood Venous blood specimen / Unknown 04/01/2024 3:45 PM EDT 04/01/2024 4:20 PM EDT us Tian Spicer MD LAB BLOOD ORDERABLES Final Result Performing Organization Address [facility] Co de Phone Number [facility] [address] [place] [phone] * (ABNORMAL) Albumin, Random Urine W/Creatinine (11/19/2023 12:59 PM EDT) Creatinine, Urine 20.91 mg/dL [facility] Microalbumin Urine 18.0 mg/L [facility] Microalbum Creatinine Ratio Ur 86.0(H) <30 ug/mg cr [facility] Comment:Albumin/Creatinine R atio Reference Ranges: Normal: < 30 ug/mg creatinine Microalbuminuria: 30 - 300 ug/mg creatinineClinical Albuminuria: > 300 ug/mg creatinine 11/19/2023 12:5 9 PM EDT 11/19/2023 1:55 PM EDT us Generic External Data Provider LAB URINE ORDERAB LES Final Result Performing Organization Address [facility] Co de Phone Number [facility] [address] [place] [phone] * Hepatitis C Antibody Reflex (11/17/2022 10:25 AM EDT) Hepatitis C Antibody Nonreactive Nonreactive [facility] Comment:Antibodies to HCV no t detected; does not exclude early acuteHCV infection. 11/17/2022 10:2 5 AM EDT 11/17/2022 10:25 AM EDT [facility] External Provider LAB BLO OD ORDERABLES Final Result Performing Organization Address City/[facility]/ZIP Co de Phone Number [facility] [address] [place] [phone] [phone] * HIV Ab/Ag ([facility]) (11/17/2022 10:25 AM EDT) HIV AB/AG Nonreactive Nonreactive [facility] Comment:HIV-1 p24 Ag and/or HIV-1/HIV-2 Ab not detected.A test result that is nonreactive does not exclude thepossibility of exposure to or infection with HIV-1 and/orHIV-2. Nonreactive results in this assay for individualswith prior exposure to HIV-1 and/or HIV-2 may be due toantigen and antibody levels that are below the limit ofdetection of this assay.The [employer] Counsel[employer] HIV Ag/Ab Combo assay result andsupplemental assay results should be interpreted inconjunction with the patient's clinical presentation,history and other laboratory results. If the results areinconsistent with clinical evidence, additional testing issuggested to confirm the result. 11/17/2022 10:2 5 AM EDT 11/17/2022 10:25 AM EDT [facility] External Provider LAB BLO OD ORDERABLES Final Result Performing Organization Address City/[facility]/ZIP Co de Phone Number [facility] [address] [place] [phone] [phone] * Hm Colonoscopy (06/23/2019) Colonoscopy Normal Normal 06/23/2019 Gloria West - 06/23/2019 Recommended 5 year follow up us Historical Provider HEALTH MAINTENANCE Edited Result - Final from Last 3 Months or Most Recently Relevant to Health Maintenance Insurance [facility] CHOICE Care Teams Autism Tutor Relationship Specialty Start Date End Date Tian Chan MD [address] [place] [address] [place] [address] PCP - General Internal Medicine 10/04/15
--- OUTSIDE RECORDS SUMMARY | 2025-02-17 07:39 | XMS_ITS | Encounter Summary ---
Author Organization [employer] Address [address] [facility] 7t [place] [address] Care Team Providers Care Helix Coil Winder Name Role Phone Tian Chan MD Primary Care Provide r Encounter Details Date Type Department Care Team (Late st Contact Info) Description 08/20/2022 Orders Only [facility] [address] [place], [place] [phone] Harriet Garcai LPN Social History Tobacco Use Types Packs/Day [...] Description 03/18/2025 1:00 PM EDT Office Visit [facility] [address] [place] [address] Tian Chan MD [address] [place] [address] 05/19/2025 2:30 PM EST Office Visit [facility] [address] [place] [address] Urvashi Ring, OD [address] [place] [address] documented as of this encounter Visit Diagnoses Not on filedocumented in this encounter Care Teams Helix Coil Winder Relationship Specialty Start Date End Date Tian Chan MD [address] [place] [address] PCP - General Internal Medicine 10/04/15 documented as of this encounter
--- OUTSIDE RECORDS SUMMARY | 2025-02-17 07:39 | XMS_ITS | Encounter Summary ---
Author Organization [employer] Address [address] [facility] 7t [place] [address] Care Team Providers Care Rope Tier Name Role Phone Tian Chan MD Primary Care Provide r Encounter Details Date Type Department Care Team (Late st Contact Info) Description 10/25/2022 Abstract [facility] [address] [place] [address] Tian Chan MD [address] [place] [address] Social History Tobacco Use Types Packs/Day Years [...] Description 03/18/2025 1:00 PM EDT Office Visit [facility] [address] [place] [address] Tian Chan MD [address] [place] [address] 05/19/2025 2:30 PM EST Office Visit [facility] OPT[facility] [address] [place] [phone] Jhonathan, Urvashi, OD [address] [place] [address] documented as of this encounter Procedures Procedure Name Priority Date/Time Associated Diagnosis Comments COLONOSCOPY Routine 06/23/2019 documented in this encounter Results * Colonoscopy (06/23/2019) Colonoscopy Normal Normal 06/23/2019 Asmita Gloria Rai - 06/23/2019 Recommended 5 year follow up Historical Provider [employer] MAINTENANCE Edited Result - Final documented in this encounter Visit Diagnoses Not on filedocumented in this encounter Care Teams Rope Tier Relationship Specialty Start Date End Date Tian Chan MD [address] [place] [phone] PCP - General Internal Medicine 10/04/15 documented as of this encounter
--- OUTSIDE RECORDS SUMMARY | 2025-02-17 07:39 | XMS_ITS | Clinical Summary ---
Author Organization [address] [place] [address] Address [address] [place] [address] Phone Care Team Providers Care Plumbers And Top Helpers Name Role Phone Tian Wilkerson MD Primary Care Provi panda Social History Tobacco Use Types Packs/Day Years Used Date Smoking Tobacco: Never Assessed Sex and Gender Information Value Date Recorded Sex Assigned at Not on file Legal Sex Male 10:44 AM EDT Gender Identity Not on file Sexual Orientation Not on file Plan of Treatment Upcoming Encounters Date Type Department Care Team ([facility] Contact Info) Description 03/09/2025 2:30 PM EDT Consult Orthopedic Surgery - [address] [phone] Salome Navarro MD [address] [phone] Health Maintenance Due Date Last [...] patient's age to complete this topic Insurance [facility] MEDICAID - [place] Care Teams Plumbers And Top Helpers Relationship Specialty Start Date End Date Tian Wilkerson MD [address] [place] [phone] PCP - General Internal Medicine 11/23/24
--- OUTSIDE RECORDS SUMMARY | 2025-02-17 07:39 | XMS_ITS | Encounter Summary ---
Author Organization [employer] Address 75 [facility] 7t [place] [address] Care Team Providers Care Transitional Care Liaison Name Role Phone Tian Chan MD Primary Care Provide r Encounter Details Date Type Department Care Team (Latest Contact Info) Description 10/17/2021 Abstract [facility] CONVERSIONS Dental, Provider, DDS Social History Tobacco [...] Description 03/18/2025 1:00 PM EDT Office Visit [facility] [address] [place] [address] Tian Chan MD [address] [place] [address] 05/19/2025 2:30 PM EST Office Visit [facility] OPTOMETRY [address] [place] [address] Urvashi Ring, OD [address] [place] [address] documented as of this encounter Visit Diagnoses Not on filedocumented in this encounter Care Teams Transitional Care Liaison Relationship Specialty Start Date End Date Tian Chan MD [address] [place] [address] PCP - General Internal Medicine 10/04/15 documented as of this encounter
--- OUTSIDE RECORDS SUMMARY | 2025-02-17 07:39 | XMS_ITS | Encounter Summary ---
Author Organization [employer] Address [address] [facility] 7t [place] [address] Care Team Providers Care Furnace Mechanic Helper Name Role Phone Tian Chan MD Primary [...] Description 03/18/2025 1:00 PM EDT Office Visit [facility] [address] [place] [address] Tian Chan MD [address] [place] [address] 05/19/2025 2:30 PM EST Office Visit [facility] OPTOMETRY [address] [place] [address] Urvashi Ring, OD [address] [place] [address] documented as of this encounter Procedures Procedure Name Priority Date/Time Associated Diagnosis Comments GLUCOSE, WHOLE BLOOD Routine 02/16/2025 3:45 PM EDT documented in this encounter Results * (ABNORMAL) Glucose, Whole Blood (02/16/2025 3:45 PM EDT) Glucose, Whole Blood 124(H) 60 - 115 mg/dL [facility] Comment:METER #: [id number] 0Testing performed in the Endocrinology Department [address] , [address], [facility]. 02/16/2025 3:45 PM EDT 02/16/2025 4:02 PM EDT us Generic External Data Provider LAB BLOOD ORDERAB LES Final Result [facility] [address] [place] [address] [phone] documented in this encounter Visit Diagnoses Not on filedocumented in this encounter Additional Health Concerns Assessment Noted Time PHQ-9 Depression Total Score: 0 11/20/19 25 2:56 PM EDT documented as of this encounter Care Teams Furnace Mechanic Helper Relationship Specialty Start Date End Date Tian Chan MD [address] [place] [address] PCP - General Internal Medicine 10/04/15 documented as of this encounter
[2025-02-17 08:48] LABS: Hematocrit 35.3 % (42.0-52.0); Hemoglobin 11.5 g/dl (14.0-18.0); Mean Corpuscular HGB Conc 32.6 g/dl (31.0-36.0); Mean Corpuscular Hemoglobin 32.2 pg (27.0-33.0); Mean Corpuscular Volume 98.9 fL (80.0-98.0); NRBC Abs Auto 0.000 X10*3/uL (0.0-0.012); NRBC Pct Auto 0.0 /100WBC (0.0-0.2); Platelet Count 284 X10*3/uL (160-400); Red Blood Count 3.57 X10*6/uL (4.60-5.80); White Blood Count 4.9 X10*3/uL (4.8-10.8)
[2025-02-17 09:30] LABS: Alanine Aminotransferase 19 U/L (0-40); Aspartate Amino Transferase 40 U/L (5-37); Cholesterol 139 mg/dL (<200); Estimated Glomerular Filt Rate > 60; HDL Cholesterol 55 mg/dL (>40); Triglycerides 79 mg/dL (<150)
[2025-02-17 09:39] LABS: Free T4 (Free Thyroxine) 0.88 ng/dL (0.71-1.85); Thyroid Stimulating Hormone 2.79 uIU/mL (0.32-4.0)
[2025-02-17 09:50] LABS: Microalbum/Creatinine Ratio Ur 78.9 ug/mg cr (<30)
== END 2025-02-17 07:37 | disposition home or self-care (01) ==
LOC: HO.LAB 07:36
PROVIDERS: Absent Provider Internal Medicine; PCP Internal Medicine; Visit Provider Student in an Organized Health Care Education/Training Program
DX: E10.65 Type 1 diabetes mellitus with hyperglycemia (principal)
CPT/HCPCS: 36415; 80061; 82043; 82565; 82570; 84439; 84443; 84450; 84460; 85027

== ENCOUNTER 2025-03-23 13:05 | Outpatient (AMB) | payer OTHER, MEDICAID, SELFPAY ==
--- OUTSIDE RECORDS SUMMARY | 2025-03-18 13:00 | XMS_ITS | Encounter Summary ---
Author Organization [employer] Address [address] [facility] [address] [place] [address] Care Team Providers Care Wax Blender Name Role Phone Tian Chan MD Primary Care Provide r Reason for Referral * Consultation (Routine) - Closed Specialty Diagnoses / Procedures Referred By Contac t Referred To Contact Gastroenterology Diagnoses Tubular adenoma Anemia, unspecified type Tian Chan MD [address] [place] [address] Phone: tel: fax: [facility] Referral ID Status Reason Start Date Expiration Date V isits Requested Visits Authorized [id number] Closed Specialty Services Required 03/18/2025 03/18/2026 1 1 Reason for Visit * Reason Comments Follow-up DM Encounter Details Date Type Department Care Team (Latest Contact Info) Description 03/18/2025 1:00 PM EDT Office Visit [facility] [address] [place], [place] [phone] Tian Chan MD [address] [place], [place] [id number] 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) (Primary Dx); Primary hypertension; Mixed hyperlipidemia; Insulin pump in place; Mild nonproliferative diabetic retinopathy of 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 edema associated with type 1 diabetes mellitus (HCC); Tubular adenoma; Mild intermittent asthma without complication; Anemia, unspecified type; Encounter for immunization Social History Tobacco Use Types Packs/Day Years [...] Sign Reading Time Taken Comments Blood Pressure 130/64 03/18/2025 1:02 PM EDT Pulse 72 03/18/2025 1:02 PM EDT Temperature 36.4 C (97.6 F) 03/18/2025 1:02 PM EDT Respiratory Rate 20 03/18/2025 1:02 PM EDT Oxygen Saturation - - Inhaled Oxygen Concentration - - Weight 73.4 kg (161 lb 12.8 oz) 03/18/2025 1:02 PM EDT Height 167.6 cm (5' 6 ) 03/18/2025 1:02 PM EDT Body Mass Index 26.12 03/18/2025 1:02 PM EDT documented in this encounter Progress Notes * Tian Spicer MD - 03/18/2025 1:00 PM EDT SUBJECTIVE Vasiliy Pierce is a 54 y.o. male who presents for Follow-up (DM). Vasiliy Pierce, 54 years Diabetes Mellitus - History of diabetes, currently managed with insulin pump - Recent endocrinology visit - Blood sugar reported as 280 mg/dL on day of encounter - Appointment scheduled next week for insulin pump review and programming Anemia - Noted anemia on recent blood work dated March 19, 2025 - Hemoglobin reported as 11.5 g/dL - No prior upper endoscopy - Colonoscopy performed approximately 5 years ago Retinal Specialist Follow-up - Retinal specialist appointment rescheduled to May 19, 2025 at 3:30 PM Misc - Expressed concern about kidney health, reassured by recent results - Denies history of upper endoscopy Diabetes He presents for his follow-up diabetic visit. He has type 2 diabetes mellitus. Pertinent negatives for hypoglycemia include no headaches. Pertinent negatives for diabetes include no chest pain. Review of Systems Constitutional: Negative for fever. HENT: Negative for sore throat. Respiratory: Negative for cough and shortness of breath. Cardiovascular: Negative for chest pain. Gastrointestinal: Negative for abdominal pain. Neurological: Negative for headaches. Allergies[1] OBJECTIVE Vitals: 03/18/25 1302 BP: 130/64 BP Location: Left arm Patient Position: Sitting BP Cuff Size: Large adult Pulse: 72 Resp: 20 Temp: 97.6 ??F (36.4 ??C) TempSrc: Oral Weight: 161 lb 12.8 oz (73.4 kg) Height: 5' 6 (1.676 m) Physical Exam Vitals reviewed. Constitutional: Appearance: Normal appearance. HENT: Head: Normocephalic and atraumatic. Right Ear: External ear normal. Left Ear: External ear normal. Nose: Nose normal. Mouth/Throat: Mouth: Mucous membranes are moist. Eyes: Conjunctiva/sclera: Conjunctivae normal. Cardiovascular: Rate and Rhythm: Normal rate and regular rhythm. Pulmonary: Effort: Pulmonary effort is normal. Breath sounds: Normal breath sounds. Skin: General: Skin is warm. Neurological: Mental Status: He is alert. Mental status is at baseline. 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 Hgb A1c 03/18/2025 : 6.7 from 6.4 Eye exam done on: 01/09/[address] Urvashi Whyte in the past he was seen by Dr Gonzalez (screw machine set up operator tool) Dx mod Diabetic retinopathy. referred to [facility] Microalbumin checked on: 02/17/2025 was: 119 Pt on an MENDOZA inhibitor. Foot check risk of 1 Pt reports compliance with Asa 81 mg po daily Pt advised to: adhere to diabetic diet check your blood sugars regularly check your feet on a daily basis. Relevant Orders POCT Glucose (Completed) POCT Hgb A1c (Completed) Hypertension Here for a f/u BP controlled He is on a regimen of: Lisinopril 40 mg po daily and Amlodipine 2.5 mg po daily. Most recent electrolytes, Bun and Creatinine done on: Lab Results Component Value Date NA 142 04/01/2024 NA 142 11/17/2022 K 4.3 04/01/2024 K 4.7 11/17/2022 CL 105 04/01/2024 CL 104 11/17/2022 BUN 12 04/01/2024 BUN 13 11/17/2022 CREATININE 1.14 02/17/2025 CREATININE 0.88 04/01/2024 were within normal limits. Will repeat BMP Plan: Continue current regimen, patient advised to adhere to a low sodium diet, encouraged about medication compliance, counseled about weight loss. f/u 4 months Mixed hyperlipidemia Here for a f/u Patient with elevated lipids. Most recent lipid profile from: Lab Results Component Value Date TRIG 79 02/17/2025 TRIG 46 04/01/2024 CHOL 139 02/17/2025 CHOL 140 04/01/2024 LDLCHOLCAL 69 02/17/2025 LDLCHOLCAL 61 04/01/2024 HDL 55 02/17/2025 HDL 70 04/01/2024 On target He is on a regimen of Rosuvastatin 40 mg po daily . . For now will continue with current regimen advised to try to adhere to a low cholesterol diet, counseled and educated about diet and exercise,Patient encouraged to come up with a personal goal for weight loss. Insulin pump in place As per Endocrinology Diabetic retinopathy (HCC) Being followed by [facility] Tubular adenoma Last colonoscopy 06/23/2019 showed rectal papilloma Relevant Orders Referral to Gastroenterology Mild intermittent asthma PFTS suggestive of this Currently doing well Pro-Air HFA prn No recent exacerbations Anemia CBC 02/17/2025 showed anemia Iron studies, B12 and folate ordered Referred to GI for EGD/Colonoscopy. Pt is overdue for colonoscopy as well ( q 5 yrs given history of TA) Relevant Orders Iron And Total Iron Binding Capacity Vitamin B12/Folate, Serum Panel Referral to Gastroenterology This note was drafted using Ambient (AI) technology. The patient/patient's guardian has been informed and has consented to the use of this technology: Yes Future Appointments Date Time Provider Department Center 05/19/2025 2:30 PM Urvashi Ring, OD [facility] [1] Allergies Allergen Reactions Nsaids Other reaction(s): Hyperkalemia Valproic Acid Other Bupropion Rash documented in this encounter Miscellaneous Notes * Assessment & Plan Note - Tian Spicer MD - 03/18/2025 1:14 PM EDT Associated Problem(s): Anemia CBC 02/17/2025 showed anemia Iron studies, B12 and folate ordered Referred to GI for EGD/Colonoscopy. Pt is overdue for colonoscopy as well ( q 5 yrs given history of TA) * Assessment & Plan Note - Tian Spicer MD - 03/18/2025 1:03 PM EDT Associated Problem(s): Mild intermittent asthma PFTS suggestive of this Currently doing well Pro-Air HFA prn No recent exacerbations * Assessment & Plan Note - Tian Spicer MD - 03/18/2025 1:03 PM EDT Associated Problem(s): Tubular adenoma Last colonoscopy 06/23/2019 showed rectal papilloma * Assessment & Plan Note - Tian Spicer MD - 03/18/2025 1:03 PM EDT Associated Problem(s): Diabetic retinopathy (HCC) Being followed by [facility] * Assessment & Plan Note - Tian Spicer MD - 03/18/2025 1:02 PM EDT Associated Problem(s): Insulin pump in place As per Endocrinology * Assessment & Plan Note - Tian Spicer MD - 03/18/2025 1:01 PM EDT Associated Problem(s): Mixed hyperlipidemia Here for a f/u Patient with elevated lipids. Most recent lipid profile from: Lab Results Component Value Date TRIG 79 02/17/2025 TRIG 46 04/01/2024 CHOL 139 02/17/2025 CHOL 140 04/01/2024 LDLCHOLCAL 69 02/17/2025 LDLCHOLCAL 61 04/01/2024 HDL 55 02/17/2025 HDL 70 04/01/2024 On target He is on a regimen of Rosuvastatin 40 mg po daily . . For now will continue with current regimen advised to try to adhere to a low cholesterol diet, counseled and educated about diet and exercise,Patient encouraged to come up with a personal goal for weight loss. * Assessment & Plan Note - Tian Spicer MD - 03/18/2025 1:01 PM EDT Associated Problem(s): Hypertension Here for a f/u BP controlled He is on a regimen of: Lisinopril 40 mg po daily and Amlodipine 2.5 mg po daily. Most recent electrolytes, Bun and Creatinine done on: Lab Results Component Value Date NA 142 04/01/2024 NA 142 11/17/2022 K 4.3 04/01/2024 K 4.7 11/17/2022 CL 105 04/01/2024 CL 104 11/17/2022 BUN 12 04/01/2024 BUN 13 11/17/2022 CREATININE 1.14 02/17/2025 CREATININE 0.88 04/01/2024 were within normal limits. Will repeat BMP Plan: Continue current regimen, patient advised to adhere to a low sodium diet, encouraged about medication compliance, counseled about weight loss. f/u 4 months * Assessment & Plan Note - Tian Spicer MD - 03/18/2025 1:00 PM EDT Associated Problem(s): Type 1 diabetes mellitus with mild nonproliferative retinopathy of both eyeswithout macular edema (HCC) Pt here for a f/u Pt is under the care of Locomotive Firer , seen 02/16/2025 He is being treated with the Omnipod 5 pump with Dexcom G6 with good glycemic control . Hgb A1c 03/18/2025 : 6.7 from 6.4 Eye exam done on: 01/09/[address] Urvashi Whyte in the past he was seen by Dr Gonzalez (screw machine set up operator tool) Dx mod Diabetic retinopathy. referred to [facility] Microalbumin checked on: 02/17/2025 was: 119 Pt on an MENDOZA inhibitor. Foot check risk of 1 Pt reports compliance with Asa 81 mg po daily Pt advised to: adhere to diabetic diet check your blood sugars regularly check your feet on a daily basis. * Addendum Note - Dylan Meza RN - 03/18/2025 1:00 PM EDTAddended by: DYLAN MEZA on: 03/18/2025 01:23 PM Modules accepted: Orders documented in this encounter Plan of Treatment Upcoming Encounters Date Type Department Care Team (Late st Contact Info) Description 05/19/2025 2:30 PM EST Office Visit [facility] [address] [place] [address] Jhonathan, Urvashi, OD [address] [place] [address] Scheduled Orders Name Type Priority Associated Diagnoses Orde r Schedule Iron And Total Iron Binding Capacity Lab Routine Anemia, unspecified type Expected: 03/18/2025, Expires: 03/18/2026 Vitamin B12/Folate, Serum Panel Lab Routine Anemia, unspecified type Expected: 03/18/2025, Expires: 03/18/2026 Scheduled Referrals Name Type Priority Associated Diagnoses Order Schedule Referral to Gastroenterology Outpatient Referral Routine Tubular adenoma Anemia, unspecified type Expected: 03/18/2025 (Approximate), Expires: 03/18/2026 documented as of this encounter Procedures Procedure Name Priority Date/Time Associated Diagnosis Comments POCT GLYCATED HEMOGLOBIN, TOTAL Routine 03/18/2025 1:13 PM EDT 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) POCT GLUCOSE Routine 03/18/2025 1:03 PM EDT 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) documented in this encounter Results * (ABNORMAL) POCT Hgb A1c (03/18/2025 1:13 PM EDT) Hemoglobin A1C 6.7(A) 4.0 - 5.7 % QC Media Lot # [id number] Lot# Expiration Date Blood 03/18/2025 1:13 PM EDT Tian Spicer MD POINT OF CARE TEST EN TER/EDIT ORDERABLES Final Result * (ABNORMAL) POCT Glucose (03/18/2025 1:03 PM EDT) Glucose Blood, POC 280(A) 60 - 200 mg/dL QC Media Lot # [id number] Lot# Expiration Date Blood Capillary blood specimen / Unknown 03/18/2025 1:03 PM EDT Tian Spicer MD POINT OF CARE TEST EN TER/EDIT ORDERABLES Final Result documented in this encounter Visit Diagnoses Diagnosis 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)- Primary Primary hypertension Unspecified essential hypertension Mixed hyperlipidemia Insulin pump in place Insulin pump status Mild nonproliferative diabetic retinopathy of 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 edema associated with type 1 diabetes mellitus (HCC) Tubular adenoma Benign neoplasm of unspecified site Mild intermittent asthma without complication Anemia, unspecified type Encounter for immunization documented in this encounter Additional Health Concerns Assessment Noted Time PHQ-9 Depression Total Score: 0 11/20/19 25 2:56 PM EDT documented as of this encounter Care Teams Wax Blender Relationship Specialty Start Date End Date Tian Chan MD [address] [place] [address] PCP - General Internal Medicine 10/04/15 documented as of this encounter
--- NOTE | 2025-03-23 13:44 | MHC.AMDMED ---
Intake Intake Visit Reasons: 60 mins Contact Acid Plant Operator Helper Required: No Accompanied by: Self / Same As Patient Allergies almond Allergy (Severe, Verified 02/16/25 15:42) THROAT CLOSES UP divalproex sodium (From [place]PAK[place]) Allergy (Unknown, Verified 02/16/25 15:42) HIVES HPI Comprehensive Diabetes Asmnt Most Recent Diabetes Results: Microalb/Creat Ratio, (<30) 78.9 ug/mg cr H 02/17/25 Cholesterol, (<200) 139 mg/dL 02/17/25 HDL Cholesterol, (>40) 55 mg/dL 02/17/25 Triglycerides, (<150) 79 mg/dL 02/17/25 Creatinine, (0.5-1.4) 1.14 mg/dL 02/17/25 BUN, (9-16) 12 mg/dL 04/01/24 Sodium, (135-145) 142 mmol/L 04/01/24 Potassium, (3.3-5.1) 4.3 mmol/L 04/01/24 Chloride, (96-108) 105 mmol/L 04/01/24 Carbon Dioxide, (22-29) 30 mmol/L H 04/01/24 Calcium, (8.4-10.2) 9.9 mg/dL Δ 04/01/24 AST, (5-37) 40 U/L H 02/17/25 ALT, (0-40) 19 U/L 02/17/25 Total Protein, (6.5-8.0) 6.9 g/dL 04/01/24 Albumin, (3.5-5.0) 4.4 g/dL 04/01/24 [facility] Medical History Mass of buttock History of anal dysplasia Sleep apnea Vitamin D deficiency 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 Diabetic nephropathy associated with type 1 diabetes mellitus Diabetic polyneuropathy associated with type 1 diabetes mellitus Diabetes type 1, uncontrolled AIN grade II Hyperlipidemia Hypertension Diabetes mellitus Surgical History History of excision of mass (~02/11/23) History of excision of lesion History of colonoscopy (~2013) Family History Father History of hypertension Mother History of diabetes mellitus History of cardiovascular disorder History of hypertension Son History of muscular dystrophy Maternal Uncle History of prostate cancer Social History Household Members: Spouse Alcohol intake: current Alcohol intake frequency: holidays/special occasions only Patient Tobacco Use Status: Never used Tobacco e-Cigarette/Vaping Use: Currently Using Substance Use Type: Former Substance User and Marijuana Current occupational status: employed 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 -auto mode verses manual mode - Dexcom G6 versus Dexcom G7 Patient continues to take pump out of auto mode, to set temp basal when glucose levels running high. He is frequently forgetting to put pump back into auto mode, which contributes to risk of both hypo and hyperglycemia At today's visit we discussed the advantages of switching from Dexcom G6 to Dexcom G7 sensor. Patient agreed that next time he gets call from [employer] he will ask them to send Dexcom G7 sensors. At that time when he receives sensors he will set up education appointment for Dexcom G7 teaching. Setting verified by [facility], No changes to insulin pump made today Basal rate(s) (units/hour) : 12 AM to 12 AM 0.7 units / hr 2 PM? to 12 AM ? 1 units / hr? Bolus setting Insulin Carbohydrate Ratio (s) 12 AM? to? 12 AM? 1:14 Correction Factor / Sensitivity Factor 12 AM-5:30 AM 1:56 5:30 AM to 12 AM 1:48 Target: 110 mg/dL Target threshold 110 mg/dL Active Insulin Time:?3.5 hours Coding Level of Care Code Est Pt Level 1 (70658) Diagnoses Uncontrolled type 1 diabetes mellitus with hyperglycemia E10.65 Glycemic state: with hyperglycemia
--- OUTSIDE RECORDS SUMMARY | 2025-03-23 16:03 | XMS_ITS | Clinical Summary ---
Author Organization [employer] Address [address] [place] [address] Care Team Providers Care Professor Of Religion Name Role Phone Tian Chan MD Primary [...] Active Problems Problem Noted Date Diagnosed Date Anemia 03/18/2025 Assessment & Plan (03/18/2025 1:14 PM EDT): CBC 02/17/2025 showed anemia Iron studies, B12 and folate ordered Referred to GI for EGD/Colonoscopy. Pt is overdue for colonoscopy as well ( q 5 yrs given history of TA) Ganglion cyst of wrist, right 11/19/2024 Assessment [...] x 6 months. 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 [...] x 6 months. 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 [...] x 6 months. 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 On exam he has decreased ROM Etiology ? DJD, Impingement Sx ? Plan: Plain films right shoulder, Cannot take NSAIDS Ortho for consideration of steroid injection Restless legs syndrome 11/15/2022 Assessment & Plan (11/15/2022 3:01 PM EDT): Pt states it has resolved no longer on [facility] 11/15/2022 Assessment & Plan (11/19/2024 3:20 PM EDT): PSA 12/31/2023: Normal Colonoscopy with tubular adenoma Mar 2014. 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 Hgb A1c 03/18/2025 : 6.7 from 6.4 Eye exam done on: 01/09/[address] Urvashi Whyte in the past he was seen by Dr Gonzalez (brake drum molder) Darian mod Diabetic retinopathy. referred to [facility] Microalbumin checked on: 02/17/2025 was: 119 Pt on an MENDOZA inhibitor. Foot check risk of 1 Pt reports compliance with Asa 81 mg po daily Pt advised to: adhere to diabetic diet check your blood sugars regularly check your feet on a daily basis. Assessment & Plan (11/19/2024 3:17 PM EDT): Pt here for a f/u Pt is under the care of telecommunications sales representative , seen 11/05/2024 He is on: Insulin pump as per Endocrinology being treated with the Omnipod 5 pump with Dexcom G6 with good glycemic control . Follow with endocrinology in 3 months' time. Hgb A1c 11/19/2024 : 6.4 Eye exam done on: 01/09/[address] Urvashi Whyte in the past he was seen by Dr Gonzalez (brake drum molder) Dx mod Diabetic retinopathy. referred to [facility] Microalbumin checked on: 11/19/2023 was: 18 Pt on an MENDOZA inhibitor. Foot check risk of 1 Pt reports compliance with Asa 81 mg po daily Pt advised to: adhere to diabetic diet check your blood sugars regularly check your feet on a daily basis. Assessment & Plan (01/16/2024 3:12 PM EDT): Pt here for a f/u Pt is under the care of telecommunications sales representative , seen 01/08/2024 He is on: Insulin pump as per Endocrinology being treated with the Omnipod 5 pump with Dexcom G6 with good glycemic control . Follow with endocrinology in 3 months' time. Hgb A1c 10/15/2023: 10/15/2023 Eye exam done on: 09/[address] Urvashi Whyte in the past he was seen by Dr Gonzalez (brake drum molder) Dx mod Diabetic retinopathy. referred to [facility] Microalbumin checked on: 02/06/2020 was: 30 Pt on an MENDOZA inhibitor. Foot check risk of 1 Pt reports compliance with Asa 81 mg po daily Pt advised to: adhere to diabetic diet check your blood sugars regularly check your feet on a daily basis. Assessment & Plan (10/15/2023 11:13 AM EDT): Pt here for a f/u Pt is under the care of telecommunications sales representative , seen 10/09/2023 He is on: Insulin pump as per Endocrinology being treated with the Omnipod 5 pump with Dexcom G6 with good glycemic control . Follow with endocrinology in 3 months' time. Hgb A1c 10/15/2023: 10/15/2023 Eye exam done on: 09/[address] Urvashi Whyte in the past he was seen by Dr Gonzalez (brake drum molder) Dx mod Diabetic retinopathy. referred to [facility] Microalbumin checked on: 02/06/2020 was: 30 Pt on an MENDOZA inhibitor. Foot check risk of 1 Pt reports compliance with Asa 81 mg po daily Pt advised to: adhere to diabetic diet check your blood sugars regularly check your feet on a daily basis. Assessment & Plan (11/15/2022 2:06 PM EDT): Pt here for a f/u Pt is under the care of telecommunications sales representative , seen 11/13/2022 He is on: Insulin pump as per Endocrinology Hgb A1c 11/15/2022: Eye exam done on: 09/[address] Urvashi Whyte in the past he was seen by Dr Gonzalez (brake drum molder) Dx mod Diabetic retinopathy. referred to [facility] Microalbumin checked on: 02/06/2020 was: 30 Pt on an MENDOZA inhibitor. Foot check risk of 1 Pt reports compliance with Asa 81 mg po daily Pt advised to: adhere to diabetic diet check your blood sugars regularly check your feet on a daily basis. Mild intermittent asthma 08/16/2016 Assessment & Plan (03/18/2025 1:03 PM EDT): PFTS suggestive of this Currently doing well Pro-Air HFA prn No recent exacerbations Assessment & Plan (11/15/2022 2:10 PM EDT): PFTS suggestive of this Currently doing well Pro-Air HFA prn Hypertension 05/20/2013 Assessment & Plan (03/18/2025 1:01 PM EDT): Here for a f/u BP controlled He [...] loss. f/u 4 months Assessment & Plan (11/19/2024 3:18 PM EDT): [...] 12/01/2012 Mixed hyperlipidemia 10/27/2012 Assessment & Plan (03/18/2025 1:01 PM EDT): Here for a f/u Patient [...] goal for weight loss. Assessment & Plan (11/19/2024 3:19 PM EDT): [...] goal for weight loss. Diabetic retinopathy 10/27/2012 Assessment & Plan (03/18/2025 1:03 PM EDT): Being followed by [facility] Chronic hyperkalemia 10/14/[address] 09/03/2012 Assessment & Plan (03/18/2025 1:02 PM EDT): As per Endocrinology Bipolar disorder 03/24/2012 Assessment & Plan (11/19/2024 3:27 PM EDT): Here for a f/u No longer seeing a psychiatrist He denies any current SI/HI He has the number for crisis and contracts for safety No longer taking any medications. No longer going to [facility] since 01/2024 Pt tells me he is been vaping marihiuana and that helos him more than the meds he was on. 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 [address] [place] [address] Tian Chan MD Pre-visit Planning (SDOH was already completed) 02/17/2025 Orders Only GENERIC EXTERNAL DATA DEPARTMENT Provider, Generic External Data 02/16/2025 Orders Only GENERIC EXTERNAL DATA DEPARTMENT Provider, Generic External Data 02/10/[address] [phone] Tian Chan MD Appointment Confirmation 01/11/2025 Refill [facility] [address] [place] [phone] Tian Chan MD Essential (primary) hypertension; Hyperlipidemia, unspecified from Last 3 Months Immunizations Immunization Administration Dates Next Due Hep B, adult 04/04/2009 Influenza injectable quadriv alent preservative free 04/10/2022,06/15/2021,02/26/2020 Influenza, seasonal, injecta ble, preservative free 03/18/2025 Pneumococcal Polysaccharide PPSV23 02/26/2020,,06/09/2003 TD (adult), 2 [...] 20 03/18/2025 1:02 PM EDT Oxygen Saturation 98% 11/19/2024 2:54 PM EDT Inhaled Oxygen Concentration - - Weight 73.4 kg (161 lb 12.8 oz) 03/18/2025 1:02 PM EDT Height 167.6 cm (5' 6 ) 03/18/2025 1:02 PM EDT Body Mass Index 26.12 03/18/2025 1:02 PM EDT Plan of Treatment Upcoming Encounters Date Type Department Care Team (Late st Contact Info) Description 05/19/2025 2:30 PM EST Office Visit [facility] [address] [place], [place] [phone] Jhonathan, Urvashi, OD [address] [place] [address] Health Maintenance Due Date Last Done Comments CT Colonography 1968 FIT DNA/Cologuard 1968 FIT 1968 FOBT 1968 Sigmoidoscopy 1968 Diabetes: Foot Exam 1978 Hepatitis B Vaccines (2 of 3 - 19+ 3-dose series) 05/02/2009 04/04/2009 Colonoscopy 06/23/2024 06/23/2019 Colorectal Cancer Screening 06/23/2024 Eye Exam 01/08/2025 01/09/2024, 12/16, 01/09/2024, Additional history exists COVID-19 Vaccine ( season) 2025 06/27/2021, 09/06/2020, 08/09/2020 Diabetes: Hemoglobin A1C 06/18/2025 025, 11/19/2024, 10/15/2023, Additional history exists SDOH Screening 11/12/2025 11/12/2024 Alcohol/Substance Use Screening 11/19/2025 11/19/2024 Depression Screening 11/19/2025 11/19/2024, 11/20/19 25 Disability Screening 11/19/2025 11/19/2024 Pneumococcal Vaccine: 50+ Years (2 of 2 - PCV) 11/19/2025 02/26/2020, 01/01/2008, 06/09/2003 Postponed from 02/25/2021 (Patient Refused) Tobacco Screening 11/19/2025 11/19/2024 Diabetes: Urine Protein Screening 02/17/2026 02/17/2025, 11/19/2023, 09/14/2023, Additional history exists Lipid Panel 02/17/2026 02/17/2025, 03/17, 11/17/2022, Additional history exists DTaP/Tdap/Td Vaccines (2 - Td or Tdap) 05/27/2028 05/27/2018, 01/11/2012, 03/31/2007, Additional history exists RSV Patients and Patients Aged 60 years or older (1 - 1-dose 75+ series) 2043 HIV Screening Completed 11/17/2022 Hepatitis C Screening Completed 11/17/2022 Zoster Vaccines Completed 05/19/2024, 03/05/2024 Influenza Vaccine Completed 03/18/2025, , 06/15/2021, Additional history exists HIB Vaccines Aged Out No longer eligi [...] of 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 edema (HCC) TSH Routine 02/17/2025 8:10 AM EDT T4, FREE Routine 02/17/2025 8:10 AM EDT LIPID PANEL, STANDARD Routine 02/17/2025 8:10 AM EDT ALT Routine 02/17/2025 8:10 AM EDT AST Routine 02/17/2025 8:10 AM EDT CREATININE, SERUM Routine 02/17/2025 8:1 0 AM EDT CBC Routine 02/17/2025 8:10 AM EDT ALBUMIN, RANDOM URINE W/CREATININE Routine 02/17/2025 8:02 AM EDT GLUCOSE, WHOLE BLOOD Routine 02/16/2025 3:45 PM EDT HEPATITIS C ANTIBODY REFLEX Routine 11/17/2022 10:25 AM EDT HIV ANTIBODY/ANTIGEN ([facility] D[facility]) Routine 11/17/2022 10:25 AM EDT HM COLONOSCOPY Routine 06/23/2019 from Last 3 Months or Most Recently Relevant to Health Maintenance Results * (ABNORMAL) POCT Hgb A1c (03/18/2025 1:13 PM EDT) Hemoglobin A1C 6.7(A) 4.0 - 5.7 % QC Media Lot # [id number] Lot# Expiration Date Blood 03/18/2025 1:13 PM EDT Tian Spicer MD POINT OF CARE TEST EN TER/EDIT ORDERABLES Final Result * (ABNORMAL) POCT Glucose (03/18/2025 1:03 PM EDT) Pathologist [facility] Glucose Blood, POC 280(A) 60 - 200 mg/dL QC Media Lot # [id number] Lot# Expiration Date Blood Capillary blood specimen / Unknown 03/18/2025 1:03 PM EDT Tian Spicer MD POINT OF CARE TEST EN TER/EDIT ORDERABLES Final Result * Creatinine, Serum (02/17/2025 8:10 AM EDT) Pathologist [facility] Creatinine, Serum 1.14 0.5 - 1.4 mg/dL [facility] Estimated Glomerular Filt Rate >60 [facility] Comment:Chronic Kidney Disea se: Estimated GFR < 60 mL/min/[id number] Kidney Disease: Estimated GFR < 15 mL/min/1.73m2 02/17/2025 8:10 AM EDT 02/17/2025 8:10 AM EDT Generic External Data Provider LAB BLOOD ORDERAB LES Final Result [facility] [address] [place] [phone] * (ABNORMAL) CBC (02/17/2025 8:10 AM EDT) White Blood Count 4.9 4.8 - 10.8 X10*3/uL [facility] Red Blood Count 3.57(L) 4.60 - 5.80 X10*6/uL [facility] Hemoglobin 11.5(L) 14.0 - 18.0 g/dl [facility] Hematocrit 35.3(L) 42.0 - 52.0 % [facility] Mean Corpuscular Volume 98.9(H) 80.0 - 98.0 fL [facility] Mean Corpuscular Hemoglobin 32.2 27.0 - 33.0 pg [facility] Mean Corpuscular HGB Conc 32.6 31.0 - 36.0 g/dl [facility] Red Cell Distribution Width 13.7 11.0 - 16.0 % [facility] Platelet Count 284 160 - 400 X10*3/uL [facility] Mean Platelet Volume 9.4 9.4 - 12.4 fL [facility] NRBC Pct Auto 0.0 0.0 - 0.2 /100WBC [facility] NRBC Abs Auto 0.000 0.0 - 0.012 X10*3/uL [facility] 02/17/2025 8:1 0 AM EDT 02/17/2025 8:10 AM EDT us Generic External Data Provider LAB BLOOD ORDERAB LES Final Result Performing Organization Address [facility] de Phone Number [facility] [address] [place] [address] [phone] * ALT (02/17/2025 8:10 AM EDT) Alanine Aminotransferase 19 0 - 40 U/L [facility] 02/17/2025 8:10 AM EDT 02/17/2025 8:10 AM EDT us Generic External Data Provider LAB BLOOD ORDERAB LES Final Result Performing Organization Address [facility] Co de Phone Number [facility] [address] [place] [address] [phone] * (ABNORMAL) AST (02/17/2025 8:10 AM EDT) Aspartate Amino Transferase 40(H) 5 - 37 U/L [facility] 02/17/2025 8:10 AM EDT 02/17/2025 8:10 AM EDT us Generic External Data Provider LAB BLOOD ORDERAB LES Final Result Performing Organization Address [facility] Co de Phone Number [facility] [address] [place] [phone] * TSH (02/17/2025 8:10 AM EDT) Thyroid Stimulating Hormone 2.79 0.32 - 4.0 uIU/mL [facility] Comment:Note: A sustained TS H level above 2.5 uIU/mL may warrant further investigation. TSH 3rd Generation ([facility]) 02/17/2025 8:10 AM EDT 02/17/2025 8:10 AM EDT Generic External Data Provider LAB BLOOD ORDERAB LES Final Result Performing Organization Address [facility] Co de Phone Number [facility] [address] [place] [address] [phone] * T4, Free (02/17/2025 8:10 AM EDT) Free T4 (Free Thyroxine) 0.88 0.71 - 1.85 ng/dL [facility] 02/17/2025 8:10 AM EDT 02/17/2025 8:10 AM EDT us Generic External Data Provider LAB BLOOD ORDERAB LES Final Result Performing Organization Address [facility] Co de Phone Number [facility] [address] [place] [address] [phone] * Lipid Panel, Standard (02/17/2025 8:10 AM EDT) Triglycerides 79 <150 mg/dL [facility] Comment:Desirable Triglyceri de: less than 150 mg/dLBorderline High Triglyceride 150-199 mg/dLHigh Triglyceride: 200-499 mg/dLVery High Triglyceride: greater than or equal to 5OO mg/dL Cholesterol 139 <200 mg/dL [facility] Comment:Desirable Cholestero l: less than 200 mg/dLBorderline High Cholesterol: 200-239 mg/dLHigh Cholesterol: greater than 239 mg/dL LDL Cholesterol Calculated 69 <100 mg/dL [facility] Comment:Desirable LDL: less than 100 mg/dLNear Optimal/Above Optimal LDL: 110- 129 mg/dLBorderline High LDL: 130-159 mg/dLHigh LDL: 160-189 mg/dLVery High LDL: greater than or equal to 190 mg/dL HDL Cholesterol 55 >40 mg/dL [facility] Comment:Desirable HDL: great er than 40 mg/dL Note: This HDL assay may give artificially low results in patients with liver disease. 02/17/2025 8:10 AM EDT 02/17/2025 8:10 AM EDT us Generic External Data Provider LAB BLOOD ORDERAB LES Final Result Performing Organization Address [facility] Co de Phone Number [facility] [address] [place] [address] [phone] * (ABNORMAL) Albumin, Random Urine W/Creatinine (02/17/2025 8:02 AM EDT) Creatinine, Urine 150.65 mg/dL [facility] Microalbumin Urine 119.0 mg/L [facility] Microalbum Creatinine Ratio Ur 78.9(H) <30 ug/mg cr [facility] Comment:Albumin/Creatinine R atio Reference Ranges: Normal: < 30 ug/mg creatinine Microalbuminuria: 30 - 300 ug/mg creatinineClinical Albuminuria: > 300 ug/mg creatinine 02/17/2025 8:02 AM EDT 02/17/2025 8:42 AM EDT us Generic External Data Provider LAB URINE ORDERAB LES Final Result Performing Organization Address [facility] Co de Phone Number [facility] [address] [place] [phone] * (ABNORMAL) Glucose, Whole Blood (02/16/2025 3:45 PM EDT) Glucose, Whole Blood 124(H) 60 - 115 mg/dL [facility] Comment:METER #: [id number] 0Testing performed in the Endocrinology Department [address] , [address], [place]. 02/16/2025 3:45 PM EDT 02/16/2025 4:02 PM EDT Generic External Data Provider LAB BLOOD ORDERAB LES Final Result Performing Organization Address [facility]/ZIP Co de Phone Number [facility] [address] [place] [address] [phone] * Hepatitis C Antibody Reflex (11/17/2022 10:25 AM EDT) Hepatitis C Antibody Nonreactive Nonreactive [facility] Comment:Antibodies to HCV no t detected; does not exclude early acuteHCV infection. 11/17/2022 10:2 5 AM EDT 11/17/2022 10:25 AM EDT [facility] External Provider LAB BLO OD ORDERABLES Final Result Performing Organization Address [facility] de Phone Number [facility] [address] [place] [address] [phone] * HIV Ab/Ag ([facility]) (11/17/2022 10:25 AM EDT) HIV AB/AG Nonreactive Nonreactive [facility] Comment:HIV-1 p24 Ag and/or HIV-1/HIV-2 Ab not detected.A test result that is nonreactive does not exclude thepossibility of exposure to or infection with HIV-1 and/orHIV-2. Nonreactive results in this assay for individualswith prior exposure to HIV-1 and/or HIV-2 may be due toantigen and antibody levels that are below the limit ofdetection of this assay.[employer] HIV Ag/Ab Combo assay result andsupplemental assay results should be interpreted inconjunction with the patient's clinical presentation,history and other laboratory results. If the results areinconsistent with clinical evidence, additional testing issuggested to confirm the result. 11/17/2022 10:2 5 AM EDT 11/17/2022 10:25 AM EDT [facility] External Provider LAB BLO OD ORDERABLES Final Result [facility] [address] [place] [phone] * Colonoscopy (06/23/2019) Colonoscopy Normal Normal 06/23/2019 Narrative Gloria Rai - 06/23/2019 Recommended 5 year follow up Historical Provider MD HEALTH MAINTENANCE Edited Result - Final from Last 3 Months or Most Recently Relevant to Health Maintenance Insurance [facility] STANDARD Care Teams Professor Of Religion Relationship Specialty Start Date End Date Tian Chan MD [address] [place] [phone] PCP - General Internal Medicine 10/04/15
--- OUTSIDE RECORDS SUMMARY | 2025-03-23 16:03 | XMS_ITS | Encounter Summary ---
Author Organization [employer] Address [address] [facility] [address] [place] [address] Care Team Providers Care It Architecture Consultant Name Role Phone Tian Chan MD Primary Care Provide r Encounter Details Date Type Department Care Team (Latest Contact Info) Description 10/17/2021 Abstract [facility] CONVERSIONS Dental, Provider, DDS Social History [...] Description 05/19/2025 2:30 PM EST Office Visit [facility] [address] [place] [address] Jhonathan, Urvashi, OD [address] [place] [address] documented as of this encounter Visit Diagnoses Not on filedocumented in this encounter Care Teams It Architecture Consultant Relationship Specialty Start Date End Date Tian Chan MD [address] [place] [address] PCP - General Internal Medicine 10/04/15 documented as of this encounter
--- OUTSIDE RECORDS SUMMARY | 2025-03-23 16:03 | XMS_ITS | Encounter Summary ---
Author Organization [employer] Address [address] [facility] [address] [place] [address] Care Team Providers Care Support Architect Name Role Phone Tian Chan MD Primary Care Provide r Encounter Details Date Type Department Care Team (Latest Contact Info) Description 03/18/2025 Travel Social History Tobacco Use Types Packs/Day Years Used Date Smoking Tobacco: Never Passive Smoke Exposure: Never Smokeless Tobacco: Never Depression Answer Date Recorded Patient Health Questionnaire-9 Score 0 11/19/2024 Patient Health Questionnaire-9 Score 0 11/19/2024 Last PHQ-9: Questionnaire Data Not on file 0 11/19/2024 Housing Stability Answer Date Recorded What is your housing situation today? I have mary yinka 11/12/[address] you li [...] Description 05/19/2025 2:30 PM EST Office Visit [facility] [address] [place] [address] Jhonathan, Urvashi, OD [address] [place], [place] [phone] documented as of this encounter Visit Diagnoses Not on filedocumented in this encounter Additional Health Concerns Assessment Noted Time PHQ-9 Depression Total Score: 0 11/20/19 25 2:56 PM EDT documented as of this encounter Care Teams Support Architect Relationship Specialty Start Date End Date Tian Chan MD [address] [place] [phone] PCP - General Internal Medicine 10/04/15 documented as of this encounter
--- OUTSIDE RECORDS SUMMARY | 2025-03-23 16:03 | XMS_ITS | Encounter Summary ---
Author Organization [employer] Address [address] [facility] [address] [place] [address] Care Team Providers Care Hop Weigher Name Role Phone Tian Chan MD Primary Care Provide r Encounter Details Date Type Department Care Team (Late st Contact Info) Description 10/25/2022 Abstract [facility] [address] [place], [place] [phone] Tian Chan MD [address] [place] [address] Social History Tobacco Use Types Packs/Day Years [...] Description 05/19/2025 2:30 PM EST Office Visit [facility] [address] [place], [place] [phone] Jhonathan, Urvashi, OD [address] [place], [place] [phone] documented as of this encounter Procedures Procedure Name Priority Date/Time Associated Diagnosis Comments COLONOSCOPY Routine 06/23/2019 documented in this encounter Results * Colonoscopy (06/23/2019) Colonoscopy Normal Normal 06/23/2019 Gloria West - 06/23/2019 Recommended 5 year follow up us Historical Provider HEALTH MAINTENANCE Edited Result - Final documented in this encounter Visit Diagnoses Not on filedocumented in this encounter Care Teams Hop Weigher Relationship Specialty Start Date End Date Tian Chan MD [address] [place] [phone] PCP - General Internal Medicine 10/04/15 documented as of this encounter
--- OUTSIDE RECORDS SUMMARY | 2025-03-23 16:03 | XMS_ITS | Encounter Summary ---
Author Organization [employer] Address [address] [facility] [address] [place] [address] Care Team Providers Care Tipple Boss Name Role Phone Tian Chan MD Primary Care Provide r Encounter Details Date Type Department Care Team (Late st Contact Info) Description 08/20/2022 Orders Only [facility]ED[facility] [address] [place] [address] Harriet Garcia LPN Social History Tobacco Use [...] Description 05/19/2025 2:30 PM EST Office Visit [facility] OPTOMETRY [address] [place] [address] Urvashi Ring, OD [address] [place] [address] documented as of this encounter Visit Diagnoses Not on filedocumented in this encounter Care Teams Tipple Boss Relationship Specialty Start Date End Date Tian Chan MD [address] [place] [address] PCP - General Internal Medicine 10/04/15 documented as of this encounter
== END 2025-03-23 14:01 | disposition home or self-care (01) ==
LOC: HO.ENCR 13:06
PROVIDERS: PCP Internal Medicine; Visit Provider Registered Nurse Diabetes Educator
DX: E10.65 Type 1 diabetes mellitus with hyperglycemia (principal)
CPT/HCPCS: 99499

== ENCOUNTER 2025-03-24 08:42 | Outpatient (REF) | payer OTHER, MEDICAID, SELFPAY ==
[2025-03-24 12:00] LABS: Alanine Aminotransferase 27 U/L (0-40); Albumin Level 4.2 g/dL (3.5-5.0); Alkaline Phosphatase 65 U/L (39-117); Anion Gap 7 (12-20); Aspartate Amino Transferase 29 U/L (5-37); Blood Urea Nitrogen 18 mg/dL (9-16); Calcium 9.2 mg/dL (8.4-10.2); Carbon Dioxide 28 mmol/L (22-29); Chloride 109 mmol/L (96-108); Cholesterol 145 mg/dL (<200); Estimated Glomerular Filt Rate > 60; HDL Cholesterol 53 mg/dL (>40); Iron 81 mcg/dL (45-160); Percent Iron Saturation 35 % (15-50); Potassium 4.2 mmol/L (3.3-5.1); Sodium 140 mmol/L (135-145); Total Iron Binding Capacity 234 mcg/dL (228-428); Total Protein 6.6 g/dL (6.5-8.0); Triglycerides 56 mg/dL (<150); Unsaturated Iron Binding 153 ug/dL
[2025-03-24 12:29] LABS: Folate 10.0 ng/mL (> or = 4.0); Vitamin B12 633 pg/mL (200-900)
== END 2025-03-24 08:43 | disposition home or self-care (01) ==
LOC: HO.HHCL 08:42
PROVIDERS: PCP Internal Medicine; Visit Provider Internal Medicine
DX: E10.42 Type 1 diabetes mellitus with diabetic polyneuropathy (principal); D64.9 Anemia, unspecified; I10 Essential (primary) hypertension; E78.2 Mixed hyperlipidemia
CPT/HCPCS: 36415; 80053; 80061; 82607; 82746; 83540

== ENCOUNTER 2025-05-20 08:59 | Outpatient (AMB) | payer OTHER, MEDICAID, SELFPAY ==
--- OUTSIDE RECORDS SUMMARY | 2025-05-19 14:30 | XMS_ITS | Encounter Summary ---
Author Organization [employer] Address [address] [place] [address] Care Team Providers Care Cement Worker Name Role Phone Tian Chan MD Primary Care Provide r Reason for Visit * Reason Comments Diabetic Eye Exam Encounter Details Date Type Department Care Team (Latest Contact Info) Description 05/19/2025 2:30 PM EST Office Visit [facility] OPTOMETRY [address] [place] [address] Jhonathan, Urvashi, OD [address] [place] [address] Mild nonproliferative diabetic retinopathy of 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 edema associated with type 1 diabetes mellitus (HCC) (Primary Dx); History of panretinal photocoagulation; Hypertensive retinopathy of both eyes; Early cataracts, bilateral; Presbyopia Social History Tobacco Use Types Packs/Day Years Used Date Smoking Tobacco: Never Passive Smoke Exposure: Never Smokeless Tobacco: Never Alcohol Use Standard Drinks/Week Comments Never 0 (1 standard drink = 0.6 oz pur e alcohol) Depression Answer Date Recorded Patient Health Questionnaire-9 Score 0 11/19/2024 Patient Health Questionnaire-9 Score 0 11/19/2024 Last PHQ-9: Questionnaire Data Not on file 0 11/19/2024 Housing Stability Answer Date Recorded What is your housing situation today? I have maryjose r honeycutt 11/12/[address] you [...] Care Team (Late st Contact Info) Description 06/29/2025 2:30 PM EST Office Visit [facility] MEDICINE [address] [place] [address] Tian Chan MD [address] [place] [phone] Pending Results Name Type Priority Associated Diagnoses Date /Time Fundus Photos - OU - Both Eyes Ophthalmology Routine Mild nonproliferative diabetic retinopathy of 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 edema associated with type 1 diabetes mellitus (HCC) 05/19/2025 4:22 PM EST documented as of this encounter Visit Diagnoses Diagnosis Mild nonproliferative diabetic retinopathy of 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 edema associated with type 1 diabetes mellitus (HCC)- Primary History of panretinal photocoagulation Hypertensive retinopathy of both eyes Hypertensive retinopathy Early cataracts, bilateral Presbyopia documented in this encounter Additional Health Concerns Assessment Noted Time PHQ-9 Depression Total Score: 0 11/20/19 25 2:56 PM EDT documented as of this encounter Care Teams Cement Worker Relationship Specialty Start Date End Date Tian Chan MD [address] [place] [address] PCP - General Internal Medicine 10/04/15 documented as of this encounter
--- NOTE | 2025-05-20 09:09 | MHC.OFFVIS ---
Vital Signs 05/20/25 09:12 Height 5 ft 5 in Weight 159 lb 13.362 oz BMI 26.6 BP 140/66 H Blood Pressure Location Rt brachial Position Sitting Pulse 96 Pulse Source Pulse Oximeter Pulse Oximetry (%) 74 L Oxygen Delivery Method Room Air Intake Visit Reasons: Diabetes Type 1 Intake Note: Patient present today for Type 1 Diabetes Mellitus Last Diabetic eye exam: 05/19/2025 [facility] Last Podiatry Visit: Doesn't have one Random Glucose: 106 mg/dl HgA1C: 6.9% 05/20/2025 Dental Equipment Installer And Servicer Required: No Accompanied by: Self / Same As Patient Allergies almond Allergy (Severe, Verified 05/20/25 09:12) THROAT CLOSES UP divalproex sodium (From DEPAKOTE) Allergy (Unknown, Verified 05/20/25 09:12) HIVES Medication List - Last Reconciled 05/20/25 by Peña Garcia MD acetone (urine) test (Ketone Urine Test strips) As directed glucose over 250, illness, nausea, vomiting alcohol swabs 2 pad topically; every 3 days for insulin pump blood sugar diagnostic (FreeStyle Lite Strips) DIRECTED TO TEST BLOOD SUGAR FOUR TIMES DAILY blood-glucose meter (FreeStyle Lite Meter kit) USE DIRECTED TO TEST BLOOD SUGAR FOUR TIMES DAILY. blood-glucose sensor (Dexcom G6 Sensor device) As directed every 10 days blood-glucose transmitter (Dexcom G6 Transmitter device) As directed every 90 days gabapentin 800 mg PO BID 30 days MDD 1600 glucagon 3 mg/actuation (Baqsimi) 3 mg intranasal ONCE insulin glargine (Lantus U-100 Insulin) 16 units (0.16 mL) subcut DAILY PRN 30 days MDD 18 units insulin lispro up to 100 units via continuous infusion via insulin pump subcutaneously daily; 30 days insulin pump cart,auto,BT-cntr (Omnipod 5 G6 Intro Kit (Gen 5) subcutaneous cartridge with controller) As directed insulin pump cart,automated,BT As directed change every 72 hrs insulin pump cart,cont inf,BT (Omnipod Dash Pods (Gen 4) subcutaneous cartridge) Replace pod every 48 hours insulin syringes (disposable) As directed injects 4 X/day in case of pump failure lancets (FreeStyle Lancets) As directed tests 4X/day lisinopril 40 mg PO DAILY 90 days rosuvastatin 40 mg PO DAILY 90 days HPI Comments Details: Patient is 54-year-old male with DM type 1 diagnosed at 7 years of age who presents for management of diabetes. He was last seen 02/16/[address] Yung Past medical history: Diabetes type 1, bipolar disorder hypertension hyperlipidemia Micro and macrovascular complications: Retinopathy, nephropathy Diabetes medications: Omnipod pump 5 and Dexcom G 6 with Humalog insulin. 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 to 12 AM ? 1.15 units / hr? Bolus setting Insulin Carbohydrate Ratio (s) 12 AM? to? 11 AM? 1:8 11 AM to 3 PM 1:9 3 PM to 12 AM 1:8 Correction Factor / Sensitivity Factor 12 AM-5:30 AM 1:56 5:30 AM to 12 AM 1:48 Target: 110 mg/dL Target threshold 110 mg/dL Dexcom average glucose: 151 14 day continuous glucose monitor report reviewed Glucose Managment indicator 6.9 % TIme in ranges: Four % very high (above 250) 26 % high ?(181-250) 65 % in range ?(70-180] 5 % low (69-55) 4 % ?very low (below 54) Interpretation' lows have occurred when he is over correcting [facility] Medical History Mass of buttock History of anal dysplasia Sleep apnea Vitamin D deficiency 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 Diabetic nephropathy associated with type 1 diabetes mellitus Diabetic polyneuropathy associated with type 1 diabetes mellitus Diabetes type 1, uncontrolled AIN grade II Hyperlipidemia Hypertension Diabetes mellitus Surgical History History of excision of mass (~02/11/23) History of excision of lesion History of colonoscopy (~2013) Family History Father History of hypertension Mother History of diabetes mellitus History of cardiovascular disorder History of hypertension Son History of muscular dystrophy Maternal Uncle History of prostate cancer Social History Household Members: Spouse Alcohol intake: current Alcohol intake frequency: holidays/special occasions only Patient Tobacco Use Status: Never used Tobacco e-Cigarette/Vaping Use: Currently Using Substance Use Type: Former Substance User and Marijuana Current occupational status: employed 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 Absence of acromegalic features. Neck exam reveals nl size thyroid about 15 gms. No thyroid nodules palpable. No carotid bruits present. Lungs CTA. Heart S1 S2, Reg R/R. No M/R/ G. Skin exam reveals absence of vitiligo or acanthosis nigricans. Abdominal exam reveals Soft NT/ND with NA BS. No organomegaly present. Extrem Other: Visual exam of foot performed. No ulcerations or open lesions. No onchomycosis, no callouses.Pulses 2 + distally. Sensation intact to monofilament exam. Vibratory sensation sensed 10 seconds in right, 10 seconds in left with 128 Hz tuning fork Results AMB Hemoglobin A1c AMB Hemoglobin A1c 6.9 % Last Edit by ATIF Carrasco on 05/20/25 09:29 Results Reviewed Results Reviewed: Laboratory Last Values Glucose (Clinic) 106 mg/dL (60-115) 05/20/25 09:19 Assessment & Plan Assessment & Plan (1) Diabetes type 1, uncontrolled: Code(s): E10.65 - Type 1 diabetes mellitus with hyperglycemia Category: Medical Qualifiers: Glycemic state: with hyperglycemia Qualified Code(s): E10.65 - Type 1 diabetes mellitus with hyperglycemia Plan: This is a 54-year-old male with history of type 1 diabetes being treated with the Omnipod 5 pump with Dexcom G6 with good glycemic control and known microvascular complications namely neuropathy. But significant hypoglycemia early afternoon The plan is to have the patient upgrade to a Dexcom G7. Will have pt try to bolus prior to meal to avoid overcorrection. Will have pt f/u with CDE and if this does not work may need to loosen the correction factor. Orders: Orders AMB Hemoglobin A1c Today E10.65 - Type 1 diabetes mellitus with hyperglycemia Coding Level of Care Code Complex visit Add On G2211 Diagnoses Uncontrolled type 1 diabetes mellitus with hyperglycemia E10.65 Glycemic state: with hyperglycemia
[2025-05-20 09:12] VITALS: BP 140/66; PULSE 96; O2SAT 74; BMI 26.6
[2025-05-20 09:23] LABS: Glucose, Whole Blood 106 mg/dL (60-115)
--- OUTSIDE RECORDS SUMMARY | 2025-05-20 09:45 | XMS_ITS | Encounter Summary ---
Author Organization [employer] Address [address] [facility] [address] [place] [address] Care Team Providers Care Courier Delivery Driver Name Role Phone Tian Chan MD Primary Care Provide r Encounter Details Date Type Department Care Team (Late st Contact Info) Description 05/20/2025 Orders Only GENERIC EXTERNAL DATA DEPARTMENT Provider, [...] Description 06/29/2025 2:30 PM EST Office Visit [facility] MEDICINE [address] [place] [address] Tian Chan MD [address] [place] [address] documented as of this encounter Procedures Procedure Name Priority Date/Time Associated Diagnosis Comments GLUCOSE, WHOLE BLOOD Routine 05/20/2025 9:19 AM EST documented in this encounter Results * Glucose, Whole Blood (05/20/2025 9:19 AM EST) Glucose, Whole Blood 106 60 - 115 mg/dL [facility] Comment:METER #: [id number] Testing performed in the Endocrinology Department [address], [address], [facility]. 05/20/2025 9:19 AM EST 05/20/2025 9:23 AM EST us Generic External Data Provider LAB BLOOD ORDERAB LES Final Result [facility] [address] [place] [address] [phone] documented in this encounter Visit Diagnoses Not on filedocumented in this encounter Additional Health Concerns Assessment Noted Time PHQ-9 Depression Total Score: 0 11/20/19 25 2:56 PM EDT documented as of this encounter Care Teams Courier Delivery Driver Relationship Specialty Start Date End Date Tian Chan MD [address] [place] [address] PCP - General Internal Medicine 10/04/15 documented as of this encounter
--- OUTSIDE RECORDS SUMMARY | 2025-05-20 09:45 | XMS_ITS | Encounter Summary ---
Author Organization [employer] Address [address] [facility] [place] [address] Care Team Providers Care Cleaning Laborer Name Role Phone Tian Chan MD Primary Care Provide r Reason for Visit * Reason Comments Med Refill Encounter Details Date Type Department Care Team (Late st Contact Info) Description 05/14/2025 Refill [facility] [address] [place], [place] [phone] Harriet Cortez DO [address] [place], [place] [phone] Social History Tobacco Use Types Packs/Day Years [...] Description 06/29/2025 2:30 PM EST Office Visit [facility] MEDIC[facility] [address] [place] [address] Tian Chan MD [address] [place] [address] documented as of this encounter Visit Diagnoses Not on filedocumented in this encounter Additional Health Concerns Assessment Noted Time PHQ-9 Depression Total Score: 0 11/20/19 25 2:56 PM EDT documented as of this encounter Care Teams Cleaning Laborer Relationship Specialty Start Date End Date Tian Chan MD [address] [place] [address] PCP - General Internal Medicine 10/04/15 documented as of this encounter
--- OUTSIDE RECORDS SUMMARY | 2025-05-20 09:45 | XMS_ITS | Encounter Summary ---
Author Organization [employer] Address [address] [facility] [address] [place] [address] Care Team Providers Care Disassembler Product Name Role Phone Tian Chan MD Primary Care Provide r Encounter Details Date Type Department Care Team (Latest Contact Info) Description 05/19/2025 Travel Social History Tobacco Use Types Packs/Day [...] Description 06/29/2025 2:30 PM EST Office Visit [facility] MEDICINE [address] [place] [address] Tian Chan MD [address] [place] [address] documented as of this encounter Visit Diagnoses Not on filedocumented in this encounter Additional Health Concerns Assessment Noted Time PHQ-9 Depression Total Score: 0 11/20/19 25 2:56 PM EDT documented as of this encounter Care Teams Disassembler Product Relationship Specialty Start Date End Date Tian Chan MD [address] [place] [address] PCP - General Internal Medicine 10/04/15 documented as of this encounter
--- OUTSIDE RECORDS SUMMARY | 2025-05-20 09:46 | XMS_ITS | Clinical Summary ---
Author Organization [employer] Address [address] [facility] 7[address] [place] [address] Care Team Providers Care Privacy Attorney Name Role Phone Tian Chan MD Primary [...] mg by mouth at bedtime. 4 Active lisinopril 40 MG tabletIndications :Essential (primary) hypertension TAKE 1 TABLET BY MOUTH EVERY DAY 90 tablet 1 5 Active rosuvastatin (Crestor) 40 MG tabletIndications :Hyperlipidemia, unspecified TAKE 1 TABLET BY MOUTH EVERY DAY 90 tablet 1 Active metoclopramide (Reglan) 5 MG tablet Take 1 tablet (5 mg) by mouth 3 times daily. Take 30 min prior to meals 90 tablet 2 05/11/2025 3:41 PM EST 5 04/08/20 Active acetaminophen (Tylenol Extra Strength) 500 MG tablet Take 1 tablet (500 mg) by mouth every 6 (six) hours if needed for mild pain or fever. 40 tablet 1 5 04/08/20 Active Active Problems Problem Noted Date Diagnosed [...] x 6 months. 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 On [...] x 6 months. 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 On [...] x 6 months. 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 On exam he has decreased ROM Etiology ? DJD, Impingement Sx ? Plan: Plain films right shoulder, Cannot take NSAIDS Ortho for consideration of steroid injection Restless legs syndrome 11/15/2022 Assessment & Plan (11/15/2022 3:01 PM EDT): Pt states it has resolved no longer on [facility] 11/15/2022 Assessment & Plan (11/19/2024 3:20 PM [...] by Endocrinology Last seen 11/13/[address] Gracia 4 month f/u AIN grade II 11/14/2022 [...] f/u Pt is under the care of Machine Tool Technician Instructor , seen 02/16/2025 He is being treated with the Omnipod 5 pump with Dexcom G6 with good glycemic control . Hgb A1c 03/18/2025 : 6.7 from 6.4 Eye exam done on: 01/09/[address] Urvashi Whyte in the past he was seen by Dr Gonzalez (cathode ray tube assembler) Darian mod Diabetic retinopathy. referred to [facility] Microalbumin checked on: 02/17/2025 was: 119 Pt on an MENDOZA inhibitor. Foot check risk of 1 Pt reports compliance with Asa 81 mg po daily Pt advised to: adhere to diabetic diet check your blood sugars regularly check your feet on a daily basis. Assessment & Plan (11/19/2024 3:17 PM EDT): Pt here for a f/u Pt is under the care of jewel hole driller , seen 11/05/2024 He is on: Insulin pump as per Endocrinology being treated with the Omnipod 5 pump with Dexcom G6 with good glycemic control . Follow with endocrinology in 3 months' time. Hgb A1c 11/19/2024 : 6.4 Eye exam done on: 01/09/[address] Urvashi Whyte in the past he was seen by Dr Gonzalez (cathode ray tube assembler) Dx mod Diabetic retinopathy. referred to [facility] Microalbumin checked on: 11/19/2023 was: 18 Pt on an MENDOZA inhibitor. Foot check risk of 1 Pt reports compliance with Asa 81 mg po daily Pt advised to: adhere to diabetic diet check your blood sugars regularly check your feet on a daily basis. Assessment & Plan (01/16/2024 3:12 PM EDT): Pt here for a f/u Pt is under the care of jewel hole driller , seen 01/08/2024 He is on: Insulin pump as per Endocrinology being treated with the Omnipod 5 pump with Dexcom G6 with good glycemic control . Follow with endocrinology in 3 months' time. Hgb A1c 10/15/2023: 10/15/2023 Eye exam done on: 09/[address] Urvashi Whyte in the past he was seen by Dr Gonzalez (cathode ray tube assembler) Dx mod Diabetic retinopathy. referred to [facility] Microalbumin checked on: 02/06/2020 was: 30 Pt on an MENDOZA inhibitor. Foot check risk of 1 Pt reports compliance with Asa 81 mg po daily Pt advised to: adhere to diabetic diet check your blood sugars regularly check your feet on a daily basis. Assessment & Plan (10/15/2023 11:13 AM EDT): Pt here for a f/u Pt is under the care of jewel hole driller , seen 10/09/2023 He is on: Insulin pump as per Endocrinology being treated with the Omnipod 5 pump with Dexcom G6 with good glycemic control . Follow with endocrinology in 3 months' time. Hgb A1c 10/15/2023: 10/15/2023 Eye exam done on: 09/[address] Urvashi Whyte in the past he was seen by Dr Gonzalez (cathode ray tube assembler) Dx mod Diabetic retinopathy. referred to [facility] Microalbumin checked on: 02/06/2020 was: 30 Pt on an MENDOZA inhibitor. Foot check risk of 1 Pt reports compliance with Asa 81 mg po daily Pt advised to: adhere to diabetic diet check your blood sugars regularly check your feet on a daily basis. Assessment & Plan (11/15/2022 2:06 PM EDT): Pt here for a f/u Pt is under the care of jewel hole driller , seen 11/13/2022 He is on: Insulin pump as per Endocrinology Hgb A1c 11/15/2022: Eye exam done on: 09/[address] Urvashi Whyte in the past he was seen by Dr Gonzalez (cathode ray tube assembler) Dx mod Diabetic retinopathy. referred to [facility] Microalbumin checked on: 02/06/2020 was: 30 Pt [...] (03/18/2025 1:03 PM EDT): Being followed by [facility] Chronic hyperkalemia 10/14/[address] 09/03/2012 Assessment & Plan (03/18/2025 1:02 PM EDT): As per Endocrinology Bipolar disorder 03/24/2012 Assessment & Plan (11/19/2024 3:27 PM EDT): Here for a f/u No longer seeing a psychiatrist He denies any current SI/HI He has the number for crisis and contracts for safety No longer taking any medications. No longer going to [facility] since 01/2024 Pt tells me [...] Encounters Date Type Department Care Team Description 05/20/2025 Orders Only GENERIC EXTERNAL DATA DEPARTMENT Provider, Generic External Data 05/19/2025 2:30 PM EST Office Visit [facility] [address] [place] [address] Jhonathan, Urvashi, OD Mild nonproliferative diabetic retinopathy of 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 edema associated with type 1 diabetes mellitus (HCC) (Primary Dx); History of panretinal photocoagulation; Hypertensive retinopathy of both eyes; Early cataracts, bilateral; Presbyopia 05/19/2025 Travel 05/14/2025 Refill [facility] [address] [place] [address] Harriet Cortez DO 04/13/2025 Telephone [facility] [address] [place] [phone] Tian Chan MD June04/08/2025 9:40 AM EDT Office Visit [facility] [address] [place] [address] Harriet Cortez DO Generalized abdominal pain (Primary Dx); Nausea and vomiting, unspecified vomiting type 04/08/2025 Travel 03/18/2025 1:00 PM EDT Office Visit [facility] [address] [place] [phone] Tian Chan MD 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) (Primary Dx); Primary hypertension; Mixed hyperlipidemia; Insulin pump in place; Mild nonproliferative diabetic retinopathy of 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 edema associated with type 1 diabetes mellitus (HCC); Tubular adenoma; Mild intermittent asthma without complication; Anemia, unspecified type; Encounter for immunization 03/18/2025 Travel 03/17/2025 Telephone [facility] [address] [place], [place] [phone] Tian Chan MD chart prep 03/11/2025 Patient Outreach [facility] [address] [place] [address] Tian Chan MD Pre-visit Planning (SDOH was already completed) from Last 3 Months Immunizations Immunization Administration [...] Tobacco: Never Tobacco Cessation:Counseling Given: Not Answered Alcohol Use Standard Drinks/Week Comments Never 0 [...] Sign Reading Time Taken Comments Blood Pressure 140/80 04/08/2025 9:52 AM EDT Pulse 64 04/08/2025 9:52 AM EDT Temperature 36.9 C (98.4 F) 04/08/2025 9:52 AM EDT Respiratory Rate 20 04/08/2025 9:52 AM EDT Oxygen Saturation 100% 04/08/2025 9:52 AM EDT Inhaled Oxygen Concentration - - Weight 71.2 kg (157 lb) 04/08/2025 9:52 AM EDT Height 165.1 cm (5' 5 ) 04/08/2025 9:52 AM EDT Body Mass Index 26.13 04/08/2025 9:52 AM EDT Plan of Treatment Upcoming Encounters Date Type Department Care Team (Late st Contact Info) Description 06/29/2025 2:30 PM EST Office Visit [facility] [address] [place] [address] Tian Chan MD [address] [place] [address] Health Maintenance Due Date Last Done Comments CT Colonography 1968 FIT DNA/Cologuard 1968 FIT 1968 FOBT 1968 Sigmoidoscopy 1968 Diabetes: Foot Exam 1978 Hepatitis B Vaccines (2 of 3 - 19+ 3-dose series) 05/02/2009 04/04/2009 RSV Patients and Patients Aged 60 years or older (1 - Risk 50-74 years 1-dose series) 2018 Colonoscopy 06/23/2024 06/23/2019 Colorectal Cancer Screening 06/23/2024 COVID-19 Vaccine ( season) 2025 06/27/2021, 09/06/2020, 08/09/2020 Diabetes: Hemoglobin A1C 06/18/2025 025, 11/19/2024, 10/15/2023, Additional history exists SDOH Screening 11/12/2025 11/12/2024 Alcohol/Substance Use Screening 11/19/2025 11/19/2024 Depression Screening 11/19/2025 11/19/2024, 11/20/19 25 Disability Screening 11/19/2025 11/19/2024 Pneumococcal Vaccine: 50+ Years (2 of 2 - PCV) 11/19/2025 02/26/2020, 01/01/2008, 06/09/2003 Postponed from 02/25/2021 (Patient Refused) Diabetes: Urine Protein Screening 02/17/2026 02/17/2025, 11/19/2023, 09/14/2023, Additional history exists Lipid Panel 03/24/2026 03/24/2025, 090 08/2024, 04/01/2024, Additional history exists Tobacco Screening 04/08/2026 04/08/2025 Eye Exam 05/19/2026 05/19/2025, 120 08/2024, 05/19/2025, Additional history exists DTaP/Tdap/Td Vaccines (2 - Td or Tdap) 05/27/2028 05/27/2018, 01/11/2012, 03/31/2007, Additional history exists HIV Screening Completed 11/17/2022 Hepatitis C Screening [...] WHOLE BLOOD Routine 05/20/2025 9:19 AM EST POCT INFLUENZA A (ID NOW RAPID MOLECULAR) Routine 04/08/2025 10:33 AM EDT Nausea and vomiting, unspecified vomiting type POCT INFLUENZA B (ID NOW RAPID MOLECULAR) Routine 04/08/2025 10:32 AM EDT Nausea and vomiting, unspecified vomiting type POCT COVID-19 AG GARDNER ID NOW Routine 04/08/2025 10:32 AM EDT Nausea and vomiting, unspecified vomiting type VITAMIN B12/FOLATE, SERUM PANEL Routine 03/24/2025 8:45 AM EDT Anemia, unspecified type IRON AND TOTAL IRON BINDING CAPACITY Routine 03/24/2025 8:45 AM EDT Anemia, unspecified type LIPID PANEL, STANDARD Routine 03/24/2025 8:45 AM EDT Mixed hyperlipidemia COMPREHENSIVE METABOLIC PANEL Routine 03/24/2025 8:45 AM EDT Type 1 diabetes mellitus with diabetic polyneuropathy (HCC) Primary hypertension POCT GLYCATED HEMOGLOBIN, TOTAL Routine 03/18/2025 1:13 PM EDT 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) POCT GLUCOSE Routine 03/18/2025 1:03 PM EDT 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 05/20/2025 9:19 AM EST 05/20/2025 9:23 AM EST us Generic External Data Provider LAB BLOOD ORDERAB LES Final Result Performing Organization Address City/[facility]/ZIP Co de Phone Number [facility] [address] [place] [phone] * POCT Rapid Influenza A [facility] ID NOW (04/08/2025 10:33 AM EDT) Influenza A Negative Negative, Indeterminate [facility] QC Media Lot # [id number] [facility] Lot# Expiration Date [id number] [facility] Swab 04/08/2025 10:3 3 AM EDT us Harriet Cortez DO POINT OF CARE TEST ENTER/RADHA T ORDERABLES Final Result [facility] [address] [place] [address] [phone] * POCT Rapid Influenza B [facility] ID NOW (04/08/2025 10:32 AM EDT) Influenza B Negative Negative, Indeterminate [facility] QC Media Lot # [id number] [facility] Lot# Expiration Date ,027 [facility] Swab 04/08/2025 10:3 2 AM EDT Harriet Cortez DO POINT OF CARE TEST ENTER/RADHA T ORDERABLES Final Result [facility] [address] [place] [address] [phone] * POCT Rapid Covid-19 GARDNER ID NOW (04/08/2025 10:32 AM EDT) Pathologist [facility] Coronavirus Antigen PCR Negative Negative, Indeterminate, None Detected, Invalid, Specimen unsatisfactory for evaluation, Weakly Positive, 2+ QC Media Lot # [id number] Lot# Expiration Date ,026 Swab 04/08/2025 10:3 2 AM EDT Harriet Cortez DO POINT OF CARE TEST ENTER/RADHA T ORDERABLES Final Result * Vitamin B12/Folate, Serum Panel (03/24/2025 8:45 AM EDT) Vitamin B12 633 200 - 900 pg/mL [facility] Comment:NORMAL 200-900 PG/ML INDETERMINATE 160-199 PG/ML DEFICIENT < 160 PG/ML Folate 10.0 > or = 4.0 ng/mL [facility] Comment:Reference Values:> o r = 4.0 ng/mL< 4.0 ng/mL suggests folate deficiency Methotrexate, aminopterin and folinic acid(leucovorin) are chemotherapeutic agents whose molecularstructures are similar to folate; therefore, the Architectfolate assay cannot be used for patients using these drugs. Blood Venous blood specimen / Unknown 03/24/2025 8:45 AM EDT 03/24/2025 11:37 AM EDT Tian Spicer MD LAB BLOOD ORDERABLES Final Result Performing Organization Address [facility]/ZIP Co de Phone Number [facility] [address] [place] [phone] * Iron And Total Iron Binding Capacity (03/24/2025 8:45 AM EDT) Iron 81 45 - 160 mcg/dL [facility] Total Iron Binding Capacity 234 228 - 428 mcg/dL [facility] Percent Iron Saturation 35 15 - 50 % [facility] Unsaturated Iron Binding 153 ug/dL [facility] Blood Venous blood specimen / Unknown 03/24/2025 8:45 AM EDT 03/24/2025 11:37 AM EDT Tian Spicer MD LAB BLOOD ORDERABLES Final Result Performing Organization Address [facility] Co de Phone Number [facility] [address] [place] [phone] * Lipid Panel, Standard (03/24/2025 8:45 AM EDT) Triglycerides 56 <150 mg/dL [facility] Comment:Desirable Triglyceri de: less than 150 mg/dLBorderline High Triglyceride 150-199 mg/dLHigh Triglyceride: 200-499 mg/dLVery High Triglyceride: greater than or equal to 5OO mg/dL Cholesterol 145 <200 mg/dL [facility] Comment:Desirable Cholestero l: less than 200 mg/dLBorderline High Cholesterol: 200-239 mg/dLHigh Cholesterol: greater than 239 mg/dL LDL Cholesterol Calculated 81 <100 mg/dL [facility] Comment:Desirable LDL: less than 100 mg/dLNear Optimal/Above Optimal LDL: 110- 129 mg/dLBorderline High LDL: 130-159 mg/dLHigh LDL: 160-189 mg/dLVery High LDL: greater than or equal to 190 mg/dL HDL Cholesterol 53 >40 mg/dL [facility] Comment:Desirable HDL: great er than 40 mg/dL Note: This HDL assay may give artificially low results in patients with liver disease. Blood Venous blood specimen / Unknown 03/24/2025 8:45 AM EDT 03/24/2025 11:37 AM EDT us Tian Spicer MD LAB BLOOD ORDERABLES Final Result [facility] [address] [place] [phone] * (ABNORMAL) Comprehensive Metabolic Panel (03/24/2025 8:45 AM EDT) Sodium 140 135 - 145 mmol/L [facility] Potassium 4.2 3.3 - 5.1 mmol/L [facility] Chloride 109(H) 96 - 108 mmol/L [facility] Carbon Dioxide 28 22 - 29 mmol/L [facility] Anion Gap 7(L) 12 - 20 [facility] Urea Nitrogen (BUN) 18(H) 9 - 16 mg/dL [facility] Creatinine, Serum 1.03 0.5 - 1.4 mg/dL [facility] Estimated Glomerular Filt Rate >60 [facility] Comment:Chronic Kidney Disea se: Estimated GFR < 60 mL/min/1.87f4Grjwfv Kidney Disease: Estimated GFR < 15 mL/min/1.73m2 Glucose 112 60 - 115 mg/dL [facility] Calcium 9.2 8.4 - 10.2 mg/dL [facility] Bilirubin, Total 0.3 0.0 - 1.0 mg/dL [facility] Aspartate Amino Transferase 29 5 - 37 U/L [facility] Alanine Aminotransferase 27 0 - 40 U/L [facility] Total Protein 6.6 6.5 - 8.0 g/dL [facility] Albumin Level 4.2 3.5 - 5.0 g/dL [facility] Alkaline Phosphatase 65 39 - 117 U/L [facility] Blood Venous blood specimen / Unknown 03/24/2025 8:45 AM EDT 03/24/2025 11:37 AM EDT us Tian Spicer MD LAB BLOOD ORDERABLES Final Result [facility] [address] [place] [phone] * (ABNORMAL) POCT Hgb A1c (03/18/2025 1:13 PM EDT) Hemoglobin A1C 6.7(A) 4.0 - 5.7 % QC Media Lot # [id number] Lot# Expiration Date 51 Blood 03/18/2025 1:13 PM EDT us Tian Spicer MD POINT OF CARE TEST EN TER/EDIT ORDERABLES Final Result * (ABNORMAL) POCT Glucose (03/18/2025 1:03 PM EDT) Glucose Blood, POC 280(A) 60 - 200 mg/dL QC Media Lot # [id number] Lot# Expiration Date 22,726 Blood Capillary blood specimen / Unknown 03/18/2025 1:03 PM EDT us Tian Spicer MD POINT OF CARE TEST EN TER/EDIT ORDERABLES Final Result * (ABNORMAL) Albumin, Random Urine W/Creatinine (02/17/2025 8:02 AM EDT) Creatinine, Urine 150.65 mg/dL [facility] Microalbumin Urine 119.0 mg/L [facility] Microalbum Creatinine Ratio Ur 78.9(H) <30 ug/mg cr [facility] Comment:Albumin/Creatinine R atio Reference Ranges: Normal: < 30 ug/mg creatinine Microalbuminuria: 30 - 300 ug/mg creatinineClinical Albuminuria: > 300 ug/mg creatinine 02/17/2025 8:02 AM EDT 02/17/2025 8:42 AM EDT Generic External Data Provider LAB URINE ORDERAB LES Final Result Performing Organization Address [facility]/ZIP Co de Phone Number [facility] [address] [place] [phone] * Hepatitis C Antibody Reflex (11/17/2022 10:25 AM EDT) Hepatitis C Antibody Nonreactive Nonreactive [facility] Comment:Antibodies to HCV no t detected; does not exclude early acuteHCV infection. 11/17/2022 10:2 5 AM EDT 11/17/2022 10:25 AM EDT [facility] External Provider LAB BLO OD ORDERABLES Final Result Performing Organization Address [facility] Co de Phone Number [facility] [address] [place] [phone] * HIV Ab/Ag ([facility]) (11/17/2022 10:25 AM EDT) HIV AB/AG Nonreactive Nonreactive [facility] Comment:HIV-1 p24 Ag and/or HIV-1/HIV-2 Ab not detected.A test result that is nonreactive does not exclude thepossibility of exposure to or infection with HIV-1 and/orHIV-2. Nonreactive results in this assay for individualswith prior exposure to HIV-1 and/or HIV-2 may be due toantigen and antibody levels that are below the limit ofdetection of this assay.The [employer] Operator HIV Ag/Ab Combo assay result andsupplemental assay results should be interpreted inconjunction with the patient's clinical presentation,history and other laboratory results. If the results areinconsistent with clinical evidence, additional testing issuggested to confirm the result. 11/17/2022 10:2 5 AM EDT 11/17/2022 10:25 AM EDT [facility] External Provider LAB BLO OD ORDERABLES Final Result [facility] [address] [place] [phone] * Colonoscopy (06/23/2019) Colonoscopy Normal Normal 06/23/2019 Narrative Gloria Rai - 06/23/2019 Recommended 5 year follow up Historical Provider MD HEALTH MAINTENANCE Edited Result - Final from Last 3 Months or Most Recently Relevant to Health Maintenance Insurance [facility] STANDARD Care Teams Privacy Attorney Relationship Specialty Start Date End Date Tian Chan MD [address] [place] [phone] PCP - General Internal Medicine 10/04/15
--- OUTSIDE RECORDS SUMMARY | 2025-05-20 09:46 | XMS_ITS | Encounter Summary ---
Author Organization [employer] Address [address] [facility] 7t [place] [address] Care Team Providers Care Frequency Checker Name Role Phone Tian Chan MD Primary Care Provide r Encounter Details Date Type Department Care Team (Late st Contact Info) Description 10/25/2022 Abstract [facility] [address] [place] [phone] Tian Chan MD [address] [place], [place] [phone] Social History Tobacco Use Types Packs/Day Years [...] Description 06/29/2025 2:30 PM EST Office Visit [facility] [address] [place], [place] [phone] Tian Chan MD [address] [place], [place] [phone] documented as of this encounter Procedures Procedure Name Priority Date/Time Associated Diagnosis Comments COLONOSCOPY Routine 06/23/2019 documented in this encounter Results * Colonoscopy (06/23/2019) Colonoscopy Normal Normal 06/23/2019 Narrative Gloria Rai - 06/23/2019 Recommended 5 year follow up us Historical Provider HEALTH MAINTENANCE Edited Result - Final documented in this encounter Visit Diagnoses Not on filedocumented in this encounter Care Teams Frequency Checker Relationship Specialty Start Date End Date Tian Chan MD [address] [place] [phone] PCP - General Internal Medicine 10/04/15 documented as of this encounter
--- OUTSIDE RECORDS SUMMARY | 2025-05-20 09:46 | XMS_ITS | Encounter Summary ---
Author Organization [employer] Address [address] [facility] [address]t [place] [address] Care Team Providers Care Geomagnetician Name Role Phone Tian Chan MD Primary Care Provide r Encounter Details Date Type Department Care Team (Late st Contact Info) Description 08/20/2022 Orders Only [facility] [address] [place], [place] [phone] Harriet Garcia LPN Social History Tobacco Use [...] 06/29/2025 2:30 PM EST Office Visit [facility] [address] [place] [address] Tian Chan MD [address] [place] [phone] documented as of this encounter Visit Diagnoses Not on filedocumented in this encounter Care Teams Geomagnetician Relationship Specialty Start Date End Date Tian Chan MD [address] [place] [phone] PCP - General Internal Medicine 10/04/15 documented as of this encounter
--- OUTSIDE RECORDS SUMMARY | 2025-05-20 09:46 | XMS_ITS | Encounter Summary ---
Author Organization [employer] Address [address] [facility] 7t [place] [address] Care Team Providers Care Asbestos Wire Finisher Name Role Phone Tian Chan MD Primary Care Provide r Encounter Details Date Type Department Care Team (Latest Contact Info) Description 10/17/2021 Abstract [facility] CONVERSIONS Dental, Provider, DDS Social [...] Description 06/29/2025 2:30 PM EST Office Visit [facility] [address] [place] [address] Tian Chan MD [address] [place] [address] documented as of this encounter Visit Diagnoses Not on filedocumented in this encounter Care Teams Asbestos Wire Finisher Relationship Specialty Start Date End Date Tian Chan MD [address] [place], [place] [phone] PCP - General Internal Medicine 10/04/15 documented as of this encounter
== END 2025-05-20 09:54 | disposition home or self-care (01) ==
LOC: HO.ENCR 09:00
PROVIDERS: PCP Internal Medicine; Visit Provider Internal Medicine Endocrinology, Diabetes & Metabolism
DX: E10.65 Type 1 diabetes mellitus with hyperglycemia (principal)
CPT/HCPCS: 99213

== ENCOUNTER → 2025-05-20 08:59 | Outpatient (BNVA) | payer OTHER, MEDICAID, SELFPAY | PROVIDERS: PCP Internal Medicine; Visit Provider Internal Medicine Endocrinology, Diabetes & Metabolism | DX: E10.65 Type 1 diabetes mellitus with hyperglycemia (principal); Z96.41 Presence of insulin pump (external) (internal) | CPT/HCPCS: 82947; 83036 ==

== ENCOUNTER 2025-05-25 14:29 | Outpatient (AMB) | payer OTHER, MEDICAID, SELFPAY ==
--- NOTE | 2025-05-25 14:34 | MHC.AMDMED ---
Intake Intake Visit Reasons: 30 min. Licensed Nuclear Operator Required: No Accompanied by: Self / Same As Patient Allergies almond Allergy (Severe, Verified 05/20/25 09:12) THROAT CLOSES UP divalproex sodium (From [facility]) Allergy (Unknown, Verified 05/20/25 09:12) HIVES HPI Comprehensive Diabetes Asmnt Most Recent Diabetes Results: Microalb/Creat Ratio, (<30) 78.9 ug/mg cr H 02/17/25 Cholesterol, (<200) 145 mg/dL 03/24/25 HDL Cholesterol, (>40) 53 mg/dL 03/24/25 Triglycerides, (<150) 56 mg/dL 03/24/25 Creatinine, (0.5-1.4) 1.03 mg/dL 03/24/25 BUN, (9-16) 18 mg/dL H 03/24/25 Sodium, (135-145) 140 mmol/L 03/24/25 Potassium, (3.3-5.1) 4.2 mmol/L 03/24/25 Chloride, (96-108) 109 mmol/L H 03/24/25 Carbon Dioxide, (22-29) 28 mmol/L 03/24/25 Calcium, (8.4-10.2) 9.2 mg/dL Δ 03/24/25 AST, (5-37) 29 U/L 03/24/25 ALT, (0-40) 27 U/L 03/24/25 Total Protein, (6.5-8.0) 6.6 g/dL 03/24/25 Albumin, (3.5-5.0) 4.2 g/dL 03/24/25 [facility] Medical History Mass of buttock History of anal dysplasia Sleep apnea Vitamin D deficiency 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 Diabetic nephropathy associated with type 1 diabetes mellitus Diabetic polyneuropathy associated with type 1 diabetes mellitus Diabetes type 1, uncontrolled AIN grade II Hyperlipidemia Hypertension Diabetes mellitus Surgical History History of excision of mass (~02/11/23) History of excision of lesion History of colonoscopy (~2013) Family History Father History of hypertension Mother History of diabetes mellitus History of cardiovascular disorder History of hypertension Son History of muscular dystrophy Maternal Uncle History of prostate cancer Social History Household Members: Spouse Alcohol intake: current Alcohol intake frequency: holidays/special occasions only Patient Tobacco Use Status: Never used Tobacco e-Cigarette/Vaping Use: Currently Using Substance Use Type: Former Substance User and Marijuana Current occupational status: employed 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 Omnipod ID: [email or web address] Omnipod password At today's visit we downloaded Dexcom G7 and Omnipod 5 juan c on patient's cell phone Set up both apps, started Dexcom G7 sensor through Omnipod [address] new Omnipod 5 pod Left with pod and Dexcom G7 connected in in place Setting verified by [facility], No changes to insulin pump made today Basal rate(s) (units/hour) : 12 AM to 12 AM 0.55 units / hr 2 PM? to 12 AM ? 0.9 units / hr? Bolus setting Insulin Carbohydrate Ratio (s) 12 AM? to? 11AM? 1:8 11 AM to 3 PM 1:9 3 PM to 12 AM 1:8 Correction Factor / Sensitivity Factor 12 AM-5:30 AM 1:56 5:30 AM to 12 AM 1:48 Target: 110 mg/dL Target threshold 110 mg/dL Active Insulin Time:?3.5 hours Coding Level of Care Code Est Pt Level 1 (39382) Diagnoses Uncontrolled type 1 diabetes mellitus with hyperglycemia E10.65 Glycemic state: with hyperglycemia
== END 2025-05-25 16:05 | disposition home or self-care (01) ==
LOC: HO.ENCR 14:29
PROVIDERS: PCP Internal Medicine; Visit Provider Registered Nurse Diabetes Educator
DX: E10.65 Type 1 diabetes mellitus with hyperglycemia (principal)
CPT/HCPCS: 99499